=== PATIENT | male | born 1960 | race Caucasian/White ===

== ENCOUNTER 2021-08-24 13:27 | Inpatient (IN) ==
[2021-08-24 13:47] VITALS: BMI 32.1
[2021-08-24] MEDS ORDERED: NS 1,000 ML IV 1,000 ML ONE ×3 (13:57→16:31)
[2021-08-24] MEDS ORDERED: NS 1,000 ML IV 1,000 ML IV ONE ×3 (14:03→16:29)
[2021-08-24 14:13] LABS: BASOPHILS % (AUTO) 0.3 % (0.2-1.0); HEMATOCRIT 37.6 % (42.0-54.0); HEMOGLOBIN 12.8 g/dL (13.5-18.0); LYMPHOCYTES # (AUTO) 0.6 X10^3/uL (1.3-2.9); LYMPHOCYTES % (AUTO) 6.1 % (21.0-51.0); MEAN CORPUSCULAR HEMOGLOBIN 27.1 pg (27.0-34.0); MEAN CORPUSCULAR VOLUME 79.8 fL (80.0-100.0); MEAN PLATELET VOLUME 7.6 fL (7.4-11.0); MONOCYTES # (AUTO) 1.3 x10^3/uL (0.3-0.8); MONOCYTES % (AUTO) 13.3 % (0.0-13.0); NEUTROPHILS # (AUTO) 7.8 x10^3/uL (2.2-4.8); NEUTROPHILS % (AUTO) 80.3 % (42.0-75.0); RED BLOOD COUNT 4.71 X10^6/uL (4.7-6.0); RED CELL DISTRIBUTION WIDTH 16.4 % (11.6-16.5); WHITE BLOOD COUNT 9.7 X10^3/uL (3.6-10.0)
[2021-08-24 14:22] LABS: ALANINE AMINOTRANSFERASE 31 Units/L (12-78); ALBUMIN 3.5 g/dL (3.4-5.0); ALKALINE PHOSPHATASE 66 Units/L (46-116); ASPARTATE AMINO TRANSFERASE 16 Units/L (15-37); BLOOD UREA NITROGEN 31 mg/dL (7-18); CARBON DIOXIDE 24.2 mmol/L (21-32); CHLORIDE 94 mmol/L (98-107); COR NA(FOR HYPERGLY) 135 mmol/L (136-145); CREATININE 2.09 mg/dL (0.70-1.30); SODIUM 130 mmol/L (136-145); TOTAL PROTEIN 7.5 g/dL (6.4-8.2); eGFR NON BLACK RACES 34 (>60)
[2021-08-24 15:17] LABS: CKMB % 0.7 % (<4); CREATINE KINASE 144 Units/L (39-308); CREATINE KINASE MB < 1.0 ng/mL (0-4.0); MAGNESIUM 1.1 mg/dL (1.7-2.9); TSH (3RD GENERATION) 1.547 uIU/mL (0.358-3.74)
--- NOTE | 2021-08-24 15:42 | DR.GENAD ---
HPI Time Seen Time Seen by Provider: 08/24/21 14:00 PCP Primary Care Physician: andres hamilton HPI Comment HPI Comment: Acccording to patient was well before 3 days ago.They ate at a [place] restaurent and thne later develoed nausea vomiting and abdominal pain .Vomiting improved this morning however now has developed non bloody watery diarrhea Has not jennifer eating any solid food but has drunk oral hydration and has been able to keep it down.With onset of diarrhea patient has been more drowsier .Pt did take 200 mg of gabapentin and blood sugar has been running over 200.No one at home with similar problems Complaint/Symptoms Chief Complaint Doctors Comments: diarrhea Chief Complaint:: dehydrated - kept down 3 liquid IVs sincer yesterday, diabetic - last check was 303 Self Treatment fo Chief Complaint: liquid IV po x 3 since yesterday Nurses notes reviewed Nurses Notes Review: Yes Source History Provided: Patient and Significant Other Mode of Arrival Mode of Arrival: Wheelchair Timing Onset of Chief Complaint: 08/23/21 Came on: Gradually Duration Duration: Since Onset Duration: Days Severity Severity: Moderate PMH PMH Past Medical History: Yes Past Medical History: Diabetes, Dyslipidemia, GERD, Headaches and Hypertension Past Medical History Comment: charcot foot problem to the right foot - in boot Past Surgical History: Yes Surgical History: Cholecystectomy Past Surgical History Comment: begnin lesion, vasectomy, vascular/ vein surg, Family History History of Family Medical Conditions: Yes Family Medical History: Diabetes Mellitus, Cancer, [place], Coronary Artery Disease and Hypertension Social History Does patient currently use any type of tobacco product: No Have you used tobacco products in the last 12 months: No Type of Tobacco Use: None Does any household member use tobacco: No Alcohol Use: None Do you use any recreational Drugs:: No Lives With: Spouse Lives Where: Home Infectious screening In the last 2 months have you had wt loss of >10#?: NO Have you had fever, night sweats or hemotysis?: No Have you traveled outside the country in the last 6 months?: No Isolation: Standard ROS Review of Systems Constitutional: No Symptoms Reported Eyes: No Symptoms Reported ENTM: No Symptoms Reported Respiratoy: No Symptoms Reported Cardiovascular: No Symptoms Reported Gastrointestinal/Abdominal: See HPI Genitourinary: See HPI Neurological: See HPI Musculoskeletal: No Symptoms Reported Integumentary: No Symptoms Reported Hematologic/Lymphatic: No Symptoms Reported Endocrine: No Symptoms Reported Psychiatric: No Symptoms Reported PE Vital Signs Vitals: Temperature 97.4 F Pulse Rate 136 Respiratory Rate 42 Blood Pressure [Left Arm] 136/74 Blood Pressure 174/69 O2 Sat by Pulse Oximetry 95 General Limitations: No Limitations General Appearance: Other (drowsy but arousabale ) Head Head Exam: Normal Inspection, Atraumatic and Normocephalic Eyes Eye exam: PERRL ENT ENT Exam: Mucous Membranes Dry TM/Canal Exam: Bilateral: Normal Throat Exam: Normal Inspection Neck Neck Exam: Normal Inspection and Full ROM Chest Chest Inspection: Normal Inspection and Symmetric Chest Wall Rise Respiratory Respiratory Exam: Normal Lung Sounds Bilat Respiratory Exam: Bilateral: Clear to Auscultation Cardiovascular Cardiovascular Exam: Tachycardia, +S1 and +S2 Abdominal Exam Abdominal Exam: Normal Bowel Sounds, Soft and Hyperactive Bowel Sounds Neurologic Neurological Exam: Alert Skin Skin Exam: Normal Color Other Exam Other Exam: charcot joint right ankle MDM Additional Information Additional Information Obtained From: Old Records Differential Diagnosis Differential Diagnosis: gastorenetritis ,dehydration ,Tacchycardia ,uncontrolled DM type2 COURSE Treatment Treatment: labs ,IV fluids EKG ,magneseium supplement . ROR Labs Reviewed Laboratory Results Reviewed?: Yes Result Diagrams: 08/24/21 14:00 08/24/21 14:00 Laboratory: WBC 9.7 X10^3/uL (3.6-10.0) 08/24/21 14:00 RBC 4.71 X10^6/uL (4.7-6.0) 08/24/21 14:00 Hgb 12.8 g/dL (13.5-18.0) L 08/24/21 14:00 Hct 37.6 % (42.0-54.0) L 08/24/21 14:00 MCV 79.8 fL (80.0-100.0) L 08/24/21 14:00 MCH 27.1 pg (27.0-34.0) 08/24/21 14:00 MCHC 34.0 g/dL (33.0-35.0) 08/24/21 14:00 RDW 16.4 % (11.6-16.5) 08/24/21 14:00 Plt Count 221 X10^3/uL (150.0-450.0) 08/24/21 14:00 MPV 7.6 fL (7.4-11.0) 08/24/21 14:00 Neut % (Auto) 80.3 % (42.0-75.0) H 08/24/21 14:00 Lymph % (Auto) 6.1 % (21.0-51.0) L 08/24/21 14:00 [place] % (Auto) 13.3 % (0.0-13.0) H 08/24/21 14:00 Eos % (Auto) 0.0 % (0.9-2.9) L 08/24/21 14:00 Baso % (Auto) 0.3 % (0.2-1.0) 08/24/21 14:00 Neut # (Auto) 7.8 x10^3/uL (2.2-4.8) H 08/24/21 14:00 Lymph # (Auto) 0.6 X10^3/uL (1.3-2.9) L 08/24/21 14:00 [place] # (Auto) 1.3 x10^3/uL (0.3-0.8) H 08/24/21 14:00 Eos # (Auto) 0.0 x10^3/uL (0.0-0.2) 08/24/21 14:00 Baso # (Auto) 0.0 X10^3/uL (0.0-0.1) 08/24/21 14:00 Absolute Nucleated RBC 0.0 /100WBC 08/24/21 14:00 Sodium 130 mmol/L (136-145) L 08/24/21 14:00 Corrected Sodium 135 mmol/L (136-145) L 08/24/21 14:00 Potassium 4.4 mmol/L (3.5-5.1) 08/24/21 14:00 Chloride 94 mmol/L (98-107) L 08/24/21 14:00 Carbon Dioxide 24.2 mmol/L (21-32) 08/24/21 14:00 BUN 31 mg/dL (7-18) H 08/24/21 14:00 Creatinine 2.09 mg/dL (0.70-1.30) H 08/24/21 14:00 Est GFR (MDRD) Af Amer 42 (>60) L 08/24/21 14:00 Est GFR (MDRD) Non-Af 34 (>60) L 08/24/21 14:00 Glucose 297 mg/dL (65-99) H 08/24/21 14:00 Calcium 9.0 mg/dL (8.5-10.1) 08/24/21 14:00 Corrected Calcium TNP 08/24/21 14:00 Magnesium 1.1 mg/dL (1.7-2.9) L 08/24/21 14:00 Total Bilirubin 1.70 mg/dL (0.2-1.0) H 08/24/21 14:00 Direct Bilirubin 0.40 mg/dL (0-0.2) H 08/24/21 14:00 AST 16 Units/L (15-37) 08/24/21 14:00 ALT 31 Units/L (12-78) 08/24/21 14:00 Alkaline Phosphatase 66 Units/L (46-116) 08/24/21 14:00 Creatine Kinase 144 Units/L (39-308) 08/24/21 14:00 CK-MB (CK-2) < 1.0 ng/mL (0-4.0) 08/24/21 14:00 CK/CKMB % Calc 0.7 % (<4) 08/24/21 14:00 Troponin I High Sens 23.4 ng/L (4.0-60.0) 08/24/21 14:00 Total Protein 7.5 g/dL (6.4-8.2) 08/24/21 14:00 Albumin 3.5 g/dL (3.4-5.0) 08/24/21 14:00 Globulin 4.0 g/dL (2.5-4.5) 08/24/21 14:00 Albumin/Globulin Ratio 0.9 Ratio (1.1-2.1) L 08/24/21 14:00 TSH 3rd Generation 1.547 uIU/mL (0.358-3.74) 08/24/21 14:00 SARS CoV-2 RNA Rapid ANIBAL Negative (NEGATIVE) 08/24/21 15:05 EKG atrial flutter according to its chronic with rate of 140 cardiac enzymes normal Opioid Opioid Risk Tool Age (Donny box if 16-45): No History of Preadolescent Sexual Abuse: No Total: 0 Total Score Risk Category: Low Risk Copyright: Sesar ROGER predicting aberrant behaviors Diagnosis Discharge Problem: Dehydration, severe, Atrial flutter, paroxysmal, Hypomagnesemia Uncontrolled diabetes mellitus Qualifiers: Diabetes mellitus type: type 2 Glycemic state: with hyperglycemia Qualified Code(s): E11.65 - Type 2 diabetes mellitus with hyperglycemia Acute renal failure Qualifiers: Acute renal failure type: unspecified Qualified Code(s): N17.9 - Acute kidney failure, unspecified Instructions Forms: Precautions for COVID19 [facility] Social Distancing
[2021-08-24] MEDS ORDERED: CARDIZEM INJ 50 MG VIAL IVP ONE ×2 (16:10→16:58)
[2021-08-24] MEDS ORDERED: CARDIZEM INJ 50 MG VIAL ONE (16:12)
[2021-08-24] MEDS ORDERED: MAGNESIUM SULFATE 1 GRAM/100 mL PREMIX 1 G/100 ML BAG IV ONE ×2 (16:14→16:15)
[2021-08-24] MEDS ORDERED: ZOFRAN INJ 4 MG VIAL ONE (16:33)
[2021-08-24] MEDS: ZOFRAN INJ 4 MG VIAL IVP PRN (16:34)
[2021-08-24] MEDS: TOPROL XL PO SCH (18:38)
[2021-08-24] MEDS: NS 1,000 ML IV 1,000 ML IV SCH (18:38)
[2021-08-24] MEDS: ELIQUIS PO SCH ×2 (18:38→20:01)
[2021-08-24] MEDS ORDERED: TYLENOL 325 MG TAB PO ONE (19:45)
--- NOTE | 2021-08-24 19:46 | RAD ---
HISTORYAbscess, pain and swellingSTUDYFOOT, RIGHTCOMPARISONNone availableTECHNIQUERight foot radiographs, 3 views, AP, oblique and lateral projectionsFINDINGSAge indeterminate fracture at the medial aspect of the navicular bone as well as a type 2 os navicular.Normal joint spaces.Diffuse soft tissue edema.No soft tissue gas visualized.IMPRESSION1. Age indeterminate fracture at the medial aspect of the navicular bone as well as a type 2 os navicular.2. Diffuse soft tissue edema. No soft tissue gas visualized.Electronically signed by: Jeremias Alberto (Aug 24, 2021 19:45:10)
[2021-08-24] MEDS ORDERED: NS 100 ML IV 100 ML ONE (19:48)
[2021-08-24] MEDS ORDERED: INVanz INJ 1 GRAM VIAL ONE (19:48)
[2021-08-24] MEDS ORDERED: ZYVOX TAB 600 MG ONE (19:48)
[2021-08-24] MEDS: TYLENOL 325 MG TAB PO PRN (19:50)
[2021-08-24] MEDS: ZYVOX TAB 600 MG PO SCH (20:02)
[2021-08-24] MEDS: NovoLIN R (or HumuLIN R) SUBCUT PRN (20:16)
[2021-08-24] MEDS: SNACK - Diabetic Appropriate PO SCH (20:55)
[2021-08-24] MEDS ORDERED: ROSUVASTATIN 40 MG PO SCH (21:00)
[2021-08-24] MEDS ORDERED: INVanz INJ 1 GRAM VIAL 1 G in NS 100 ML IV 100 ML IV SCH (21:00)
[2021-08-24] MEDS ORDERED: CRESTOR TAB 10 MG PO ONE (21:14)
[2021-08-24] MEDS: FLOMAX PO SCH (21:16)
--- NOTE | 2021-08-24 21:17 | CT ---
HISTORYAbscess, pain and swelling with open woundSTUDYLOWER EXT W/O CONCOMPARISONNone available.TECHNIQUENon-contrast axial CT images of the right lower extremity. Images were reformatted into coronal and sagittal planes for further evaluation.Radiation dose: 397.70 mGy-cm total DLPFINDINGSAge-indeterminate fracture in the medial aspect of the navicular bone.Incidental type 2 os navicular.Age-indeterminate fracture in the medial aspect of the distal calcaneus.Small amount of gas surrounding the fracture sites along the medial aspect of the navicular bone.Tiny foci of gas in the sinus tarsi.Small amount of gas in the posterior tibiotalar joint.Diffuse soft tissue edema.Nonspecific low-attenuation collection in the lateral foot adjacent to the base of the 4th metatarsal.Soft tissue edema in the lateral foot deep to the cuboid bone.IMPRESSION1. Age-indeterminate fractures in the medial aspect of the navicular bone and the medial distal aspect of the calcaneus.2. Gas adjacent to the fracture sites, in the sinus tarsi and scattered in the soft tissues near the base of the 4th metatarsal is most consistent with gas gangrene. Gas within the posterior tibiotalar joint is consistent with gangrene/septic arthritis.3. Low-attenuation collection near the base of the 4th metatarsal could represent an abscess; not well characterized without intravenous contrast.Electronically signed by: Jeremias Alberto (Aug 24, 2021 21:16:15)
[2021-08-25] MEDS: ZOFRAN INJ 4 MG VIAL IVP PRN (03:05)
[2021-08-25] MEDS: NS 1,000 ML IV 1,000 ML IV SCH ×3 (05:17→16:28)
[2021-08-25 05:28] LABS: BASOPHILS % (AUTO) 0.3 % (0.2-1.0); HEMATOCRIT 28.5 % (42.0-54.0); HEMOGLOBIN 9.8 g/dL (13.5-18.0); LYMPHOCYTES # (AUTO) 0.6 X10^3/uL (1.3-2.9); LYMPHOCYTES % (AUTO) 10.8 % (21.0-51.0); MEAN CORPUSCULAR HEMOGLOBIN 27.1 pg (27.0-34.0); MEAN CORPUSCULAR HGB CONC 34.2 g/dL (33.0-35.0); MEAN CORPUSCULAR VOLUME 79.1 fL (80.0-100.0); MEAN PLATELET VOLUME 7.6 fL (7.4-11.0); MONOCYTES # (AUTO) 0.7 x10^3/uL (0.3-0.8); MONOCYTES % (AUTO) 11.3 % (0.0-13.0); NEUTROPHILS # (AUTO) 4.6 x10^3/uL (2.2-4.8); NEUTROPHILS % (AUTO) 77.6 % (42.0-75.0); RED CELL DISTRIBUTION WIDTH 15.9 % (11.6-16.5)
[2021-08-25 05:46] LABS: ALBUMIN 2.5 g/dL (3.4-5.0); CALCIUM 7.6 mg/dL (8.5-10.1); CARBON DIOXIDE 23.5 mmol/L (21-32); COR CA(FOR HYPOALB) 8.8 mg/dL (8.5-10.1); CREATININE 1.66 mg/dL (0.70-1.30); MAGNESIUM 1.3 mg/dL (1.7-2.9); TOTAL PROTEIN 5.8 g/dL (6.4-8.2)
[2021-08-25] MEDS: TOPROL XL PO SCH (08:47)
[2021-08-25] MEDS: ZYVOX TAB 600 MG PO SCH ×2 (08:47→21:39)
[2021-08-25] MEDS: SYNTHROID 75 mcg TAB PO SCH (08:47)
[2021-08-25] MEDS: MAGNESIUM SULFATE 1 GRAM/100 mL PREMIX 1 G/100 ML BAG IV SCH ×2 (09:02→09:58)
[2021-08-25] MEDS ORDERED: STERILE WATER IRRIGATION IR ONE (09:27)
--- NOTE | 2021-08-25 11:00 | DR.CONSULT ---
CONSULT Consultation for Day of: Date: 08/25/21 Chief Complaint Chief Complaint: This 61 year old male with diabetes and Charcot right foot was seen in the emergency room for nausea and vomiting and abdominal pain with watery diarrhea. He had complained of problems with his right foot and plain X- rays showed evidence of possible gas in the plantar aspect of the foot. This was confirmed by CT scan. Also history of atrial fibrillation Allergies Allergies Allergy/AdvReac Type Severity Reaction Status Date / Time codeine AdvReac RASH Verified 01/28/19 16:32 History of Present Illness History of Present Illness: See above Past Medical History Past Medical History: Diabetes, Dyslipidemia, GERD, Headaches, Hypertension and Hypothyroidism Additional Medical History: hypercholesterolemia , b/l LE venous insufficiency Past Surgical History Surgical History: Cholecystectomy Family History Family Medical History: Diabetes Mellitus, Cancer, [place], Coronary Artery Disease and Hypertension Social History Does patient currently use any type of tobacco product: No Have you used tobacco products in the last 12 months: No Type of Tobacco Use: None Does any household member use tobacco: No Alcohol Use: None Drug Use: None Medications Home Medications: codeine Adverse Reaction (Verified 01/28/19 16:32) RASH CONTINUE taking the following medications Lactobac. rhamnosus GG-inulin [[facility] [employer]] 1 cap PO DAILY 08/24/21 [History] apixaban [Eliquis] 5 mg PO BID 08/24/21 [History] dicyclomine 20 mg PO QID PRN 08/24/21 [History] esomeprazole magnesium [Nexium 24HR] 20 mg PO DAILY PRN 08/24/21 [History] famotidine 40 mg PO BID 08/24/21 [History] famotidine-Ca carb-mag hydrox [Pepcid Complete] 1 tab PO DAILY PRN 08/24/21 [History] fexofenadine-pseudoephedrine [Julissa-D 12 Hour] 1 tab PO DAILY PRN 08/24/21 [History] gabapentin 200 mg PO HS 08/24/21 [History] gemfibrozil 600 mg PO BID 08/24/21 [History] hydrochlorothiazide 25 mg PO DAILY 08/24/21 [History] ibuprofen 600 mg PO DAILY PRN 08/24/21 [History] insulin glargine [Lantus Solostar U-100 Insulin] 60 unit SUBCUT DAILY 08/24/21 [History] insulin regular hum U-500 conc [Humulin R U-500 (Conc) Varunpen] 55 unit SUBCUT BID 08/24/21 [History] levothyroxine 75 mcg PO DAILY 08/24/21 [History] losartan 100 mg PO DAILY 08/24/21 [History] magnesium oxide 400 mg PO DAILY 08/24/21 [History] metoclopramide HCl 10 mg PO QID 08/24/21 [History] ondansetron 8 mg PO QID PRN 08/24/21 [History] pantoprazole 40 mg PO BID 08/24/21 [History] saxagliptin [Onglyza] 5 mg PO DAILY 08/24/21 [History] semaglutide [Ozempic] 1 mg SUBCUT WEEKLY 08/24/21 [History] tadalafil 5 mg PO DAILY 08/24/21 [History] tamsulosin 0.4 mg PO HS 08/24/21 [History] testosterone cypionate 100 mg IM WEEKLY 08/24/21 [History] Review of Systems Constitutional: See HPI Eyes: denies No Symptoms Reported ENT: denies No Symptoms Reported Respiratory: denies No Symptoms Reported Cardiovascular: denies No Symptoms Reported Gastrointestinal: See HPI Genitourinary: No Symptoms Reported Musculoskeletal: Foot Pain (pain of plantar aspect of the right foot) Skin: No Symptoms Reported Neurological: No Symptoms Reported Physical Exam Vital Signs: Temperature 98.8 F Pulse Rate [Left] 109 Pulse Rate 126 Respiratory Rate 20 Blood Pressure [Left Arm] 127/62 Blood Pressure 132/60 O2 Sat by Pulse Oximetry 94 Oriented: Normal, Time, Person and Place Eyes: Normal Ear: Normal Nose: Normal Throat: Normal Respiratory: Clear Throughout Cardiovascular: Tachycardia (atrial fibrillation but has controlled rate , not tachycardis at this time ) : Normal Auscultation: Bowel Sounds: Increased Palpation: Normal Tenderness: Normal Musculoskeletal: Foot (Charcot foot on right with multiple fractures as noted on xray and CT with gas . ) Psychiatric: Normal Mood Description: Apathetic Affect: Quiet Speech Pattern: Clear Plan (1) Gas gangrene: Status: Acute Plan: To OR for Incision, drainage and culture right foot and placement of wound vacuum, IV antibiotics (2) Diabetes mellitus: Status: Acute Qualifiers: Diabetes mellitus type: type 2 Plan: treat with sliding scale at this time (3) Hypercholesteremia: Status: Acute Plan: Home medications (4) Hypertension: Status: Acute Plan: home mediactions (5) Venous insufficiency of both lower extremities: Status: Acute (6) GERD (gastroesophageal reflux disease): Status: Acute Plan: home medications (7) Neuropathy: Status: Acute Plan: home medications (8) Hypothyroid: Status: Acute Plan: home medications (9) Atrial fibrillation: Status: Acute Plan: Home medications including Eliquis
[2021-08-25] MEDS ORDERED: MARCAINE 0.5% ONE (11:14)
[2021-08-25] MEDS ORDERED: NS 1,000 ML IV 1,000 ML ONE (11:14)
[2021-08-25] MEDS ORDERED: VERSED ONE (11:26)
[2021-08-25] MEDS ORDERED: ZOFRAN INJ 4 MG VIAL ONE (11:26)
[2021-08-25] MEDS ORDERED: OFIRMEV IV 1000 MG VIAL 1,000 MG/100 ML VIAL IV ONE (11:27)
[2021-08-25] MEDS ORDERED: DECADRON INJ ONE (11:27)
[2021-08-25] MEDS ORDERED: DIPRIVAN VIAL 20 ML ONE (11:27)
[2021-08-25] MEDS ORDERED: PEPCID 20 MG VIAL ONE (11:27)
[2021-08-25] MEDS ORDERED: XYLOCAINE 2 % (PLAIN) ONE (11:27)
[2021-08-25] MEDS ORDERED: FENTANYL VIAL INJ 100 mcg ONE (11:33)
[2021-08-25] MEDS ORDERED: KETAMINE 50 MG/5 ML-NACL SYRNG ONE (11:33)
[2021-08-25] MEDS ORDERED: TORADOL 30 MG VIAL ONE (11:57)
--- NOTE | 2021-08-25 12:08 | OR.IMMED ---
IMMEDIATE POST-OP NOTE Immediate Post-Op Note Pre-Op Diagnosis: gas gangrene plantar right foot Post-Op Diagnosis: Abscess plantar right foot with significant osteomyelitis left foot involving at least the navicular , calcaneus and base of 4th and 5th metatarsals Procedure: Incise, drain, irrigate and culture abscess right foot , place wound vacuum Description of Procedure: see operative summary Surgeon/Finish Filer: Ruthie Findings: as above Specimens Removed: Gross pus from the plantar foot , cultures obtained Estimated Blood Loss: < 25 cc Drains: NONE Complications: none Discharge Progress Notes: Return to floor, Continue IV antibiotics and wound vacuum. Consult Foot and Ankle Final Diagnosis: as above
[2021-08-25] MEDS: ZOSYN VIAL 3.375 GRAMS 3.375 G in NS 100 ML IV 100 ML IV SCH ×3 (13:56→21:39)
[2021-08-25] MEDS: NovoLIN R (or HumuLIN R) SUBCUT PRN ×2 (16:49→21:39)
[2021-08-25] MEDS: SNACK - Diabetic Appropriate PO SCH (20:30)
[2021-08-25] MEDS: FLOMAX PO SCH (21:38)
[2021-08-25] MEDS: CRESTOR TAB 10 MG PO SCH (21:38)
[2021-08-25] MEDS: LANTUS SC SCH (21:45)
[2021-08-26] MEDS: ZOFRAN INJ 4 MG VIAL IVP PRN ×2 (00:02→21:33)
[2021-08-26] MEDS: NS 1,000 ML IV 1,000 ML IV SCH ×4 (00:25→17:52)
[2021-08-26 04:34] LABS: BASOPHILS % (AUTO) 0 % (0.2-1.0); EOSINOPHILS % (AUTO) 0.2 % (0.9-2.9); HEMATOCRIT 27.2 % (42.0-54.0); HEMOGLOBIN 9.4 g/dL (13.5-18.0); LYMPHOCYTES # (AUTO) 0.6 X10^3/uL (1.3-2.9); LYMPHOCYTES % (AUTO) 10.1 % (21.0-51.0); MEAN CORPUSCULAR HEMOGLOBIN 27.2 pg (27.0-34.0); MEAN CORPUSCULAR HGB CONC 34.5 g/dL (33.0-35.0); MEAN CORPUSCULAR VOLUME 78.6 fL (80.0-100.0); MEAN PLATELET VOLUME 7.6 fL (7.4-11.0); MONOCYTES # (AUTO) 0.5 x10^3/uL (0.3-0.8); MONOCYTES % (AUTO) 9.5 % (0.0-13.0); NEUTROPHILS # (AUTO) 4.5 x10^3/uL (2.2-4.8); NEUTROPHILS % (AUTO) 80.2 % (42.0-75.0); RED BLOOD COUNT 3.46 X10^6/uL (4.7-6.0); RED CELL DISTRIBUTION WIDTH 16.3 % (11.6-16.5); WHITE BLOOD COUNT 5.6 X10^3/uL (3.6-10.0)
[2021-08-26 04:47] LABS: ALBUMIN 2.3 g/dL (3.4-5.0); CALCIUM 7.7 mg/dL (8.5-10.1); CARBON DIOXIDE 23.5 mmol/L (21-32); COR CA(FOR HYPOALB) 9.1 mg/dL (8.5-10.1); CREATININE 1.65 mg/dL (0.70-1.30); TOTAL PROTEIN 6.1 g/dL (6.4-8.2)
[2021-08-26] MEDS: NovoLIN R (or HumuLIN R) SUBCUT PRN (05:55)
[2021-08-26] MEDS: ZOSYN VIAL 3.375 GRAMS 3.375 G in NS 100 ML IV 100 ML IV SCH ×3 (05:55→21:30)
[2021-08-26] MEDS: TYLENOL 325 MG TAB PO PRN (07:24)
--- NOTE | 2021-08-26 08:38 | DR.CONSULT ---
CONSULT Consultation for Day of: Date: 08/26/21 Chief Complaint Chief Complaint: Mr. Lynch is a 61 year old male with a PMHx of DM with right charcot. He also has a Hx of DVT and was prescribed Eliquis outpatient. Patient is s/p I&D by Dr. Hendricks on 08/25 for Gas in the tissues. Patient is doing well this morning with no pain. He denies any f/c/n/v/sob/calf pain. Allergies Allergies Allergy/AdvReac Type Severity Reaction Status Date / Time codeine AdvReac RASH Verified 01/28/19 16:32 Past Medical History Past Medical History: Diabetes, Dyslipidemia, GERD, Headaches, Hypertension and Hypothyroidism Additional Medical History: hypercholesterolemia , b/l LE venous insufficiency Past Surgical History Surgical History: Cholecystectomy Family History Family Medical History: Diabetes Mellitus, Cancer, [place], Coronary Artery Disease and Hypertension Social History Does patient currently use any type of tobacco product: No Have you used tobacco products in the last 12 months: No Type of Tobacco Use: None Does any household member use tobacco: No Alcohol Use: None Drug Use: None Medications Home Medications: codeine Adverse Reaction (Verified 01/28/19 16:32) RASH CONTINUE taking the following medications Lactobac. rhamnosus GG-inulin [[facility] [employer]] 1 cap PO DAILY 08/24/21 [History] apixaban [Eliquis] 5 mg PO BID 08/24/21 [History] dicyclomine 20 mg PO QID PRN 08/24/21 [History] esomeprazole magnesium [Nexium 24HR] 20 mg PO DAILY PRN 08/24/21 [History] famotidine 40 mg PO BID 08/24/21 [History] famotidine-Ca carb-mag hydrox [Pepcid Complete] 1 tab PO DAILY PRN 08/24/21 [History] fexofenadine-pseudoephedrine [Julissa-D 12 Hour] 1 tab PO DAILY PRN 08/24/21 [History] gabapentin 200 mg PO HS 08/24/21 [History] gemfibrozil 600 mg PO BID 08/24/21 [History] hydrochlorothiazide 25 mg PO DAILY 08/24/21 [History] ibuprofen 600 mg PO DAILY PRN 08/24/21 [History] insulin glargine [Lantus Solostar U-100 Insulin] 60 unit SUBCUT DAILY 08/24/21 [History] insulin regular hum U-500 conc [Humulin R U-500 (Conc) Kwikpen] 55 unit SUBCUT BID 08/24/21 [History] levothyroxine 75 mcg PO DAILY 08/24/21 [History] losartan 100 mg PO DAILY 08/24/21 [History] magnesium oxide 400 mg PO DAILY 08/24/21 [History] metoclopramide HCl 10 mg PO QID 08/24/21 [History] ondansetron 8 mg PO QID PRN 08/24/21 [History] pantoprazole 40 mg PO BID 08/24/21 [History] saxagliptin [Onglyza] 5 mg PO DAILY 08/24/21 [History] semaglutide [Ozempic] 1 mg SUBCUT WEEKLY 08/24/21 [History] tadalafil 5 mg PO DAILY 08/24/21 [History] tamsulosin 0.4 mg PO HS 08/24/21 [History] testosterone cypionate 100 mg IM WEEKLY 08/24/21 [History] Physical Exam Vital Signs: Temperature 97.6 F Pulse Rate [Left] 95 Pulse Rate 107 Respiratory Rate 18 Blood Pressure [Left Arm] 142/70 Blood Pressure 130/70 O2 Sat by Pulse Oximetry 92 Oriented: Normal, Time and Person Cardiovascular: Other (Pulses are intact b/l. Cap fill immediate to the b/l digits. ) Skin: Wound (Right foot plantar wound with no purulence. No Malodor. No erythema. No fluctuance. Skin edges appear viable. ) Musculoskeletal: Sensory Deficit (Sensation diminshed to the LE b/l.) Plan (1) Gas gangrene: Status: Acute (2) Diabetes mellitus: Status: Acute Qualifiers: Diabetes mellitus type: type 2 (3) Hypercholesteremia: Status: Acute (4) Hypertension: Status: Acute (5) Venous insufficiency of both lower extremities: Status: Acute (6) GERD (gastroesophageal reflux disease): Status: Acute (7) Neuropathy: Status: Acute (8) Hypothyroid: Status: Acute (9) Atrial fibrillation: Status: Acute (10) Charcot's joint, right ankle and foot: Status: Acute Plan: Mr. Lynch is a 61 year old male with right Charcot foot. S/p emergent I&D by Dr. Hendricks for gas gangrene. He is with VSS and NAD. No leukocytosis. Plan: Wound vac was reapplied this morning by me NWB on the right. Continue with abx Tentative plan for the OR on Thursday. Pending biopsies and wound cultures Will follow Please do not hesitate to contact me with questions or concerns. Travis Faye [phone]
[2021-08-26] MEDS: TOPROL XL PO SCH (09:15)
[2021-08-26] MEDS: SYNTHROID 75 mcg TAB PO SCH (09:15)
[2021-08-26] MEDS: ZYVOX TAB 600 MG PO SCH ×2 (09:16→21:17)
[2021-08-26] MEDS ORDERED: BENTYL CAP 10 MG PO PRN (10:23)
[2021-08-26] MEDS: PEPCID TAB 40 MG PO SCH ×2 (10:58→21:18)
[2021-08-26] MEDS: PROTONIX TAB 40 MG PO SCH ×2 (10:58→21:17)
[2021-08-26] MEDS: VITAMIN B-12 PO SCH (10:58)
[2021-08-26] MEDS: REGLAN TAB 10 MG PO SCH ×4 (10:58→21:16)
[2021-08-26] MEDS: COZAAR PO SCH (10:58)
[2021-08-26] MEDS: LOPID PO SCH ×2 (10:58→21:17)
[2021-08-26] MEDS: VITAMIN D3 125 mcg (5,000 UNITS) PO SCH (10:59)
[2021-08-26] MEDS: NovoLIN R (or HumuLIN R) SUBCUT SCH ×2 (12:11→21:19)
--- NOTE | 2021-08-26 17:09 | NOTE.SOAP ---
Soap Note Note for Day of Date of Exam: 08/26/21 Subjective Data Subjective Data: POD 1 after drainage left foot plantar abscess. Doing well. Wound vacuum changed . Objective Data Temperature: 97.8 F Pulse Rate: 90 Respiratory Rate: 20 Blood Pressure: 138/73 O2 Sat by Pulse Oximetry: 97 Objective Data: Left foot with wound vacuum in place , Hgb = 9.4, Glucose still elevated at > 300, WBC= 5.6 K Assessment Assessment: Left plantar foot abscess, Charcot left foot, possible osteomyelitis left foot. Plan Plan: Await cultures , Foot and Ankle has consulted with the patient.
--- NOTE | 2021-08-26 18:06 | DR.OPNOTE ---
OP NOTE Pre-Op Diagnosis: Abscess left plantar foot Post-Op Diagnosis: same, possible osteomyelitis left foot, Charcot deformity left foot Procedure Date Date Of Procedure: 08/25/21 Procedure: PROCEDURE : Incision and drainage abscess left plantar foot NARRATIVE : The patient was taken to the operative suite and placed in the Supine position. He was given IV sedation. Sedation was supervised by myself Entire left foot prepped and draped in sterile fashion. Time out for the procedure obtained . Plantar surface of the left foot injected with 8 cc's of 0. 5% Marcaine and a transverse incision was made and gross pus released. Cultures obtained . Area probed with my index finger and I am concerned about possible osteomyelitis of the navicular, the calcaneus and the base of the 4th and 5th metatarsals. The area was irrigated again. Black foam packed into the wound all the way flush with the skin. The foam covered with adhesive drape. 1 cm square incision made over the foam through the drape and foam place over this creating a bridge to the dorsal aspect of the foot also covered with adhesive drape. Incision made over the drape on the dorsal aspect of the foot and the circular trackpad placed over this and the entire dressing placed on suction with the wound vacuum. Type of Anesthesia: Local Anesthesia Comment: plus MAC Findings: abscess left plantar foot Specimen/Pathology: cultures Type of Fluids Used:: Lactated Ringers EBL: less than 25 ccs Drains/Tubes Comment: wound vacuum placed left foot Cultures: cultures of abscess left foot Complications:: none Needle/Sponge Count:: correct Disposition/Condition: Pt. tolerated procedure without difficulty. Taken to PACU in stable condition.
[2021-08-26] MEDS ORDERED: INSULIN REGULAR HUM U SUBCUT SCH (21:00)
[2021-08-26] MEDS: SNACK - Diabetic Appropriate PO SCH (21:15)
[2021-08-26] MEDS: NEURONTIN CAP 100 MG PO SCH (21:16)
[2021-08-26] MEDS: CRESTOR TAB 10 MG PO SCH (21:16)
[2021-08-26] MEDS: FLOMAX PO SCH (21:17)
[2021-08-26] MEDS: LANTUS SC SCH (21:18)
[2021-08-26] MEDS: MELATONIN PO PRN (21:29)
[2021-08-27] MEDS: NS 1,000 ML IV 1,000 ML IV SCH ×3 (01:27→16:39)
[2021-08-27 05:21] LABS: BASOPHILS % (AUTO) 0.4 % (0.2-1.0); EOSINOPHILS % (AUTO) 0.5 % (0.9-2.9); HEMATOCRIT 25.8 % (42.0-54.0); HEMOGLOBIN 8.9 g/dL (13.5-18.0); LYMPHOCYTES # (AUTO) 0.8 X10^3/uL (1.3-2.9); LYMPHOCYTES % (AUTO) 15.4 % (21.0-51.0); MEAN CORPUSCULAR HGB CONC 34.4 g/dL (33.0-35.0); MEAN CORPUSCULAR VOLUME 78.6 fL (80.0-100.0); MEAN PLATELET VOLUME 7.2 fL (7.4-11.0); MONOCYTES # (AUTO) 0.6 x10^3/uL (0.3-0.8); MONOCYTES % (AUTO) 12.1 % (0.0-13.0); NEUTROPHILS # (AUTO) 3.7 x10^3/uL (2.2-4.8); NEUTROPHILS % (AUTO) 71.6 % (42.0-75.0); RED BLOOD COUNT 3.29 X10^6/uL (4.7-6.0); RED CELL DISTRIBUTION WIDTH 16.2 % (11.6-16.5); WHITE BLOOD COUNT 5.2 X10^3/uL (3.6-10.0)
[2021-08-27 05:42] LABS: ALBUMIN 2.2 g/dL (3.4-5.0); CALCIUM 7.7 mg/dL (8.5-10.1); CARBON DIOXIDE 22.4 mmol/L (21-32); COR CA(FOR HYPOALB) 9.1 mg/dL (8.5-10.1); CREATININE 1.53 mg/dL (0.70-1.30); TOTAL PROTEIN 5.9 g/dL (6.4-8.2)
[2021-08-27] MEDS: ZOSYN VIAL 3.375 GRAMS 3.375 G in NS 100 ML IV 100 ML IV SCH ×3 (06:04→21:14)
[2021-08-27] MEDS: NovoLIN R (or HumuLIN R) SUBCUT SCH ×3 (10:33→21:13)
[2021-08-27] MEDS: COZAAR PO SCH (10:33)
[2021-08-27] MEDS: REGLAN TAB 10 MG PO SCH ×4 (10:34→20:45)
[2021-08-27] MEDS: LOPID PO SCH ×2 (10:34→20:44)
[2021-08-27] MEDS: MAG-OX TAB PO SCH (10:34)
[2021-08-27] MEDS: PEPCID TAB 40 MG PO SCH ×2 (10:34→20:45)
[2021-08-27] MEDS: PROTONIX TAB 40 MG PO SCH ×2 (10:34→20:45)
[2021-08-27] MEDS: ZINC SULFATE PO SCH (10:35)
[2021-08-27] MEDS: TOPROL XL PO SCH (10:35)
[2021-08-27] MEDS: VITAMIN D3 125 mcg (5,000 UNITS) PO SCH (10:35)
[2021-08-27] MEDS: VITAMIN B-12 PO SCH (10:35)
[2021-08-27] MEDS: SAXAGLIPTIN 5 MG PO SCH (10:35)
[2021-08-27] MEDS: VSL#3 PO SCH (10:35)
[2021-08-27] MEDS: SYNTHROID 75 mcg TAB PO SCH (10:35)
[2021-08-27] MEDS: ZYVOX TAB 600 MG PO SCH ×2 (10:36→20:45)
--- NOTE | 2021-08-27 10:37 | PCM.PROG ---
Progress Note - Progress Note for Day of Date of Exam: 08/26/21 - Subjective Subjective: IS CURRENTLY BEING TREATED FOR AN ABSCESS TO THE RIGHT FOOT WITH OSTEOMYLITIS, CELLULITIS, AND DEHYDRATION DUE TO INTRACTABLE N/V/D. HE HAS A PMH OF DM II, HTN, HYPERLIPIDEMIA, RIGHT CHARCOT FOOT, DIABETIC NEUROPATHY, AND CHOLECYSTECTOMY. HE WAS TAKEN TO THE OR BY ON 08/25/21 FOR I&D OF WOUND TO THE PLANTAR SURFACE OF THE LEFT FOOT. A WOUND VAC WAS ALSO PLACED OVER THE WOUND. FOOT AND ANKLE SURGEONS WERE CONSULTED. TODAY, HE IS ALERT AND ORIENTED, LYING IN BED ON MORNING ROUNDS. HE DENIES NAUSEA OR VOMITING. HE DOES ADMIT TO GENERALIZED WEAKNESS AND RIGHT FOOT DISCOMFORT AT TIMES. ON EXAMINATION, HEART IS REGULAR IN RATE AND RHYTHM. BILATERAL LUNGS NOTED WITH DIMINISHED LUNG SOUNDS THROUGHOUT. ABDOMEN IS ROUND, SOFT, AND NON- TENDER WITH NORMAL BOWEL SOUNDS NOTED IN ALL QUADRANTS. RIGHT FOOT WOUND PRESENT WITH WOUND VAC. DECREASED SENSATION TO LOWER EXTREMITIES NOTED. SOFT TISSUE SWELLING, ERYTHEMA, AND EDEMA NOTED TO RIGHT FOOT. VITALS THIS MORNING ARE: 97.8-90-20-97%-138/73. LABS WERE OBTAINED. ABNORMAL LAB VALUES INCLUDE THE FOLLOWING: RBC 3.46, HGB 9.4, HCT 27.2, SODIUM 132, BUN 40, CREATININE 1.65, GLUCOSE 326, CALCIUM 7.7, TOTAL PROTEIN 6.1, ALBUMIN 2.3. HE IS CURRENTLY RECEIVING NORMAL SALINE AT 125ML/HR, ZYVOX 600MG PO Q12H, ZOSYN 3.375 IV TID, LANTUS 48 UNITS SC HS, ZOFRAN 4MG IV Q8H PRN, AND HIS HOME MEDICATIONS WERE RESUMED. WE WILL ADJUST HIS HUMULIN R COVERAGE TO 40 UNITS SC BID AND 15 UNITS SC AT 1200. WE WILL ALSO PLACE HIM ON A [place] DIET. FOOT AND ANKLE SURGEONS WILL SEE HIM TODAY. OTHERWISE, WE WILL CONTINUE WITH CURRENT PLAN OF CARE. WE PLAN TO FOLLOW UP WITH AM LABS AND CONTINUE TO MONITOR. TIME SPENT ON CLINICAL ASSESSMENT, REVIEWING LABS AND IMAGING, DECISION MAKING, AND DOCUMENTATION GREATER THAN 45 MINUTES. - Past Medical Family Social History Past Med/Fam/Surg Hx: No changes since H&P Allergies: Allergies codeine Adverse Reaction (Verified 01/28/19 16:32) RASH - Review of Systems ROS: No change since H&P - Vital Signs and I&O's Vital Signs: Temperature 98.3 F Pulse Rate [Left] 90 Pulse Rate 90 Respiratory Rate 20 Blood Pressure [Left Arm] 132/66 Blood Pressure 138/73 O2 Sat by Pulse Oximetry 92 Intake and Output: Intake & Output 08/24/21 08/25/21 08/26/21 08/27/21 11:59 11:59 11:59 11:59 Intake Total 2141 / 2141 3654 / 3654 1485 / 1485 Output Total 1434 / 1434 1060 / 1060 1053 / 1053 Balance 707 / 707 2594 / 2594 432 / 432 - Physical Exam Oriented: Normal, Time, Person Eyes: Normal Ear: Normal Nose: Normal Throat: Normal Respiratory: Generalized, Diminished Cardiovascular: Other (Pulses are intact b/l. Cap fill immediate to the b/l digits.) : Normal Auscultation: Bowel Sounds: Normal Palpation: Normal Tenderness: Normal Skin: Wound (Right foot plantar wound with no purulence. No Malodor. No erythema. No fluctuance. Skin edges appear viable.) Musculoskeletal: Sensory Deficit (Sensation diminshed to the LE b/l.) Psychiatric: Normal Mood Description: Apathetic Affect: Quiet Speech Pattern: Clear - Laboratory and Diagnostics Result Diagrams: 08/27/21 04:47 08/27/21 04:47 Labs: 08/24/21 18:20 Foot - Right Wound Gram Stain - Final 08/24/21 18:20 Foot - Right Wound Culture - Preliminary Staphylococcus Aureus 08/25/21 11:46 Foot - Right Wound Gram Stain - Final 08/25/21 11:46 Foot - Right Wound Culture - Preliminary 08/24/21 20:10 Blood Blood Culture - Preliminary 08/24/21 20:00 Blood Blood Culture - Final Staphylococcus Aureus Laboratory WBC 5.2 X10^3/uL (3.6-10.0) 08/27/21 04:47 RBC 3.29 X10^6/uL (4.7-6.0) L 08/27/21 04:47 Hgb 8.9 g/dL (13.5-18.0) L 08/27/21 04:47 Hct 25.8 % (42.0-54.0) L 08/27/21 04:47 MCV 78.6 fL (80.0-100.0) L 08/27/21 04:47 MCH 27.0 pg (27.0-34.0) 08/27/21 04:47 MCHC 34.4 g/dL (33.0-35.0) 08/27/21 04:47 RDW 16.2 % (11.6-16.5) 08/27/21 04:47 Plt Count 236 X10^3/uL (150.0-450.0) 08/27/21 04:47 MPV 7.2 fL (7.4-11.0) L 08/27/21 04:47 Neut % (Auto) 71.6 % (42.0-75.0) 08/27/21 04:47 Lymph % (Auto) 15.4 % (21.0-51.0) L 08/27/21 04:47 Hunt % (Auto) 12.1 % (0.0-13.0) 08/27/21 04:47 Eos % (Auto) 0.5 % (0.9-2.9) L 08/27/21 04:47 Baso % (Auto) 0.4 % (0.2-1.0) 08/27/21 04:47 Neut # (Auto) 3.7 x10^3/uL (2.2-4.8) 08/27/21 04:47 Lymph # (Auto) 0.8 X10^3/uL (1.3-2.9) L 08/27/21 04:47 Hunt # (Auto) 0.6 x10^3/uL (0.3-0.8) 08/27/21 04:47 Eos # (Auto) 0.0 x10^3/uL (0.0-0.2) 08/27/21 04:47 Baso # (Auto) 0.0 X10^3/uL (0.0-0.1) 08/27/21 04:47 Absolute Nucleated RBC 0.3 /100WBC 08/27/21 04:47 Sodium 136 mmol/L (136-145) 08/27/21 04:47 Corrected Sodium 138 mmol/L (136-145) 08/27/21 04:47 Potassium 3.8 mmol/L (3.5-5.1) 08/27/21 04:47 Chloride 102 mmol/L (98-107) 08/27/21 04:47 Carbon Dioxide 22.4 mmol/L (21-32) 08/27/21 04:47 BUN 32 mg/dL (7-18) H 08/27/21 04:47 Creatinine 1.53 mg/dL (0.70-1.30) H 08/27/21 04:47 Est GFR (MDRD) Af Amer 60 (>60) 08/27/21 04:47 Est GFR (MDRD) Non-Af 49 (>60) L 08/27/21 04:47 Glucose 186 mg/dL (65-99) H 08/27/21 04:47 POC Glucose (mg/dL) 187 mg/dL (65-99) H 08/27/21 05:37 Calcium 7.7 mg/dL (8.5-10.1) L 08/27/21 04:47 Corrected Calcium 9.1 mg/dL (8.5-10.1) 08/27/21 04:47 Magnesium 1.3 mg/dL (1.7-2.9) L 08/25/21 04:51 Total Bilirubin 0.70 mg/dL (0.2-1.0) 08/27/21 04:47 Direct Bilirubin 0.40 mg/dL (0-0.2) H 08/24/21 14:00 AST 61 Units/L (15-37) H 08/27/21 04:47 ALT 70 Units/L (12-78) 08/27/21 04:47 Alkaline Phosphatase 133 Units/L (46-116) H 08/27/21 04:47 Creatine Kinase 144 Units/L (39-308) 08/24/21 14:00 CK-MB (CK-2) < 1.0 ng/mL (0-4.0) 08/24/21 14:00 CK/CKMB % Calc 0.7 % (<4) 08/24/21 14:00 Troponin I High Sens 23.4 ng/L (4.0-60.0) 08/24/21 14:00 Total Protein 5.9 g/dL (6.4-8.2) L 08/27/21 04:47 Albumin 2.2 g/dL (3.4-5.0) L 08/27/21 04:47 Globulin 3.7 g/dL (2.5-4.5) 08/27/21 04:47 Albumin/Globulin Ratio 0.6 Ratio (1.1-2.1) L 08/27/21 04:47 TSH 3rd Generation 1.547 uIU/mL (0.358-3.74) 08/24/21 14:00 SARS CoV-2 RNA Rapid ANIBAL Negative (NEGATIVE) 08/24/21 15:05 - Plan (1) Cellulitis of right foot Status: Acute Plan: IV FLUIDS, ANTIBIOTICS, WOUND CARE, NAUSEA CONTROL, BLOOD GLUCOSE CONTROL AND MONITORING (2) Abscess of right foot Status: Acute (3) Osteomyelitis Status: Suspected Qualifiers: Osteomyelitis type: unspecified type Osteomyelitis location: foot Laterality: right Qualified Code(s): M86.9 - Osteomyelitis, unspecified (4) Dehydration Status: Acute (5) Hyponatremia Status: Acute (6) Hypertension Status: Chronic Qualifiers: Hypertension type: primary hypertension Qualified Code(s): I10 - Essential (primary) hypertension (7) Diabetic neuropathy Status: Chronic Qualifiers: Diabetes mellitus type: type 2 Diabetes mellitus complication detail: with other neurological complication Qualified Code(s): E11.49 - Type 2 diabetes mellitus with other diabetic neurological complication (8) Diabetes mellitus Status: Chronic Qualifiers: Diabetes mellitus type: type 2 Diabetes mellitus director long term care insulin use: with director long term care use Diabetes mellitus complication status: with hyperglycemia Qualified Code(s): E11.65 - Type 2 diabetes mellitus with hyperglycemia; Z79.4 - manager terminal (current) use of insulin
--- NOTE | 2021-08-27 10:42 | PCM.PROG ---
Progress Note - Progress Note for Day of Date of Exam: 08/27/21 - Subjective Subjective: IS CURRENTLY BEING TREATED FOR AN ABSCESS TO THE RIGHT FOOT WITH OSTEOMYLITIS, CELLULITIS, AND DEHYDRATION DUE TO INTRACTABLE N/V/D. HE HAS A PMH OF DM II, HTN, HYPERLIPIDEMIA, RIGHT CHARCOT FOOT, DIABETIC NEUROPATHY, AND CHOLECYSTECTOMY. HE IS DAY 2 S/P I&D OF WOUND TO THE PLANTAR SURFACE OF THE LEFT FOOT. A WOUND VAC IS IN PLACE OVER THE WOUND. TODAY, HE IS ALERT AND ORIENTED, LYING IN BED ON MORNING ROUNDS. HE DENIES NAUSEA OR VOMITING. HE DOES ADMIT TO GENERALIZED WEAKNESS. SPOUSE REPORTS CONFUSION AT TIMES. HE APPARENTLY ATTEMPTED TO GET OUT OF BED AND WOUND VAC CAME OFF SEVERAL TIMES THROUGOUT THE NIGHT. ON EXAMINATION, HEART IS REGULAR IN RATE AND RHYTHM. BILATERAL LUNGS NOTED WITH DIMINISHED LUNG SOUNDS THROUGHOUT. ABDOMEN IS ROUND, SOFT, AND NON-TENDER WITH NORMAL BOWEL SOUNDS NOTED IN ALL QUADRANTS. RIGHT FOOT WOUND PRESENT WITH WOUND VAC. DECREASED SENSATION TO LOWER EXTREMITIES NOTED. SOFT TISSUE SWELLING, ERYTHEMA, AND EDEMA NOTED TO RIGHT FOOT. VITALS THIS MORNING ARE: 98.3-90-20-92%-132/66. LABS WERE OBTAINED. ABNORMAL LAB VALUES INCLUDE THE FOLLOWING: RBC 3.29, HGB 8.9, HCT 25.8, SODIUM 132, BUN 40, CREATININE 1.65, GLUCOSE 326, CALCIUM 7.7, TOTAL PROTEIN 6.1, ALBUMIN 2.3. HE IS CURRENTLY RECEIVING NORMAL SALINE AT 125ML/HR, ZYVOX 600MG PO Q12H, ZOSYN 3.375 IV TID, LANTUS 48 UNITS SC HS, HUMULIN R COVERAGE TO 40 UNITS SC BID AND 15 UNITS SC AT 1200, ZOFRAN 4MG IV Q8H PRN, AND HIS HOME MEDICATIONS WERE RESUMED. , FOOT SURGEON, SAW HIM YESTERDAY AND PLANS TO TAKE HIM BACK TO THE OR TOMORROW FOR FURTHER REPAIR. OTHERWISE, WE WILL CONTINUE WITH CURRENT PLAN OF CARE. WE PLAN TO FOLLOW UP WITH AM LABS AND CONTINUE TO MONITOR. TIME SPENT ON CLINICAL ASSESSMENT, REVIEWING LABS AND IMAGING, DECISION MAKING, AND DOCUMENTATION GREATER THAN 45 MINUTES. - Past Medical Family Social History Past Med/Fam/Surg Hx: No changes since H&P Allergies: Allergies codeine Adverse Reaction (Verified 01/28/19 16:32) RASH - Review of Systems ROS: No change since H&P - Vital Signs and I&O's Vital Signs: Temperature 98.3 F Pulse Rate [Left] 90 Pulse Rate 90 Respiratory Rate 20 Blood Pressure [Left Arm] 132/66 Blood Pressure 138/73 O2 Sat by Pulse Oximetry 92 Intake and Output: Intake & Output 08/24/21 08/25/21 08/26/21 08/27/21 11:59 11:59 11:59 11:59 Intake Total 2141 / 2141 3654 / 3654 1485 / 1485 Output Total 1434 / 1434 1060 / 1060 1053 / 1053 Balance 707 / 707 2594 / 2594 432 / 432 - Physical Exam Oriented: Normal, Time, Person Eyes: Normal Ear: Normal Nose: Normal Throat: Normal Respiratory: Generalized, Diminished Cardiovascular: Other (Pulses are intact b/l. Cap fill immediate to the b/l digits.) : Normal Auscultation: Bowel Sounds: Normal Palpation: Normal Tenderness: Normal Skin: Wound (Right foot plantar wound with no purulence. No Malodor. No erythema. No fluctuance. Skin edges appear viable.) Musculoskeletal: Sensory Deficit (Sensation diminshed to the LE b/l.) Psychiatric: Normal Mood Description: Apathetic Affect: Quiet Speech Pattern: Clear - Laboratory and Diagnostics Result Diagrams: 08/27/21 04:47 08/27/21 04:47 Labs: 08/24/21 18:20 Foot - Right Wound Gram Stain - Final 08/24/21 18:20 Foot - Right Wound Culture - Preliminary Staphylococcus Aureus 08/25/21 11:46 Foot - Right Wound Gram Stain - Final 08/25/21 11:46 Foot - Right Wound Culture - Preliminary 08/24/21 20:10 Blood Blood Culture - Preliminary 08/24/21 20:00 Blood Blood Culture - Final Staphylococcus Aureus Laboratory WBC 5.2 X10^3/uL (3.6-10.0) 08/27/21 04:47 RBC 3.29 X10^6/uL (4.7-6.0) L 08/27/21 04:47 Hgb 8.9 g/dL (13.5-18.0) L 08/27/21 04:47 Hct 25.8 % (42.0-54.0) L 08/27/21 04:47 MCV 78.6 fL (80.0-100.0) L 08/27/21 04:47 MCH 27.0 pg (27.0-34.0) 08/27/21 04:47 MCHC 34.4 g/dL (33.0-35.0) 08/27/21 04:47 RDW 16.2 % (11.6-16.5) 08/27/21 04:47 Plt Count 236 X10^3/uL (150.0-450.0) 08/27/21 04:47 MPV 7.2 fL (7.4-11.0) L 08/27/21 04:47 Neut % (Auto) 71.6 % (42.0-75.0) 08/27/21 04:47 Lymph % (Auto) 15.4 % (21.0-51.0) L 08/27/21 04:47 [place]igg % (Auto) 12.1 % (0.0-13.0) 08/27/21 04:47 Eos % (Auto) 0.5 % (0.9-2.9) L 08/27/21 04:47 Baso % (Auto) 0.4 % (0.2-1.0) 08/27/21 04:47 Neut # (Auto) 3.7 x10^3/uL (2.2-4.8) 08/27/21 04:47 Lymph # (Auto) 0.8 X10^3/uL (1.3-2.9) L 08/27/21 04:47 [place]igg # (Auto) 0.6 x10^3/uL (0.3-0.8) 08/27/21 04:47 Eos # (Auto) 0.0 x10^3/uL (0.0-0.2) 08/27/21 04:47 Baso # (Auto) 0.0 X10^3/uL (0.0-0.1) 08/27/21 04:47 Absolute Nucleated RBC 0.3 /100WBC 08/27/21 04:47 Sodium 136 mmol/L (136-145) 08/27/21 04:47 Corrected Sodium 138 mmol/L (136-145) 08/27/21 04:47 Potassium 3.8 mmol/L (3.5-5.1) 03/08/22 04:47 Chloride 102 mmol/L (98-107) 08/27/21 04:47 Carbon Dioxide 22.4 mmol/L (21-32) 08/27/21 04:47 BUN 32 mg/dL (7-18) H 08/27/21 04:47 Creatinine 1.53 mg/dL (0.70-1.30) H 08/27/21 04:47 Est GFR (MDRD) Af Amer 60 (>60) 08/27/21 04:47 Est GFR (MDRD) Non-Af 49 (>60) L 08/27/21 04:47 Glucose 186 mg/dL (65-99) H 08/27/21 04:47 POC Glucose (mg/dL) 187 mg/dL (65-99) H 08/27/21 05:37 Calcium 7.7 mg/dL (8.5-10.1) L 08/27/21 04:47 Corrected Calcium 9.1 mg/dL (8.5-10.1) 08/27/21 04:47 Magnesium 1.3 mg/dL (1.7-2.9) L 08/25/21 04:51 Total Bilirubin 0.70 mg/dL (0.2-1.0) 08/27/21 04:47 Direct Bilirubin 0.40 mg/dL (0-0.2) H 08/24/21 14:00 AST 61 Units/L (15-37) H 08/27/21 04:47 ALT 70 Units/L (12-78) 08/27/21 04:47 Alkaline Phosphatase 133 Units/L (46-116) H 08/27/21 04:47 Creatine Kinase 144 Units/L (39-308) 08/24/21 14:00 CK-MB (CK-2) < 1.0 ng/mL (0-4.0) 08/24/21 14:00 CK/CKMB % Calc 0.7 % (<4) 08/24/21 14:00 Troponin I High Sens 23.4 ng/L (4.0-60.0) 08/24/21 14:00 Total Protein 5.9 g/dL (6.4-8.2) L 08/27/21 04:47 Albumin 2.2 g/dL (3.4-5.0) L 08/27/21 04:47 Globulin 3.7 g/dL (2.5-4.5) 08/27/21 04:47 Albumin/Globulin Ratio 0.6 Ratio (1.1-2.1) L 08/27/21 04:47 TSH 3rd Generation 1.547 uIU/mL (0.358-3.74) 08/24/21 14:00 SARS CoV-2 RNA Rapid ANIBAL Negative (NEGATIVE) 08/24/21 15:05 - Plan (1) Cellulitis of right foot Status: Acute Plan: WOUND VAC, IV FLUIDS, ANTIBIOTICS, WOUND CARE, NAUSEA CONTROL, BLOOD GLUCOSE CONTROL AND MONITORING (2) Abscess of right foot Status: Acute (3) Osteomyelitis Status: Suspected Qualifiers: Osteomyelitis type: unspecified type Osteomyelitis location: foot Laterality: right Qualified Code(s): M86.9 - Osteomyelitis, unspecified (4) Dehydration Status: Acute (5) Hyponatremia Status: Acute (6) Hypertension Status: Chronic Qualifiers: Hypertension type: primary hypertension Qualified Code(s): I10 - Essential (primary) hypertension (7) Diabetic neuropathy Status: Chronic Qualifiers: Diabetes mellitus type: type 2 Diabetes mellitus complication detail: with other neurological complication Qualified Code(s): E11.49 - Type 2 diabetes mellitus with other diabetic neurological complication (8) Diabetes mellitus Status: Chronic Qualifiers: Diabetes mellitus type: type 2 Diabetes mellitus terminal gauger insulin use: with terminal gauger use Diabetes mellitus complication status: with hyperglycemia Qualified Code(s): E11.65 - Type 2 diabetes mellitus with hyperglycemia; Z79.4 - detention (current) use of insulin
[2021-08-27] MEDS: ZOFRAN INJ 4 MG VIAL IVP PRN ×2 (11:36→22:08)
--- NOTE | 2021-08-27 14:11 | MRI ---
HISTORYCELLULITS, STAPH, ABCESS, RT FOOT PAIN, WOUND VACSTUDYMRI right EXT LOWER NON-JOINT W W/O IV contrastCOMPARISONCT 08/24/2021TECHNIQUEMRI of the right footwithout and with IV contrast is performed using standard sequences in multiple planes. 20 cc MultiHance IV contrast.FINDINGSDiffuse edema and enhancement is seen in the deep soft tissues of the ankle and foot. There are is a probable abscess in the posterior aspect of the lower leg that is located lateral to the flexor hallucis longus tendon. It measures 5.2 x 2.5 x 2.5 cm. There is prominent fluid distention of the flexor hallucis longus and flexor digitorum longus tendon sheaths in the plantar aspect of the foot which may be due to spread of infection given the rim enhancement.Infection appears to extend into the sinus tarsi and subtalar joint. There is nonenhancing fluid in the subtalar joint that extends adjacent to the cuboid bone and into a sinus tract to the plantar skin surface. Osteomyelitis is seen in the cuboid bone. There is probable osteomyelitis in the anterior aspect of the calcaneus and in medial aspect of the talus. There is a probable abscess superficial to the medial aspect navicular bone measuring 2.4 x 0.8 cm.There appears to be posterior dislocation or subluxation of the navicular bone with respect to the talus. Posterior myelitis is suspected in the navicular bone. Probable osteomyelitis is present in the cuneiforms, also. Osteomyelitis is suspected in the proximal shaft of the 2nd metatarsal and there is probable osteomyelitis through the majority of the 5th metatarsal, sparing the distal head. Associated fractures are seen in the calcaneus and navicular bone.IMPRESSIONExtensive cellulitis is seen with spread of infection along tendon sheaths and into the subtalar joint space. Probable abscess is seen in the posterior aspect of the lower leg and other abscess is suspected in the soft tissues superficial to the navicular bone.There is osteomyelitis in the calcaneus, talus, navicular, cuboid, and cuneiform bones. There is osteomyelitis in the 2nd and 5th metatarsals.There is a sinus tract extending from the region of the cuboid bone and subtalar joint to the plantar skin surface.Electronically signed by: Robert Philip (Aug 27, 2021 14:10:37)
[2021-08-27] MEDS: SNACK - Diabetic Appropriate PO SCH (20:41)
[2021-08-27] MEDS: CRESTOR TAB 10 MG PO SCH (20:43)
[2021-08-27] MEDS: FLOMAX PO SCH (20:43)
[2021-08-27] MEDS: NEURONTIN CAP 100 MG PO SCH (20:44)
[2021-08-27] MEDS: MELATONIN PO PRN (21:00)
[2021-08-27] MEDS: LANTUS SC SCH (21:13)
[2021-08-27] MEDS: TYLENOL 325 MG TAB PO PRN (23:08)
--- NOTE | 2021-08-28 00:28 | NOTE.SOAP ---
Soap Note Note for Day of Date of Exam: 08/27/21 Subjective Data Subjective Data: Status post incision and drainage of abscess of the right plantar foot. Patient being considered for possible external fixator and closure of wound by Podiatry service Objective Data Temperature: 98.3 F Pulse Rate: 90 Respiratory Rate: 20 Blood Pressure: 133/61 O2 Sat by Pulse Oximetry: 95 Objective Data: Foot with out redness and the wound vacuum is in place. MRI consistent with significant osteomyelitis of the right foot involving the calcaneus, navicular and cuboid as well as the 4th and 5th metatarsals. Cultures growing methicillin sensitive staphylococcus sensitive to ZYVOX and Zosyn he is on Assessment Assessment: Abscess/osteomyelitis right foot. Plan Plan: Podiatry may take him to the OR tomorrow. Continue Zyvox and Zosyn
[2021-08-28] MEDS: NS 1,000 ML IV 1,000 ML IV SCH ×3 (01:17→17:01)
[2021-08-28] MEDS: ZOSYN VIAL 3.375 GRAMS 3.375 G in NS 100 ML IV 100 ML IV SCH ×3 (05:55→21:24)
[2021-08-28] MEDS: TYLENOL 325 MG TAB PO PRN (05:56)
[2021-08-28 06:50] LABS: BASOPHILS # (AUTO) 0.1 X10^3/uL (0.0-0.1); BASOPHILS % (AUTO) 0.9 % (0.2-1.0); EOSINOPHILS # (AUTO) 0.2 x10^3/uL (0.0-0.2); EOSINOPHILS % (AUTO) 2.9 % (0.9-2.9); HEMATOCRIT 24.2 % (42.0-54.0); HEMOGLOBIN 8.4 g/dL (13.5-18.0); LYMPHOCYTES # (AUTO) 1.1 X10^3/uL (1.3-2.9); LYMPHOCYTES % (AUTO) 20.2 % (21.0-51.0); MEAN CORPUSCULAR HEMOGLOBIN 27.3 pg (27.0-34.0); MEAN CORPUSCULAR HGB CONC 34.8 g/dL (33.0-35.0); MEAN CORPUSCULAR VOLUME 78.5 fL (80.0-100.0); MEAN PLATELET VOLUME 7.3 fL (7.4-11.0); MONOCYTES # (AUTO) 0.6 x10^3/uL (0.3-0.8); MONOCYTES % (AUTO) 10.7 % (0.0-13.0); NEUTROPHILS # (AUTO) 3.5 x10^3/uL (2.2-4.8); NEUTROPHILS % (AUTO) 65.3 % (42.0-75.0); RED BLOOD COUNT 3.08 X10^6/uL (4.7-6.0); RED CELL DISTRIBUTION WIDTH 16.1 % (11.6-16.5); WHITE BLOOD COUNT 5.4 X10^3/uL (3.6-10.0)
[2021-08-28 07:05] LABS: ALANINE AMINOTRANSFERASE 77 Units/L (12-78); ALBUMIN 2.1 g/dL (3.4-5.0); ALKALINE PHOSPHATASE 181 Units/L (46-116); ASPARTATE AMINO TRANSFERASE 50 Units/L (15-37); BLOOD UREA NITROGEN 20 mg/dL (7-18); CARBON DIOXIDE 22.6 mmol/L (21-32); CHLORIDE 103 mmol/L (98-107); COR CA(FOR HYPOALB) 9.5 mg/dL (8.5-10.1); COR NA(FOR HYPERGLY) 139 mmol/L (136-145); CREATININE 1.32 mg/dL (0.70-1.30); SODIUM 138 mmol/L (136-145); TOTAL PROTEIN 6.2 g/dL (6.4-8.2); eGFR NON BLACK RACES 58 (>60)
[2021-08-28] MEDS ORDERED: BETADINE SOLN ONE (08:18)
[2021-08-28] MEDS ORDERED: MARCAINE 0.25% INJ ONE (08:18)
[2021-08-28] MEDS ORDERED: VERSED ONE ×2 (09:34→10:15)
[2021-08-28] MEDS ORDERED: VANCOMYCIN HCL ONE (09:37)
[2021-08-28] MEDS ORDERED: TOBRAMYCIN SULFATE ONE (09:38)
[2021-08-28] MEDS ORDERED: DIPRIVAN VIAL 20 ML ONE (10:15)
[2021-08-28] MEDS ORDERED: FENTANYL VIAL INJ 100 mcg ONE (10:15)
[2021-08-28] MEDS ORDERED: XYLOCAINE 2 % (PLAIN) ONE (10:17)
--- NOTE | 2021-08-28 10:19 | RAD ---
HISTORYPICC placementSTUDYChest AP portableCOMPARISONNoneFINDINGSThere is a right-sided PICC line with its tip in the expected position of superior vena cava. Heart size is normal tavares are normal lung velez are clear. No pleural effusion or pneumothorax is identified. Bony thorax is unremarkable.IMPRESSIONRight PICC tip superior vena cavaLungs clearElectronically signed by: ESCOBAR HOLLOWAY (Aug 28, 2021 10:18:04)
[2021-08-28] MEDS ORDERED: NS 1,000 ML IV 1,000 ML ONE (10:22)
--- NOTE | 2021-08-28 10:32 | DR.UPDATE ---
H&P Update History and Physical Update: History and Physical reviewed and patient examined. Changes noted: NO Yes with the following:will place picc kayy roll over press operator abx H&P Reviewed: Yes Patient was examined?: Yes Procedures (ALL) - Central Line Placement PCM.CLCO: written consent Time out performed: Yes Patient placed pm monitor/pulse ox: Yes prep: mask, gown, gloves, other Centrial line prep: chlorhexidine scrub, sterile drapes applied Local anesthsia used: lidocane 1% Ultrasound used for placement: Yes (right basilic id'd via u/s) Central line lumen ininserted: double (5.5fr arrowpicc to 45cm. 5cm exposed) Post procedure: good blood return, all ports aspirated, flushed,capped, sterile dressing applied Post procedure xray: tip oc catheter in good position (tip in SVC per cxr), no pneumothorax seen Patient tolerated procedure: Yes Complications: none
[2021-08-28] MEDS: LOPID PO SCH ×2 (10:33→20:41)
[2021-08-28] MEDS: MAG-OX TAB PO SCH (10:34)
[2021-08-28] MEDS: VITAMIN B-12 PO SCH (10:34)
[2021-08-28] MEDS: VSL#3 PO SCH (10:34)
[2021-08-28] MEDS: PEPCID TAB 40 MG PO SCH ×2 (10:34→20:42)
[2021-08-28] MEDS: REGLAN TAB 10 MG PO SCH ×4 (10:34→20:42)
[2021-08-28] MEDS: ZINC SULFATE PO SCH (10:35)
[2021-08-28] MEDS: VITAMIN D3 125 mcg (5,000 UNITS) PO SCH (10:35)
[2021-08-28] MEDS: PROTONIX TAB 40 MG PO SCH ×2 (10:35→20:42)
[2021-08-28] MEDS: SAXAGLIPTIN 5 MG PO SCH (10:35)
[2021-08-28] MEDS: COZAAR PO SCH (12:10)
[2021-08-28] MEDS: TOPROL XL PO SCH (12:11)
[2021-08-28] MEDS: ZYVOX TAB 600 MG PO SCH ×2 (12:11→20:42)
[2021-08-28] MEDS: SYNTHROID 75 mcg TAB PO SCH (12:11)
[2021-08-28] MEDS: NovoLIN R (or HumuLIN R) SUBCUT SCH ×3 (12:22→20:41)
--- NOTE | 2021-08-28 19:28 | NOTE.SOAP ---
Soap Note Note for Day of Date of Exam: 08/28/21 Subjective Data Subjective Data: Patient s/p delayed primary closure of the right foot wound with placement of antibiotic beads and splint placement. Objective Data Pulse Rate: 91 Respiratory Rate: 20 Blood Pressure: 172/77 O2 Sat by Pulse Oximetry: 95 Objective Data: Splint in place right foot Assessment Assessment: Abscess right foot , ? of right foot osteomyelitis Plan Plan: I will sign off at this time.
[2021-08-28] MEDS ORDERED: BUTT CREAM (COMPOUND) ONE (19:31)
[2021-08-28] MEDS ORDERED: BUTT CREAM (COMPOUND) TOP PRN (19:38)
[2021-08-28] MEDS: SNACK - Diabetic Appropriate PO SCH (20:40)
[2021-08-28] MEDS: FLOMAX PO SCH (20:40)
[2021-08-28] MEDS: CRESTOR TAB 10 MG PO SCH (20:40)
[2021-08-28] MEDS: NEURONTIN CAP 100 MG PO SCH (20:41)
[2021-08-28] MEDS: MELATONIN PO PRN (20:42)
[2021-08-28] MEDS: ZOFRAN INJ 4 MG VIAL IVP PRN (20:43)
[2021-08-28] MEDS: LANTUS SC SCH (21:23)
[2021-08-29] MEDS: TYLENOL 325 MG TAB PO PRN ×3 (01:05→21:36)
[2021-08-29] MEDS: NS 1,000 ML IV 1,000 ML IV SCH ×3 (02:06→16:10)
[2021-08-29] MEDS: ZOSYN VIAL 3.375 GRAMS 3.375 G in NS 100 ML IV 100 ML IV SCH ×3 (05:39→21:48)
[2021-08-29 05:52] LABS: BASOPHILS # (AUTO) 0.1 X10^3/uL (0.0-0.1); BASOPHILS % (AUTO) 0.9 % (0.2-1.0); EOSINOPHILS # (AUTO) 0.2 x10^3/uL (0.0-0.2); EOSINOPHILS % (AUTO) 2.6 % (0.9-2.9); HEMATOCRIT 23.7 % (42.0-54.0); HEMOGLOBIN 8.3 g/dL (13.5-18.0); LYMPHOCYTES # (AUTO) 1.3 X10^3/uL (1.3-2.9); LYMPHOCYTES % (AUTO) 20.9 % (21.0-51.0); MEAN CORPUSCULAR HEMOGLOBIN 27.3 pg (27.0-34.0); MEAN CORPUSCULAR HGB CONC 34.9 g/dL (33.0-35.0); MEAN CORPUSCULAR VOLUME 78.1 fL (80.0-100.0); MONOCYTES # (AUTO) 0.9 x10^3/uL (0.3-0.8); MONOCYTES % (AUTO) 14.3 % (0.0-13.0); NEUTROPHILS # (AUTO) 3.8 x10^3/uL (2.2-4.8); NEUTROPHILS % (AUTO) 61.3 % (42.0-75.0); RED BLOOD COUNT 3.04 X10^6/uL (4.7-6.0); RED CELL DISTRIBUTION WIDTH 15.5 % (11.6-16.5); WHITE BLOOD COUNT 6.3 X10^3/uL (3.6-10.0)
[2021-08-29 06:05] LABS: ALANINE AMINOTRANSFERASE 90 Units/L (12-78); ALKALINE PHOSPHATASE 244 Units/L (46-116); ASPARTATE AMINO TRANSFERASE 50 Units/L (15-37); BLOOD UREA NITROGEN 18 mg/dL (7-18); CALCIUM 7.8 mg/dL (8.5-10.1); CARBON DIOXIDE 24.4 mmol/L (21-32); CHLORIDE 102 mmol/L (98-107); COR CA(FOR HYPOALB) 9.4 mg/dL (8.5-10.1); COR NA(FOR HYPERGLY) 139 mmol/L (136-145); CREATININE 1.36 mg/dL (0.70-1.30); SODIUM 136 mmol/L (136-145); TOTAL PROTEIN 5.9 g/dL (6.4-8.2); eGFR NON BLACK RACES 56 (>60)
[2021-08-29 06:35] LABS: BAND NEUTROPHILS % 5 % (0-10); METAMYELOCYTES % 1; PLATELET MORPHOLOGY COMMENT NORMAL (NORMAL)
[2021-08-29] MEDS: COZAAR PO SCH (09:16)
[2021-08-29] MEDS: LOPID PO SCH ×2 (09:17→21:38)
[2021-08-29] MEDS: PROTONIX TAB 40 MG PO SCH ×2 (09:21→21:38)
[2021-08-29] MEDS: PEPCID TAB 40 MG PO SCH ×2 (09:21→21:34)
[2021-08-29] MEDS: REGLAN TAB 10 MG PO SCH ×4 (09:22→21:37)
[2021-08-29] MEDS: MAG-OX TAB PO SCH (09:41)
[2021-08-29] MEDS: SAXAGLIPTIN 5 MG PO SCH (09:42)
[2021-08-29] MEDS: SYNTHROID 75 mcg TAB PO SCH (09:43)
[2021-08-29] MEDS: TOPROL XL PO SCH (09:44)
[2021-08-29] MEDS: VITAMIN B-12 PO SCH (09:45)
[2021-08-29] MEDS: VITAMIN D3 125 mcg (5,000 UNITS) PO SCH (09:47)
[2021-08-29] MEDS: VSL#3 PO SCH (09:47)
[2021-08-29] MEDS: ZINC SULFATE PO SCH (09:48)
[2021-08-29] MEDS: ZYVOX TAB 600 MG PO SCH ×2 (09:50→21:33)
[2021-08-29] MEDS: NovoLIN R (or HumuLIN R) SUBCUT SCH ×3 (09:54→22:53)
--- NOTE | 2021-08-29 10:28 | PCM.PROG ---
Progress Note - Progress Note for Day of Date of Exam: 08/28/21 - Subjective Subjective: IS CURRENTLY BEING TREATED FOR AN ABSCESS TO THE RIGHT FOOT WITH OSTEOMYLITIS, CELLULITIS, AND DEHYDRATION DUE TO INTRACTABLE N/V/D. HE HAS A PMH OF DM II, HTN, HYPERLIPIDEMIA, RIGHT CHARCOT FOOT, DIABETIC NEUROPATHY, AND CHOLECYSTECTOMY. HE IS DAY 3 S/P I&D OF WOUND TO THE PLANTAR SURFACE OF THE LEFT FOOT. A WOUND VAC IS IN PLACE OVER THE WOUND. HE IS SCHEDULED TO GO BACK TO THE OR TODAY FOR FURTHER DEBRIDEMENT, BIOPSIES, AND REPAIR. TODAY, HE IS ALERT AND ORIENTED, LYING IN BED ON MORNING ROUNDS. HE DENIES NAUSEA OR VOMITING. HE DOES ADMIT TO GENERALIZED WEAKNESS. SPOUSE REPORTS CONFUSION AT TIMES. ON EXAMINATION, HEART IS REGULAR IN RATE AND RHYTHM. BILATERAL LUNGS NOTED WITH DIMINISHED LUNG SOUNDS THROUGHOUT. ABDOMEN IS ROUND, SOFT, AND NON-TENDER WITH NORMAL BOWEL SOUNDS NOTED IN ALL QUADRANTS. RIGHT FOOT WOUND PRESENT WITH WOUND VAC. DECREASED SENSATION TO LOWER EXTREMITIES NOTED. SOFT TISSUE SWELLING, ERYTHEMA, AND EDEMA NOTED TO RIGHT FOOT. VITALS THIS MORNING ARE: 98.0-88-18-95%-145/74. HIS OXYGEN SATURATIONS HAVE BEEN IN THE 90s ON 3-4 LPM. LABS WERE OBTAINED. ABNORMAL LAB VALUES INCLUDE THE FOLLOWING: RBC 3.08, HGB 8.4, HCT 24.2, BUN 20, CREATININE 1.32, GLUCOSE 129, CALCIUM 8.0, AST 50, ALK PHOS 181, TOTAL PROTEIN 6.2, ALBUMIN 2.1. BLOOD AND WOUND CULTURES ARE POSITIVE FOR GROWTH OF GROUP B STREP AGALACTIAE AND STAPHYLOCOCCUS AUREUS. BOTH ARE SENSITIVE TO THE ZOSYN AND ZYVOX. HE IS CURRENTLY RECEIVING NORMAL SALINE AT 125ML/HR, ZYVOX 600MG PO Q12H, ZOSYN 3.375 IV TID, LANTUS 48 UNITS SC HS, HUMULIN R COVERAGE TO 40 UNITS SC BID AND 15 UNITS SC AT 1200, ZOFRAN 4MG IV Q8H PRN, AND HIS HOME MEDICATIONS WERE RESUMED. WE WILL CONTINUE WITH CURRENT PLAN OF CARE TODAY AND DISCUSS FURTHER PLAN OF CARE WITH FOOT SURGEON. AT THIS TIME, WE SUSPECT THAT HE WILL NEED IV ANTIBIOTICS AFTER DISCHARGE FOR AT LEAST 6 WEEKS. WE PLAN TO FOLLOW UP WITH AM LABS AND CONTINUE TO MONITOR. TIME SPENT ON CLINICAL ASSESSMENT, REVIEWING LABS AND IMAGING, DECISION MAKING, AND DOCUMENTATION GREATER THAN 45 MINUTES. - Past Medical Family Social History Past Med/Fam/Surg Hx: No changes since H&P Allergies: Allergies codeine Adverse Reaction (Verified 01/28/19 16:32) RASH - Review of Systems ROS: No change since H&P - Vital Signs and I&O's Vital Signs: Temperature 98.4 F Pulse Rate [Left] 76 Pulse Rate 91 Respiratory Rate 20 Blood Pressure [Left Arm] 143/69 Blood Pressure 172/77 O2 Sat by Pulse Oximetry 92 Intake and Output: Intake & Output 08/26/21 08/27/21 08/28/21 08/29/21 11:59 11:59 11:59 11:59 Intake Total 3654 / 3654 1485 / 1485 2501 / 2501 2678 / 2678 Output Total 1060 / 1060 1053 / 1053 2314 / 2314 2705 / 2705 Balance 2594 / 2594 432 / 432 187 / 187 -27 / -27 - Physical Exam Oriented: Normal, Time, Person Eyes: Normal Ear: Normal Nose: Normal Throat: Normal Respiratory: Generalized, Diminished Cardiovascular: Other (Pulses are intact b/l. Cap fill immediate to the b/l digits.) : Normal Auscultation: Bowel Sounds: Normal Tenderness: Normal Skin: Wound (Right foot plantar wound with no purulence. No Malodor. No eryt clotilde. No fluctuance. Skin edges appear viable.) Musculoskeletal: Sensory Deficit (Sensation diminshed to the LE b/l.) Psychiatric: Normal Mood Description: Apathetic Affect: Quiet Speech Pattern: Clear - Laboratory and Diagnostics Result Diagrams: 08/29/21 05:30 08/29/21 05:30 Labs: 08/28/21 11:21 Foot - Right Wound Gram Stain - Final 08/28/21 11:21 Foot - Right Wound Culture - Preliminary 08/24/21 18:20 Foot - Right Wound Gram Stain - Final 08/24/21 18:20 Foot - Right Wound Culture - Final Strep Agalactiae - (Group B) Staphylococcus Aureus 08/25/21 11:46 Foot - Right Wound Gram Stain - Final 08/25/21 11:46 Foot - Right Wound Culture - Final Strep Agalactiae - (Group B) Staphylococcus Aureus 08/24/21 20:10 Blood Blood Culture - Final Strep Agalactiae - (Group B) 08/24/21 20:00 Blood Blood Culture - Final Staphylococcus Aureus Laboratory WBC 6.3 X10^3/uL (3.6-10.0) 08/29/21 05:30 RBC 3.04 X10^6/uL (4.7-6.0) L 08/29/21 05:30 Hgb 8.3 g/dL (13.5-18.0) L 08/29/21 05:30 Hct 23.7 % (42.0-54.0) L 08/29/21 05:30 MCV 78.1 fL (80.0-100.0) L 08/29/21 05:30 MCH 27.3 pg (27.0-34.0) 08/29/21 05:30 MCHC 34.9 g/dL (33.0-35.0) 08/29/21 05:30 RDW 15.5 % (11.6-16.5) 08/29/21 05:30 Plt Count 254 X10^3/uL (150.0-450.0) 08/29/21 05:30 Plt Count Comment Adequate (ADEQUATE) 08/29/21 05:30 MPV 7.0 fL (7.4-11.0) L 08/29/21 05:30 Neut % (Auto) 61.3 % (42.0-75.0) 08/29/21 05:30 Lymph % (Auto) 20.9 % (21.0-51.0) L 08/29/21 05:30 [place] % (Auto) 14.3 % (0.0-13.0) H 08/29/21 05:30 Eos % (Auto) 2.6 % (0.9-2.9) 08/29/21 05:30 Baso % (Auto) 0.9 % (0.2-1.0) 08/29/21 05:30 Neut # (Auto) 3.8 x10^3/uL (2.2-4.8) 08/29/21 05:30 Lymph # (Auto) 1.3 X10^3/uL (1.3-2.9) 08/29/21 05:30 [place] # (Auto) 0.9 x10^3/uL (0.3-0.8) H 08/29/21 05:30 Eos # (Auto) 0.2 x10^3/uL (0.0-0.2) 08/29/21 05:30 Baso # (Auto) 0.1 X10^3/uL (0.0-0.1) 08/29/21 05:30 Absolute Nucleated RBC 0.1 /100WBC 08/29/21 05:30 Total Counted 100 08/29/21 05:30 Neutrophils % (Manual) 55 % (39-76) 08/29/21 05:30 Band Neutrophils % 5 % (0-10) 08/29/21 05:30 Lymphocytes % (Manual) 26 % (13-43) 08/29/21 05:30 Monocytes % (Manual) 9 % (4-9) 08/29/21 05:30 Eosinophils % (Manual) 4 % (0-6) 08/29/21 05:30 Metamyelocytes % 1 08/29/21 05:30 Plt Morphology Comment Normal (NORMAL) 08/29/21 05:30 RBC Morphology Normal (NORMAL) 08/29/21 05:30 Sodium 136 mmol/L (136-145) 08/29/21 05:30 Corrected Sodium 139 mmol/L (136-145) 08/29/21 05:30 Potassium 3.7 mmol/L (3.5-5.1) 08/29/21 05:30 Chloride 102 mmol/L (98-107) 08/29/21 05:30 Carbon Dioxide 24.4 mmol/L (21-32) 08/29/21 05:30 BUN 18 mg/dL (7-18) 08/29/21 05:30 Creatinine 1.36 mg/dL (0.70-1.30) H 08/29/21 05:30 Est GFR (MDRD) Af Amer > 60 (>60) 08/29/21 05:30 Est GFR (MDRD) Non-Af 56 (>60) L 08/29/21 05:30 Glucose 207 mg/dL (65-99) H 08/29/21 05:30 POC Glucose (mg/dL) 213 mg/dL (65-99) H 08/29/21 09:41 Calcium 7.8 mg/dL (8.5-10.1) L 08/29/21 05:30 Corrected Calcium 9.4 mg/dL (8.5-10.1) 08/29/21 05:30 Magnesium 1.3 mg/dL (1.7-2.9) L 08/25/21 04:51 Total Bilirubin 0.80 mg/dL (0.2-1.0) 08/29/21 05:30 Direct Bilirubin 0.40 mg/dL (0-0.2) H 08/24/21 14:00 AST 50 Units/L (15-37) H 08/29/21 05:30 ALT 90 Units/L (12-78) H 08/29/21 05:30 Alkaline Phosphatase 244 Units/L (46-116) H 08/29/21 05:30 Creatine Kinase 144 Units/L (39-308) 08/24/21 14:00 CK-MB (CK-2) < 1.0 ng/mL (0-4.0) 08/24/21 14:00 CK/CKMB % Calc 0.7 % (<4) 08/24/21 14:00 Troponin I High Sens 23.4 ng/L (4.0-60.0) 08/24/21 14:00 C-Reactive Protein 104.40 mg/L (0-3.0) H 08/29/21 05:30 Total Protein 5.9 g/dL (6.4-8.2) L 08/29/21 05:30 Albumin 2.0 g/dL (3.4-5.0) L 08/29/21 05:30 Globulin 3.9 g/dL (2.5-4.5) 08/29/21 05:30 Albumin/Globulin Ratio 0.5 Ratio (1.1-2.1) L 08/29/21 05:30 TSH 3rd Generation 1.547 uIU/mL (0.358-3.74) 08/24/21 14:00 SARS CoV-2 RNA Rapid ANIBAL Negative (NEGATIVE) 08/24/21 15:05 Tissue Pathology To follow 08/28/21 11:15 - Plan (1) Osteomyelitis Status: Suspected Qualifiers: Osteomyelitis type: unspecified type Osteomyelitis location: foot Laterality: right Qualified Code(s): M86.9 - Osteomyelitis, unspecified (2) Cellulitis of right foot Status: Acute Plan: WOUND VAC, IV FLUIDS, ANTIBIOTICS, WOUND CARE, NAUSEA CONTROL, BLOOD GLUCOSE CONTROL AND MONITORING (3) Abscess of right foot Status: Acute (4) Sepsis Status: Acute Qualifiers: Sepsis type: methicillin susceptible Staphylococcus aureus Sepsis acute organ dysfunction status: unspecified Qualified Code(s): A41.01 - Sepsis due to Methicillin susceptible Staphylococcus aureus (5) Dehydration Status: Acute (6) Hyponatremia Status: Acute (7) Hypertension Status: Chronic Qualifiers: Hypertension type: primary hypertension Qualified Code(s): I10 - Essential (primary) hypertension (8) Diabetic neuropathy Status: Chronic Qualifiers: Diabetes mellitus type: type 2 Diabetes mellitus complication detail: with other neurological complication Qualified Code(s): E11.49 - Type 2 diabetes mellitus with other diabetic neurological complication (9) Diabetes mellitus Status: Chronic Qualifiers: Diabetes mellitus type: type 2 Diabetes mellitus half-way insulin use: with half-way use Diabetes mellitus complication status: with hyperglycemia Qualified Code(s): E11.65 - Type 2 diabetes mellitus with hyperglycemia; Z79.4 - long-term (current) use of insulin
--- NOTE | 2021-08-29 10:40 | PCM.PROG ---
Progress Note - Progress Note for Day of Date of Exam: 08/29/21 - Subjective Subjective: IS CURRENTLY BEING TREATED FOR OSTEOMYLITIS TO RIGHT FOOT, CELLULITIS, ABSCESS TO THE RIGHT FOOT, AND SEPSIS. HE HAS A PMH OF DM II, HTN, HYPERLIPIDEMIA, RIGHT CHARCOT FOOT, DIABETIC NEUROPATHY, AND CHOLECYSTECTOMY. HE IS DAY 1 S/P I&D AND WASHOUT TO BONE, DELAYED PRIMARY CLOSURE OF WOUND, DEEP BONE BIOPSY OF RIGHT FOOT, ANTIBIOTIC BEAD APPLICATION, POSTERIOR SPLINT APPLICATION BY . TODAY, HE IS ALERT AND ORIENTED, LYING IN BED ON MORNING ROUNDS. HE DENIES NAUSEA OR VOMITING. HE DOES ADMIT TO GENERALIZED WEAKNESS. HE DENIES PAIN UPON ROUNDS. ON EXAMINATION, HEART IS REGULAR IN RATE AND RHYTHM. BILATERAL LUNGS NOTED WITH DIMINISHED LUNG SOUNDS THROUGHOUT. ABDOMEN IS ROUND, SOFT, AND NON-TENDER WITH NORMAL BOWEL SOUNDS NOTED IN ALL QUADRANTS. RIGHT FOOT NOTED WITH POSTERIOR SPLINT. PICC LINE NOTED TO RIGHT UPPER ARM. VITALS THIS MORNING ARE: 98.4-76-20-92%-143/69. HE DID HAVE A TEMP OF 101.7 ABOUT 2100 LAST NIGHT. HIS OXYGEN SATURATIONS HAVE BEEN IN THE 90s ON 3-4 LPM. LABS WERE OBTAINED. ABNORMAL LAB VALUES INCLUDE THE FOLLOWING: RBC 3.04, HGB 8.3, HCT 23.7, SODIUM 135, BUN 30, CREATININE 1.66, GLUCOSE 227, CALCIUM 7.6, MAGNESIUM 1.3, TOTAL BILI 1.30, TOTAL PROTEIN 5.8, ALBUMIN 2.5. BLOOD AND WOUND CULTURES ARE POSITIVE FOR GROWTH OF GROUP B STREP AGALACTIAE AND STAPHYLOCOCCUS AUREUS. BOTH ARE SENSITIVE TO THE ZOSYN AND ZYVOX. HE IS CURRENTLY RECEIVING NORMAL SALINE AT 125ML/HR, ZYVOX 600MG PO Q12H, ZOSYN 3.375 IV TID, LANTUS 48 UNITS SC HS, HUMULIN R COVERAGE TO 40 UNITS SC BID AND 15 UNITS SC AT 1200, ZOFRAN 4MG IV Q8H PRN, AND HIS HOME MEDICATIONS WERE RESUMED. WHEN PATIENT IS READY FOR DISCHARGE, WE PLAN TO SEND HIM HOME ON IV ANTIBIOTICS FOR AT LEAST 6 WEEKS. WE WILL DECREASE HIS IV FLUIDS TO 75 ML/HR AND ADD ALBUMIN 25% IV DAILY. WE PLAN TO FOLLOW UP WITH AM LABS AND CONTINUE TO MONITOR. TIME SPENT ON CLINICAL ASSESSMENT, REVIEWING LABS AND IMAGING, DECISION MAKING, AND DOCUMENTATION GREATER THAN 45 MINUTES. - Past Medical Family Social History Past Med/Fam/Surg Hx: No changes since H&P Allergies: Allergies codeine Adverse Reaction (Verified 01/28/19 16:32) RASH - Review of Systems ROS: No change since H&P - Vital Signs and I&O's Vital Signs: Temperature 98.4 F Pulse Rate [Left] 76 Pulse Rate 91 Respiratory Rate 20 Blood Pressure [Left Arm] 143/69 Blood Pressure 172/77 O2 Sat by Pulse Oximetry 92 Intake and Output: Intake & Output 08/26/21 08/27/21 08/28/21 08/29/21 11:59 11:59 11:59 11:59 Intake Total 3654 / 3654 1485 / 1485 2501 / 2501 2678 / 2678 Output Total 1060 / 1060 1053 / 1053 2314 / 2314 2705 / 2705 Balance 2594 / 2594 432 / 432 187 / 187 -27 / -27 - Physical Exam Oriented: Normal, Time, Person Eyes: Normal Ear: Normal Nose: Normal Throat: Normal Respiratory: Generalized, Diminished Cardiovascular: Other (Pulses are intact b/l. Cap fill immediate to the b/l digits.) : Normal Auscultation: Bowel Sounds: Normal Palpation: Normal Tenderness: Normal Skin: Wound (RIGHT FOOT WOUND. POSTERIOR SPLINT IN PLACE ) Musculoskeletal: Sensory Deficit (Sensation diminshed to the LE b/l.) Psychiatric: Normal Mood Description: Apathetic Affect: Quiet Speech Pattern: Clear - Laboratory and Diagnostics Result Diagrams: 08/29/21 05:30 08/29/21 05:30 Labs: 08/28/21 11:21 Foot - Right Wound Gram Stain - Final 08/28/21 11:21 Foot - Right Wound Culture - Preliminary 08/24/21 18:20 Foot - Right Wound Gram Stain - Final 08/24/21 18:20 Foot - Right Wound Culture - Final Strep Agalactiae - (Group B) Staphylococcus Aureus 08/25/21 11:46 Foot - Right Wound Gram Stain - Final 08/25/21 11:46 Foot - Right Wound Culture - Final Strep Agalactiae - (Group B) Staphylococcus Aureus 08/24/21 20:10 Blood Blood Culture - Final Strep Agalactiae - (Group B) 08/24/21 20:00 Blood Blood Culture - Final Staphylococcus Aureus Laboratory WBC 6.3 X10^3/uL (3.6-10.0) 08/29/21 05:30 RBC 3.04 X10^6/uL (4.7-6.0) L 08/29/21 05:30 Hgb 8.3 g/dL (13.5-18.0) L 08/29/21 05:30 Hct 23.7 % (42.0-54.0) L 08/29/21 05:30 MCV 78.1 fL (80.0-100.0) L 08/29/21 05:30 MCH 27.3 pg (27.0-34.0) 08/29/21 05:30 MCHC 34.9 g/dL (33.0-35.0) 08/29/21 05:30 RDW 15.5 % (11.6-16.5) 08/29/21 05:30 Plt Count 254 X10^3/uL (150.0-450.0) 08/29/21 05:30 Plt Count Comment Adequate (ADEQUATE) 08/29/21 05:30 MPV 7.0 fL (7.4-11.0) L 08/29/21 05:30 Neut % (Auto) 61.3 % (42.0-75.0) 08/29/21 05:30 Lymph % (Auto) 20.9 % (21.0-51.0) L 08/29/21 05:30 [place] % (Auto) 14.3 % (0.0-13.0) H 08/29/21 05:30 Eos % (Auto) 2.6 % (0.9-2.9) 08/29/21 05:30 Baso % (Auto) 0.9 % (0.2-1.0) 08/29/21 05:30 Neut # (Auto) 3.8 x10^3/uL (2.2-4.8) 08/29/21 05:30 Lymph # (Auto) 1.3 X10^3/uL (1.3-2.9) 08/29/21 05:30 [place] # (Auto) 0.9 x10^3/uL (0.3-0.8) H 08/29/21 05:30 Eos # (Auto) 0.2 x10^3/uL (0.0-0.2) 08/29/21 05:30 Baso # (Auto) 0.1 X10^3/uL (0.0-0.1) 08/29/21 05:30 Absolute Nucleated RBC 0.1 /100WBC 08/29/21 05:30 Total Counted 100 08/29/21 05:30 Neutrophils % (Manual) 55 % (39-76) 08/29/21 05:30 Band Neutrophils % 5 % (0-10) 08/29/21 05:30 Lymphocytes % (Manual) 26 % (13-43) 08/29/21 05:30 Monocytes % (Manual) 9 % (4-9) 08/29/21 05:30 Eosinophils % (Manual) 4 % (0-6) 08/29/21 05:30 Metamyelocytes % 1 08/29/21 05:30 Plt Morphology Comment Normal (NORMAL) 08/29/21 05:30 RBC Morphology Normal (NORMAL) 08/29/21 05:30 Sodium 136 mmol/L (136-145) 08/29/21 05:30 Corrected Sodium 139 mmol/L (136-145) 08/29/21 05:30 Potassium 3.7 mmol/L (3.5-5.1) 08/29/21 05:30 Chloride 102 mmol/L (98-107) 08/29/21 05:30 Carbon Dioxide 24.4 mmol/L (21-32) 08/29/21 05:30 BUN 18 mg/dL (7-18) 08/29/21 05:30 Creatinine 1.36 mg/dL (0.70-1.30) H 08/29/21 05:30 Est GFR (MDRD) Af Amer > 60 (>60) 08/29/21 05:30 Est GFR (MDRD) Non-Af 56 (>60) L 08/29/21 05:30 Glucose 207 mg/dL (65-99) H 08/29/21 05:30 POC Glucose (mg/dL) 213 mg/dL (65-99) H 08/29/21 09:41 Calcium 7.8 mg/dL (8.5-10.1) L 08/29/21 05:30 Corrected Calcium 9.4 mg/dL (8.5-10.1) 08/29/21 05:30 Magnesium 1.3 mg/dL (1.7-2.9) L 08/25/21 04:51 Total Bilirubin 0.80 mg/dL (0.2-1.0) 08/29/21 05:30 Direct Bilirubin 0.40 mg/dL (0-0.2) H 08/24/21 14:00 AST 50 Units/L (15-37) H 08/29/21 05:30 ALT 90 Units/L (12-78) H 08/29/21 05:30 Alkaline Phosphatase 244 Units/L (46-116) H 08/29/21 05:30 Creatine Kinase 144 Units/L (39-308) 08/24/21 14:00 CK-MB (CK-2) < 1.0 ng/mL (0-4.0) 08/24/21 14:00 CK/CKMB % Calc 0.7 % (<4) 08/24/21 14:00 Troponin I High Sens 23.4 ng/L (4.0-60.0) 08/24/21 14:00 C-Reactive Protein 104.40 mg/L (0-3.0) H 08/29/21 05:30 Total Protein 5.9 g/dL (6.4-8.2) L 08/29/21 05:30 Albumin 2.0 g/dL (3.4-5.0) L 08/29/21 05:30 Globulin 3.9 g/dL (2.5-4.5) 08/29/21 05:30 Albumin/Globulin Ratio 0.5 Ratio (1.1-2.1) L 08/29/21 05:30 TSH 3rd Generation 1.547 uIU/mL (0.358-3.74) 08/24/21 14:00 SARS CoV-2 RNA Rapid ANIBAL Negative (NEGATIVE) 08/24/21 15:05 Tissue Pathology To follow 08/28/21 11:15 - Plan (1) Osteomyelitis Status: Suspected Qualifiers: Osteomyelitis type: unspecified type Osteomyelitis location: foot Laterality: right Qualified Code(s): M86.9 - Osteomyelitis, unspecified (2) Cellulitis of right foot Status: Acute Plan: WOUND VAC, IV FLUIDS, ANTIBIOTICS, ALBUMIN, WOUND CARE, NAUSEA CONTROL, BLOOD GLUCOSE CONTROL AND MONITORING (3) Abscess of right foot Status: Acute (4) Sepsis Status: Acute Qualifiers: Sepsis type: methicillin susceptible Staphylococcus aureus Sepsis acute organ dysfunction status: unspecified Qualified Code(s): A41.01 - Sepsis due to Methicillin susceptible Staphylococcus aureus (5) Dehydration Status: Acute (6) Hypoalbuminemia Status: Acute (7) Hyponatremia Status: Resolved (8) Hypertension Status: Chronic Qualifiers: Hypertension type: primary hypertension Qualified Code(s): I10 - Essential (primary) hypertension (9) Diabetic neuropathy Status: Chronic Qualifiers: Diabetes mellitus type: type 2 Diabetes mellitus complication detail: with other neurological complication Qualified Code(s): E11.49 - Type 2 diabetes mellitus with other diabetic neurological complication (10) Diabetes mellitus Status: Chronic Qualifiers: Diabetes mellitus type: type 2 Diabetes mellitus ferry terminal supervisor insulin use: with ferry terminal supervisor use Diabetes mellitus complication status: with hyperglycemia Qualified Code(s): E11.65 - Type 2 diabetes mellitus with hyperglycemia; Z79.4 - shelter (current) use of insulin
[2021-08-29] MEDS: ALBUMIN HUMAN 25%- 100 ML 100 ML IV SCH (11:06)
--- NOTE | 2021-08-29 12:00 | PCM.PROG ---
Progress Note Progress Note for Day of Date of Exam: 08/29/21 Subjective Subjective: Mr. Lynch is a 61 yo male who is s/p right foot washout with application of antibiotic beads and delayed primary closure, DOS 08/28. He is doing well. No pain . Denies f/c/n/v/sob/calf pain. Past Medical Family Social History Past Med/Fam/Surg Hx: No changes since H&P Allergies: Allergies codeine Adverse Reaction (Verified 01/28/19 16:32) RASH Review of Systems ROS: No change since H&P Vital Signs and I&O's Vital Signs: Temperature 98.4 F Pulse Rate [Left] 76 Pulse Rate 91 Respiratory Rate 20 Blood Pressure [Left Arm] 143/69 Blood Pressure 172/77 O2 Sat by Pulse Oximetry 92 Intake and Output: Intake & Output 08/26/21 08/27/21 08/28/21 08/29/21 23:59 23:59 23:59 23:59 Intake Total 1794 / 1794 2354 / 2354 2551 / 2551 1184 / 1184 Output Total 1151 / 1151 1715 / 1715 2656 / 2656 750 / 750 Balance 643 / 643 639 / 639 -105 / -105 434 / 434 Physical Exam Oriented: Normal, Time and Person Eyes: Normal Ear: Normal Nose: Normal Throat: Normal Respiratory: Generalized and Diminished Cardiovascular: Other (Pulses are intact b/l. Cap fill immediate to the b/l digits. ) : Normal Auscultation: Bowel Sounds: Normal Tenderness: Normal Skin: Wound (RIGHT FOOT WOUND. POSTERIOR SPLINT IN PLACE ) Musculoskeletal: Sensory Deficit (Sensation diminshed to the LE b/l.) Psychiatric: Normal Mood Description: Apathetic Affect: Quiet Speech Pattern: Clear Laboratory and Diagnostics Result Diagrams: 08/29/21 05:30 08/29/21 05:30 Labs: 08/28/21 11:21 Foot - Right Wound Gram Stain - Final 08/28/21 11:21 Foot - Right Wound Culture - Preliminary 08/24/21 18:20 Foot - Right Wound Gram Stain - Final 08/24/21 18:20 Foot - Right Wound Culture - Final Strep Agalactiae - (Group B) Staphylococcus Aureus 08/25/21 11:46 Foot - Right Wound Gram Stain - Final 08/25/21 11:46 Foot - Right Wound Culture - Final Strep Agalactiae - (Group B) Staphylococcus Aureus 08/24/21 20:10 Blood Blood Culture - Final Strep Agalactiae - (Group B) 08/24/21 20:00 Blood Blood Culture - Final Staphylococcus Aureus Laboratory WBC 6.3 X10^3/uL (3.6-10.0) 08/29/21 05:30 RBC 3.04 X10^6/uL (4.7-6.0) L 08/29/21 05:30 Hgb 8.3 g/dL (13.5-18.0) L 08/29/21 05:30 Hct 23.7 % (42.0-54.0) L 08/29/21 05:30 MCV 78.1 fL (80.0-100.0) L 08/29/21 05:30 MCH 27.3 pg (27.0-34.0) 08/29/21 05:30 MCHC 34.9 g/dL (33.0-35.0) 08/29/21 05:30 RDW 15.5 % (11.6-16.5) 08/29/21 05:30 Plt Count 254 X10^3/uL (150.0-450.0) 08/29/21 05:30 Plt Count Comment Adequate (ADEQUATE) 08/29/21 05:30 MPV 7.0 fL (7.4-11.0) L 08/29/21 05:30 Neut % (Auto) 61.3 % (42.0-75.0) 08/29/21 05:30 Lymph % (Auto) 20.9 % (21.0-51.0) L 08/29/21 05:30 [place] % (Auto) 14.3 % (0.0-13.0) H 08/29/21 05:30 Eos % (Auto) 2.6 % (0.9-2.9) 08/29/21 05:30 Baso % (Auto) 0.9 % (0.2-1.0) 08/29/21 05:30 Neut # (Auto) 3.8 x10^3/uL (2.2-4.8) 08/29/21 05:30 Lymph # (Auto) 1.3 X10^3/uL (1.3-2.9) 08/29/21 05:30 [place] # (Auto) 0.9 x10^3/uL (0.3-0.8) H 08/29/21 05:30 Eos # (Auto) 0.2 x10^3/uL (0.0-0.2) 08/29/21 05:30 Baso # (Auto) 0.1 X10^3/uL (0.0-0.1) 08/29/21 05:30 Absolute Nucleated RBC 0.1 /100WBC 08/29/21 05:30 Total Counted 100 08/29/21 05:30 Neutrophils % (Manual) 55 % (39-76) 08/29/21 05:30 Band Neutrophils % 5 % (0-10) 08/29/21 05:30 Lymphocytes % (Manual) 26 % (13-43) 08/29/21 05:30 Monocytes % (Manual) 9 % (4-9) 08/29/21 05:30 Eosinophils % (Manual) 4 % (0-6) 08/29/21 05:30 Metamyelocytes % 1 08/29/21 05:30 Plt Morphology Comment Normal (NORMAL) 08/29/21 05:30 RBC Morphology Normal (NORMAL) 08/29/21 05:30 Sodium 136 mmol/L (136-145) 08/29/21 05:30 Corrected Sodium 139 mmol/L (136-145) 08/29/21 05:30 Potassium 3.7 mmol/L (3.5-5.1) 08/29/21 05:30 Chloride 102 mmol/L (98-107) 08/29/21 05:30 Carbon Dioxide 24.4 mmol/L (21-32) 08/29/21 05:30 BUN 18 mg/dL (7-18) 08/29/21 05:30 Creatinine 1.36 mg/dL (0.70-1.30) H 08/29/21 05:30 Est GFR (MDRD) Af Amer > 60 (>60) 08/29/21 05:30 Est GFR (MDRD) Non-Af 56 (>60) L 08/29/21 05:30 Glucose 207 mg/dL (65-99) H 08/29/21 05:30 POC Glucose (mg/dL) 204 mg/dL (65-99) H 08/29/21 11:23 Calcium 7.8 mg/dL (8.5-10.1) L 08/29/21 05:30 Corrected Calcium 9.4 mg/dL (8.5-10.1) 08/29/21 05:30 Magnesium 1.3 mg/dL (1.7-2.9) L 08/25/21 04:51 Total Bilirubin 0.80 mg/dL (0.2-1.0) 08/29/21 05:30 Direct Bilirubin 0.40 mg/dL (0-0.2) H 08/24/21 14:00 AST 50 Units/L (15-37) H 08/29/21 05:30 ALT 90 Units/L (12-78) H 08/29/21 05:30 Alkaline Phosphatase 244 Units/L (46-116) H 08/29/21 05:30 Creatine Kinase 144 Units/L (39-308) 08/24/21 14:00 CK-MB (CK-2) < 1.0 ng/mL (0-4.0) 08/24/21 14:00 CK/CKMB % Calc 0.7 % (<4) 08/24/21 14:00 Troponin I High Sens 23.4 ng/L (4.0-60.0) 08/24/21 14:00 C-Reactive Protein 104.40 mg/L (0-3.0) H 08/29/21 05:30 Total Protein 5.9 g/dL (6.4-8.2) L 08/29/21 05:30 Albumin 2.0 g/dL (3.4-5.0) L 08/29/21 05:30 Globulin 3.9 g/dL (2.5-4.5) 08/29/21 05:30 Albumin/Globulin Ratio 0.5 Ratio (1.1-2.1) L 08/29/21 05:30 TSH 3rd Generation 1.547 uIU/mL (0.358-3.74) 08/24/21 14:00 SARS CoV-2 RNA Rapid ANIBAL Negative (NEGATIVE) 08/24/21 15:05 Tissue Pathology To follow 08/28/21 11:15 Plan (1) Osteomyelitis: Status: Suspected Qualifiers: Osteomyelitis type: unspecified type Osteomyelitis location: foot Laterality: right Qualified Code(s): M86.9 - Osteomyelitis, unspecified Plan: 61 yo male with DM , Right charcot foot. He is s/p right foot t washout with placement of abx bead and dpc. He is with VSS and NAD. Plan: NWB on the right Keep dressing intact Elevate x2 pillows I think he would benefit from Rehab placement Pending intra op culture and bone biopsies. He is to follow up with Dr. Guevara in Clinic Rx's in the chart. Please do not hesitate to contact me with questions or concerns. Travis Faye DPM fellow [phone] (2) Cellulitis of right foot: Status: Acute Plan: WOUND VAC, IV FLUIDS, ANTIBIOTICS, ALBUMIN, WOUND CARE, NAUSEA CONTROL, BLOOD GLUCOSE CONTROL AND MONITORING (3) Abscess of right foot: Status: Acute (4) Sepsis: Status: Acute Qualifiers: Sepsis type: methicillin susceptible Staphylococcus aureus Sepsis acute organ dysfunction status: unspecified Qualified Code(s): A41.01 - Sepsis due to Methicillin susceptible Staphylococcus aureus (5) Dehydration: Status: Acute (6) Hypoalbuminemia: Status: Acute (7) Hyponatremia: Status: Resolved (8) Hypertension: Status: Chronic Qualifiers: Hypertension type: primary hypertension Qualified Code(s): I10 - Essential (primary) hypertension (9) Diabetic neuropathy: Status: Chronic Qualifiers: Diabetes mellitus type: type 2 Diabetes mellitus complication detail: with other neurological complication Qualified Code(s): E11.49 - Type 2 diabetes mellitus with other diabetic neurological complication (10) Diabetes mellitus: Status: Chronic Qualifiers: Diabetes mellitus complication status: with hyperglycemia Diabetes mellitus prison insulin use: with filler leaf cutter long use Diabetes mellitus type: type 2 Qualified Code(s): E11.65 - Type 2 diabetes mellitus with hyperglycemia; 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
[2021-08-29] MEDS: LOVENOX INJ 40 MG SYR SC SCH (14:55)
[2021-08-29] MEDS: SNACK - Diabetic Appropriate PO SCH (20:16)
[2021-08-29] MEDS: NEURONTIN CAP 100 MG PO SCH (21:32)
[2021-08-29] MEDS: CRESTOR TAB 10 MG PO SCH (21:35)
[2021-08-29] MEDS: MELATONIN PO PRN (21:38)
[2021-08-29] MEDS: FLOMAX PO SCH (21:39)
[2021-08-29] MEDS: ZOFRAN INJ 4 MG VIAL IVP PRN (21:40)
[2021-08-29] MEDS: LANTUS SC SCH (21:53)
[2021-08-30] MEDS: NS 1,000 ML IV 1,000 ML IV SCH ×3 (01:37→16:11)
[2021-08-30 05:00] LABS: ALANINE AMINOTRANSFERASE 99 Units/L (12-78); ALBUMIN 2.3 g/dL (3.4-5.0); ALKALINE PHOSPHATASE 275 Units/L (46-116); ASPARTATE AMINO TRANSFERASE 71 Units/L (15-37); BASOPHILS % (AUTO) 0.7 % (0.2-1.0); BLOOD UREA NITROGEN 18 mg/dL (7-18); CHLORIDE 101 mmol/L (98-107); COR CA(FOR HYPOALB) 9.4 mg/dL (8.5-10.1); COR NA(FOR HYPERGLY) 142 mmol/L (136-145); CREATININE 1.39 mg/dL (0.70-1.30); EOSINOPHILS # (AUTO) 0.2 x10^3/uL (0.0-0.2); HEMATOCRIT 23.8 % (42.0-54.0); HEMOGLOBIN 8.3 g/dL (13.5-18.0); LYMPHOCYTES # (AUTO) 1.3 X10^3/uL (1.3-2.9); LYMPHOCYTES % (AUTO) 24.7 % (21.0-51.0); MEAN CORPUSCULAR HEMOGLOBIN 27.1 pg (27.0-34.0); MEAN CORPUSCULAR HGB CONC 34.8 g/dL (33.0-35.0); MEAN CORPUSCULAR VOLUME 77.8 fL (80.0-100.0); MONOCYTES # (AUTO) 0.6 x10^3/uL (0.3-0.8); MONOCYTES % (AUTO) 11.7 % (0.0-13.0); NEUTROPHILS # (AUTO) 3.2 x10^3/uL (2.2-4.8); NEUTROPHILS % (AUTO) 58.9 % (42.0-75.0); RED BLOOD COUNT 3.06 X10^6/uL (4.7-6.0); RED CELL DISTRIBUTION WIDTH 16.1 % (11.6-16.5); SODIUM 139 mmol/L (136-145); TOTAL PROTEIN 6.2 g/dL (6.4-8.2); WHITE BLOOD COUNT 5.4 X10^3/uL (3.6-10.0); eGFR NON BLACK RACES 55 (>60)
[2021-08-30 05:27] LABS: BAND NEUTROPHILS % 3 % (0-10)
[2021-08-30 05:28] LABS: PLATELET MORPHOLOGY COMMENT NORMAL (NORMAL)
[2021-08-30] MEDS: ZOSYN VIAL 3.375 GRAMS 3.375 G in NS 100 ML IV 100 ML IV SCH ×3 (05:35→22:46)
[2021-08-30] MEDS: ALBUMIN HUMAN 25%- 100 ML 100 ML IV SCH (08:31)
[2021-08-30] MEDS: COZAAR PO SCH (08:32)
[2021-08-30] MEDS: PROTONIX TAB 40 MG PO SCH ×2 (08:32→22:45)
[2021-08-30] MEDS: LOPID PO SCH ×2 (08:32→22:46)
[2021-08-30] MEDS: MAG-OX TAB PO SCH (08:32)
[2021-08-30] MEDS: VITAMIN D3 125 mcg (5,000 UNITS) PO SCH (08:32)
[2021-08-30] MEDS: VSL#3 PO SCH (08:33)
[2021-08-30] MEDS: ZYVOX TAB 600 MG PO SCH ×2 (08:33→22:46)
[2021-08-30] MEDS: PEPCID TAB 40 MG PO SCH ×2 (08:33→22:47)
[2021-08-30] MEDS: REGLAN TAB 10 MG PO SCH ×4 (08:33→22:46)
[2021-08-30] MEDS: SYNTHROID 75 mcg TAB PO SCH (08:33)
[2021-08-30] MEDS: SAXAGLIPTIN 5 MG PO SCH (08:33)
[2021-08-30] MEDS: VITAMIN B-12 PO SCH (08:34)
[2021-08-30] MEDS: ZINC SULFATE PO SCH (08:34)
[2021-08-30] MEDS: TOPROL XL PO SCH (08:34)
[2021-08-30] MEDS: LOVENOX INJ 40 MG SYR SC SCH (09:26)
[2021-08-30] MEDS: NovoLIN R (or HumuLIN R) SUBCUT SCH ×3 (09:27→22:36)
--- NOTE | 2021-08-30 09:49 | PCM.PROG ---
Progress Note - Progress Note for Day of Date of Exam: 08/30/21 - Subjective Subjective: IS CURRENTLY BEING TREATED FOR OSTEOMYLITIS TO RIGHT FOOT, CELLULITIS, ABSCESS TO THE RIGHT FOOT, AND SEPSIS. HE HAS A PMH OF DM II, HTN, HYPERLIPIDEMIA, RIGHT CHARCOT FOOT, DIABETIC NEUROPATHY, AND CHOLECYSTECTOMY. HE IS DAY 2 S/P I&D AND WASHOUT TO BONE, DELAYED PRIMARY CLOSURE OF WOUND, DEEP BONE BIOPSY OF RIGHT FOOT, ANTIBIOTIC BEAD APPLICATION, POSTERIOR SPLINT APPLICATION BY . TODAY, HE IS ALERT AND ORIENTED, LYING IN BED ON MORNING ROUNDS. HE DENIES NAUSEA OR VOMITING. HE DOES ADMIT TO GENERALIZED WEAKNESS. HE DENIES PAIN UPON ROUNDS. ON EXAMINATION, HEART IS REGULAR IN RATE AND RHYTHM. BILATERAL LUNGS NOTED WITH DIMINISHED LUNG SOUNDS THROUGHOUT. ABDOMEN IS ROUND, SOFT, AND NON-TENDER WITH NORMAL BOWEL SOUNDS NOTED IN ALL QUADRANTS. RIGHT FOOT NOTED WITH POSTERIOR SPLINT. PICC LINE NOTED TO RIGHT UPPER ARM. VITALS THIS MORNING ARE: 99.5-77-20-93%-134/61. HE HAS BEEN AFEBRILE THROUGHOUT THE NIGHT. HIS OXYGEN SATURATIONS HAVE BEEN IN THE 90s ON OXYGEN AT 2 LPM. LABS WERE OBTAINED. ABNORMAL LAB VALUES INCLUDE THE FOLLOWING: RBC 3.06, HGB 8.3, HCT 23.8, POTASSIUM 3.4, CREATININE 1.39, GLUCOSE 244, CALCIUM 8.0, AST 71, ALT 99, ALK PHOS 275, CRP 71.40, TOTAL PROTEIN 6.2, ALBUMIN 2.3. BLOOD AND WOUND CULTURES ARE POSITIVE FOR GROWTH OF GROUP B STREP AGALACTIAE AND STAPHYLOCOCCUS AUREUS. BOTH ARE SENSITIVE TO THE ZOSYN AND ZYVOX. HE IS CURRENTLY RECEIVING NORMAL SALINE AT 75ML/HR, ALBUMIN 25% IV DAILY, LOVENOX 40MG SC DAILY, ZYVOX 600MG PO Q12H, ZOSYN 3.375 IV TID, LANTUS 48 UNITS SC HS, HUMULIN R COVERAGE TO 40 UNITS SC BID AND 15 UNITS SC AT 1200, ZOFRAN 4MG IV Q8H PRN, AND HIS HOME MEDICATIONS WERE RESUMED. PATIENT COULD BENEFIT FROM REHAB STAY FOR PHYSICAL THERAPY AND WOUND CARE. WHEN PATIENT IS READY FOR DISCHARGE, WE PLAN TO CONTINUE ON IV ANTIBIOTICS FOR AT LEAST 6 WEEKS. WE PLAN TO FOLLOW UP WITH AM LABS AND CONTINUE TO MONITOR. TIME SPENT ON CLINICAL ASSESSMENT, REVIEWING LABS AND IMAGING, DECISION MAKING, AND DOCUMENTATION GREATER THAN 45 MINUTES. - Past Medical Family Social History Past Med/Fam/Surg Hx: No changes since H&P Allergies: Allergies codeine Adverse Reaction (Verified 01/28/19 16:32) RASH - Review of Systems ROS: No change since H&P - Vital Signs and I&O's Vital Signs: Temperature 99.5 F Pulse Rate [Left] 77 Pulse Rate 91 Respiratory Rate 20 Blood Pressure [Left Arm] 134/61 Blood Pressure 172/77 O2 Sat by Pulse Oximetry 93 Intake and Output: Intake & Output 08/27/21 08/28/21 08/29/21 08/30/21 11:59 11:59 11:59 11:59 Intake Total 1485 / 1485 2501 / 2501 2678 / 2678 3089 / 3089 Output Total 1053 / 1053 2314 / 2314 2705 / 2705 850 / 850 Balance 432 / 432 187 / 187 -27 / -27 2238 / 223 - Physical Exam Oriented: Normal, Time, Person Eyes: Normal Ear: Normal Nose: Normal Throat: Normal Respiratory: Generalized, Diminished Cardiovascular: Other (Pulses are intact b/l. Cap fill immediate to the b/l digits.) : Normal Auscultation: Bowel Sounds: Normal Palpation: Normal Tenderness: Normal Skin: Wound (RIGHT FOOT WOUND. POSTERIOR SPLINT IN PLACE) Musculoskeletal: Sensory Deficit (Sensation diminshed to the LE b/l.) Psychiatric: Normal Mood Description: Apathetic Affect: Quiet Speech Pattern: Clear - Laboratory and Diagnostics Result Diagrams: 08/30/21 03:37 08/30/21 03:37 Labs: 08/28/21 11:21 Foot - Right Wound Gram Stain - Final 08/28/21 11:21 Foot - Right Wound Culture - Preliminary 08/24/21 18:20 Foot - Right Wound Gram Stain - Final 08/24/21 18:20 Foot - Right Wound Culture - Final Strep Agalactiae - (Group B) Staphylococcus Aureus 08/25/21 11:46 Foot - Right Wound Gram Stain - Final 08/25/21 11:46 Foot - Right Wound Culture - Final Strep Agalactiae - (Group B) Staphylococcus Aureus 08/24/21 20:10 Blood Blood Culture - Final Strep Agalactiae - (Group B) 08/24/21 20:00 Blood Blood Culture - Final Staphylococcus Aureus Laboratory WBC 5.4 X10^3/uL (3.6-10.0) 08/30/21 03:37 RBC 3.06 X10^6/uL (4.7-6.0) L 08/30/21 03:37 Hgb 8.3 g/dL (13.5-18.0) L 08/30/21 03:37 Hct 23.8 % (42.0-54.0) L 08/30/21 03:37 MCV 77.8 fL (80.0-100.0) L 08/30/21 03:37 MCH 27.1 pg (27.0-34.0) 08/30/21 03:37 MCHC 34.8 g/dL (33.0-35.0) 08/30/21 03:37 RDW 16.1 % (11.6-16.5) 08/30/21 03:37 Plt Count 321 X10^3/uL (150.0-450.0) 08/30/21 03:37 Plt Count Comment Adequate (ADEQUATE) 08/30/21 03:37 MPV 7.0 fL (7.4-11.0) L 08/30/21 03:37 Neut % (Auto) 58.9 % (42.0-75.0) 08/30/21 03:37 Lymph % (Auto) 24.7 % (21.0-51.0) 08/30/21 03:37 [place] % (Auto) 11.7 % (0.0-13.0) 08/30/21 03:37 Eos % (Auto) 4.0 % (0.9-2.9) H 08/30/21 03:37 Baso % (Auto) 0.7 % (0.2-1.0) 08/30/21 03:37 Neut # (Auto) 3.2 x10^3/uL (2.2-4.8) 08/30/21 03:37 Lymph # (Auto) 1.3 X10^3/uL (1.3-2.9) 08/30/21 03:37 [place] # (Auto) 0.6 x10^3/uL (0.3-0.8) 08/30/21 03:37 Eos # (Auto) 0.2 x10^3/uL (0.0-0.2) 08/30/21 03:37 Baso # (Auto) 0.0 X10^3/uL (0.0-0.1) 08/30/21 03:37 Absolute Nucleated RBC 0.5 /100WBC 08/30/21 03:37 Total Counted 100 08/30/21 03:37 Neutrophils % (Manual) 58 % (39-76) 08/30/21 03:37 Band Neutrophils % 3 % (0-10) 08/30/21 03:37 Lymphocytes % (Manual) 28 % (13-43) 08/30/21 03:37 Monocytes % (Manual) 8 % (4-9) 08/30/21 03:37 Eosinophils % (Manual) 3 % (0-6) 08/30/21 03:37 Metamyelocytes % 1 08/29/21 05:30 Nucleated RBCs 2 08/30/21 03:37 Plt Morphology Comment Normal (NORMAL) 08/30/21 03:37 RBC Morphology Normal (NORMAL) 08/30/21 03:37 Sodium 139 mmol/L (136-145) 08/30/21 03:37 Corrected Sodium 142 mmol/L (136-145) 08/30/21 03:37 Potassium 3.4 mmol/L (3.5-5.1) L 08/30/21 03:37 Chloride 101 mmol/L (98-107) 08/30/21 03:37 Carbon Dioxide 26.0 mmol/L (21-32) 08/30/21 03:37 BUN 18 mg/dL (7-18) 08/30/21 03:37 Creatinine 1.39 mg/dL (0.70-1.30) H 08/30/21 03:37 Est GFR (MDRD) Af Amer > 60 (>60) 08/30/21 03:37 Est GFR (MDRD) Non-Af 55 (>60) L 08/30/21 03:37 Glucose 244 mg/dL (65-99) H 08/30/21 03:37 POC Glucose (mg/dL) 175 mg/dL (65-99) H 08/29/21 19:30 Calcium 8.0 mg/dL (8.5-10.1) L 08/30/21 03:37 Corrected Calcium 9.4 mg/dL (8.5-10.1) 08/30/21 03:37 Magnesium 1.8 mg/dL (1.7-2.9) 08/30/21 03:37 Total Bilirubin 0.80 mg/dL (0.2-1.0) 08/30/21 03:37 Direct Bilirubin 0.40 mg/dL (0-0.2) H 08/24/21 14:00 AST 71 Units/L (15-37) H 08/30/21 03:37 ALT 99 Units/L (12-78) H 08/30/21 03:37 Alkaline Phosphatase 275 Units/L (46-116) H 08/30/21 03:37 Creatine Kinase 144 Units/L (39-308) 08/24/21 14:00 CK-MB (CK-2) < 1.0 ng/mL (0-4.0) 08/24/21 14:00 CK/CKMB % Calc 0.7 % (<4) 08/24/21 14:00 Troponin I High Sens 23.4 ng/L (4.0-60.0) 08/24/21 14:00 C-Reactive Protein 71.40 mg/L (0-3.0) H 08/30/21 03:37 Total Protein 6.2 g/dL (6.4-8.2) L 08/30/21 03:37 Albumin 2.3 g/dL (3.4-5.0) L 08/30/21 03:37 Globulin 3.9 g/dL (2.5-4.5) 08/30/21 03:37 Albumin/Globulin Ratio 0.6 Ratio (1.1-2.1) L 08/30/21 03:37 TSH 3rd Generation 1.547 uIU/mL (0.358-3.74) 08/24/21 14:00 SARS CoV-2 RNA Rapid ANIBAL Negative (NEGATIVE) 08/24/21 15:05 Tissue Pathology To follow 08/28/21 11:15 - Plan (1) Osteomyelitis Status: Suspected Qualifiers: Osteomyelitis type: unspecified type Osteomyelitis location: foot Laterality: right Qualified Code(s): M86.9 - Osteomyelitis, unspecified (2) Cellulitis of right foot Status: Acute Plan: WOUND VAC, IV FLUIDS, ANTIBIOTICS, ALBUMIN, WOUND CARE, NAUSEA CONTROL, BLOOD GLUCOSE CONTROL AND MONITORING (3) Abscess of right foot Status: Acute (4) Sepsis Status: Acute Qualifiers: Sepsis type: methicillin susceptible Staphylococcus aureus Sepsis acute organ dysfunction status: unspecified Qualified Code(s): A41.01 - Sepsis due to Methicillin susceptible Staphylococcus aureus (5) Dehydration Status: Acute (6) Hypoalbuminemia Status: Acute (7) Hyponatremia Status: Resolved (8) Hypertension Status: Chronic Qualifiers: Hypertension type: primary hypertension Qualified Code(s): I10 - Essential (primary) hypertension (9) Diabetic neuropathy Status: Chronic Qualifiers: Diabetes mellitus type: type 2 Diabetes mellitus complication detail: with other neurological complication Qualified Code(s): E11.49 - Type 2 diabetes mellitus with other diabetic neurological complication (10) Diabetes mellitus Status: Chronic Qualifiers: Diabetes mellitus type: type 2 Diabetes mellitus group home insulin use: with group home use Diabetes mellitus complication status: with hyperglycemia Qualified Code(s): E11.65 - Type 2 diabetes mellitus with hyperglycemia; Z79.4 - snf (current) use of insulin
[2021-08-30] MEDS ORDERED: ALLEGRA ONE (11:09)
[2021-08-30] MEDS: ALLEGRA PO SCH (11:20)
[2021-08-30] MEDS: SNACK - Diabetic Appropriate PO SCH (20:20)
[2021-08-30] MEDS: ZOFRAN INJ 4 MG VIAL IVP PRN (20:22)
[2021-08-30] MEDS: LANTUS SC SCH (22:39)
[2021-08-30] MEDS: CRESTOR TAB 10 MG PO SCH (22:45)
[2021-08-30] MEDS: FLOMAX PO SCH (22:45)
[2021-08-30] MEDS: NEURONTIN CAP 100 MG PO SCH (22:45)
[2021-08-31] MEDS: TYLENOL 325 MG TAB PO PRN (02:48)
[2021-08-31] MEDS: NS 1,000 ML IV 1,000 ML IV SCH ×4 (02:48→16:46)
[2021-08-31] MEDS: ZOSYN VIAL 3.375 GRAMS 3.375 G in NS 100 ML IV 100 ML IV SCH ×3 (06:11→23:16)
--- NOTE | 2021-08-31 06:30 | RAD ---
HISTORYSOBSTUDYCHEST, 1 [id number]/09/2022FINDINGSLINES AND TUBES: Right PICC line projects over the cavoatrial junction.HEART/ PULMONARY VASCULATURE: UnchangedLUNGS/ PLEURA: Mild diffuse increased interstitial opacities with patchy airspace opacities now present within the right mid and lower lung. No pneumothoraxIMPRESSIONAirspace opacities in the right mid lower lung, may reflect asymmetric edema or pneumonia.Electronically signed by: Momo Scott (Aug 31, 2021 06:29:41)
[2021-08-31 06:49] LABS: BASOPHILS % (AUTO) 0.8 % (0.2-1.0); EOSINOPHILS # (AUTO) 0.2 x10^3/uL (0.0-0.2); EOSINOPHILS % (AUTO) 3.3 % (0.9-2.9); HEMOGLOBIN 8.1 g/dL (13.5-18.0); LYMPHOCYTES # (AUTO) 1.4 X10^3/uL (1.3-2.9); LYMPHOCYTES % (AUTO) 24.2 % (21.0-51.0); MEAN CORPUSCULAR HEMOGLOBIN 27.1 pg (27.0-34.0); MEAN CORPUSCULAR HGB CONC 35.3 g/dL (33.0-35.0); MEAN CORPUSCULAR VOLUME 76.8 fL (80.0-100.0); MEAN PLATELET VOLUME 6.7 fL (7.4-11.0); MONOCYTES # (AUTO) 0.6 x10^3/uL (0.3-0.8); MONOCYTES % (AUTO) 10.9 % (0.0-13.0); NEUTROPHILS # (AUTO) 3.5 x10^3/uL (2.2-4.8); NEUTROPHILS % (AUTO) 60.8 % (42.0-75.0); RED CELL DISTRIBUTION WIDTH 15.9 % (11.6-16.5); WHITE BLOOD COUNT 5.7 X10^3/uL (3.6-10.0)
[2021-08-31 06:57] LABS: ALANINE AMINOTRANSFERASE 76 Units/L (12-78); ALBUMIN 2.4 g/dL (3.4-5.0); ALKALINE PHOSPHATASE 263 Units/L (46-116); ASPARTATE AMINO TRANSFERASE 40 Units/L (15-37); BLOOD UREA NITROGEN 14 mg/dL (7-18); CALCIUM 8.2 mg/dL (8.5-10.1); CHLORIDE 102 mmol/L (98-107); COR CA(FOR HYPOALB) 9.5 mg/dL (8.5-10.1); COR NA(FOR HYPERGLY) 140 mmol/L (136-145); CREATININE 1.19 mg/dL (0.70-1.30); SODIUM 139 mmol/L (136-145); TOTAL PROTEIN 6.2 g/dL (6.4-8.2); eGFR NON BLACK RACES > 60 (>60)
[2021-08-31] MEDS ORDERED: ALLEGRA ONE (08:14)
[2021-08-31] MEDS: ALLEGRA PO SCH (08:58)
[2021-08-31] MEDS: PEPCID TAB 40 MG PO SCH ×2 (08:59→23:13)
[2021-08-31] MEDS: MAG-OX TAB PO SCH (08:59)
[2021-08-31] MEDS: REGLAN TAB 10 MG PO SCH ×4 (08:59→23:14)
[2021-08-31] MEDS: NovoLIN R (or HumuLIN R) SUBCUT SCH ×3 (08:59→23:13)
[2021-08-31] MEDS: COZAAR PO SCH (08:59)
[2021-08-31] MEDS: LOPID PO SCH ×2 (08:59→23:13)
[2021-08-31] MEDS: LOVENOX INJ 40 MG SYR SC SCH (09:00)
[2021-08-31] MEDS: SYNTHROID 75 mcg TAB PO SCH (09:00)
[2021-08-31] MEDS: VITAMIN D3 125 mcg (5,000 UNITS) PO SCH (09:00)
[2021-08-31] MEDS: TOPROL XL PO SCH (09:00)
[2021-08-31] MEDS: VITAMIN B-12 PO SCH (09:01)
[2021-08-31] MEDS: PROTONIX TAB 40 MG PO SCH ×2 (09:01→23:14)
[2021-08-31] MEDS: ALBUMIN HUMAN 25%- 100 ML 100 ML IV SCH (09:01)
[2021-08-31] MEDS: ZINC SULFATE PO SCH (09:01)
[2021-08-31] MEDS: ZYVOX TAB 600 MG PO SCH ×2 (09:01→23:14)
[2021-08-31] MEDS: SAXAGLIPTIN 5 MG PO SCH (09:01)
[2021-08-31] MEDS: VSL#3 PO SCH (09:01)
[2021-08-31] MEDS ORDERED: POTASSIUM CHL 60 MEQ/NS 0.45% 500 ML IV PRN (12:08)
[2021-08-31] MEDS ORDERED: K-RIDER 10 MEQ/NS 100 ML 10 MEQ/100 ML BAG IV PRN (12:08)
[2021-08-31] MEDS ORDERED: MICRO K EXTEN CAP 10 MEQ PO PRN (12:08)
[2021-08-31] MEDS ORDERED: POTASSIUM CHLORIDE LIQ 20 MEQ UDC PO PRN (12:08)
[2021-08-31] MEDS ORDERED: KLOR-CON PO PRN (12:08)
[2021-08-31] MEDS ORDERED: POTASSIUM CHL 40 MEQ/NS 0.45% 500 ML IV PRN (12:08)
[2021-08-31] MEDS: K-DUR TAB 20 MEQ PO PRN (17:24)
[2021-08-31] MEDS: SNACK - Diabetic Appropriate PO SCH (21:00)
[2021-08-31] MEDS: FLOMAX PO SCH (23:12)
[2021-08-31] MEDS: CRESTOR TAB 10 MG PO SCH (23:12)
[2021-08-31] MEDS: NEURONTIN CAP 100 MG PO SCH (23:13)
[2021-08-31] MEDS: LANTUS SC SCH (23:14)
[2021-09-01] MEDS: NS 1,000 ML IV 1,000 ML IV SCH ×3 (01:08→17:17)
[2021-09-01] MEDS: ZOSYN VIAL 3.375 GRAMS 3.375 G in NS 100 ML IV 100 ML IV SCH ×3 (06:06→21:17)
[2021-09-01 06:19] LABS: BASOPHILS % (AUTO) 0.5 % (0.2-1.0); EOSINOPHILS # (AUTO) 0.2 x10^3/uL (0.0-0.2); EOSINOPHILS % (AUTO) 3.2 % (0.9-2.9); HEMATOCRIT 23.9 % (42.0-54.0); HEMOGLOBIN 8.4 g/dL (13.5-18.0); LYMPHOCYTES # (AUTO) 1.4 X10^3/uL (1.3-2.9); LYMPHOCYTES % (AUTO) 22.3 % (21.0-51.0); MEAN CORPUSCULAR HEMOGLOBIN 27.1 pg (27.0-34.0); MEAN CORPUSCULAR HGB CONC 35.1 g/dL (33.0-35.0); MEAN CORPUSCULAR VOLUME 77.2 fL (80.0-100.0); MEAN PLATELET VOLUME 6.4 fL (7.4-11.0); MONOCYTES # (AUTO) 0.7 x10^3/uL (0.3-0.8); MONOCYTES % (AUTO) 10.9 % (0.0-13.0); NEUTROPHILS # (AUTO) 3.8 x10^3/uL (2.2-4.8); NEUTROPHILS % (AUTO) 63.1 % (42.0-75.0); RED BLOOD COUNT 3.09 X10^6/uL (4.7-6.0); WHITE BLOOD COUNT 6.1 X10^3/uL (3.6-10.0)
--- NOTE | 2021-09-01 06:25 | RAD ---
HISTORYSOBSTUDYCHEST, 1 [id number]/12/2022FINDINGSLINES AND TUBES: Stable right PICC line.HEART/ PULMONARY VASCULATURE: UnchangedLUNGS/ PLEURA: Bilateral right greater than left pulmonary opacities are unchanged. No sizable pleural effusion. No pneumothoraxIMPRESSIONNo significant interval change.Electronically signed by: Momo Scott (Sep 01, 2021 06:24:01)
[2021-09-01 06:26] LABS: ALANINE AMINOTRANSFERASE 73 Units/L (12-78); ALBUMIN 2.6 g/dL (3.4-5.0); ALKALINE PHOSPHATASE 251 Units/L (46-116); ASPARTATE AMINO TRANSFERASE 33 Units/L (15-37); BLOOD UREA NITROGEN 14 mg/dL (7-18); CALCIUM 8.3 mg/dL (8.5-10.1); CHLORIDE 103 mmol/L (98-107); COR CA(FOR HYPOALB) 9.4 mg/dL (8.5-10.1); COR NA(FOR HYPERGLY) 141 mmol/L (136-145); CREATININE 1.14 mg/dL (0.70-1.30); SODIUM 139 mmol/L (136-145); TOTAL PROTEIN 6.3 g/dL (6.4-8.2); eGFR NON BLACK RACES > 60 (>60)
[2021-09-01 06:56] LABS: BAND NEUTROPHILS % 2 % (0-10); METAMYELOCYTES % 2; PLATELET MORPHOLOGY COMMENT NORMAL (NORMAL)
[2021-09-01] MEDS ORDERED: ALLEGRA ONE (07:54)
[2021-09-01] MEDS: SAXAGLIPTIN 5 MG PO SCH (08:53)
[2021-09-01] MEDS: COZAAR PO SCH (08:58)
[2021-09-01] MEDS: SYNTHROID 75 mcg TAB PO SCH (08:59)
[2021-09-01] MEDS: VITAMIN D3 125 mcg (5,000 UNITS) PO SCH (08:59)
[2021-09-01] MEDS: MAG-OX TAB PO SCH (08:59)
[2021-09-01] MEDS: LOPID PO SCH ×2 (09:00→21:14)
[2021-09-01] MEDS: TOPROL XL PO SCH (09:00)
[2021-09-01] MEDS: VITAMIN B-12 PO SCH (09:00)
[2021-09-01] MEDS: PEPCID TAB 40 MG PO SCH ×2 (09:01→21:17)
[2021-09-01] MEDS: ZINC SULFATE PO SCH (09:02)
[2021-09-01] MEDS: PROTONIX TAB 40 MG PO SCH ×2 (09:02→21:16)
[2021-09-01] MEDS: REGLAN TAB 10 MG PO SCH ×4 (09:02→21:16)
[2021-09-01] MEDS: ZYVOX TAB 600 MG PO SCH ×2 (09:02→21:17)
[2021-09-01] MEDS: LOVENOX INJ 40 MG SYR SC SCH (09:03)
[2021-09-01] MEDS: VSL#3 PO SCH (09:04)
[2021-09-01] MEDS: ALLEGRA PO SCH (09:05)
[2021-09-01] MEDS: NovoLIN R (or HumuLIN R) SUBCUT SCH ×3 (09:05→21:11)
[2021-09-01] MEDS: ALBUMIN HUMAN 25%- 100 ML 100 ML IV SCH (09:06)
[2021-09-01] MEDS: ULTRAM PO PRN ×3 (12:22→21:13)
[2021-09-01] MEDS: SNACK - Diabetic Appropriate PO SCH (20:38)
[2021-09-01] MEDS: ZOFRAN INJ 4 MG VIAL IVP PRN (21:08)
[2021-09-01] MEDS: LANTUS SC SCH (21:11)
[2021-09-01] MEDS: FLOMAX PO SCH (21:14)
[2021-09-01] MEDS: NEURONTIN CAP 100 MG PO SCH (21:16)
[2021-09-01] MEDS: CRESTOR TAB 10 MG PO SCH (21:17)
[2021-09-02] MEDS: NS 1,000 ML IV 1,000 ML IV SCH ×3 (05:42→18:03)
--- NOTE | 2021-09-02 05:42 | RAD ---
HISTORYSOB HX: CVA, TIA, HTN, DM SX: GBSTUDYCHEST, 1 [id number]/13/2022FINDINGSThe trachea is midline. Right PICC line tip in distal SVC. The cardiac silhouette is unremarkable. Patchy bilateral pulmonary opacities minimally improved. No pneumothorax. The bony thorax is unremarkable.IMPRESSIONPatchy bilateral pulmonary opacities minimally improved from previous 09/01/2021.Electronically signed by: Joseph Vu (Sep 02, 2021 05:41:17)
[2021-09-02] MEDS: ZOSYN VIAL 3.375 GRAMS 3.375 G in NS 100 ML IV 100 ML IV SCH ×3 (06:02→21:17)
[2021-09-02 06:46] LABS: BASOPHILS % (AUTO) 0.7 % (0.2-1.0); EOSINOPHILS # (AUTO) 0.2 x10^3/uL (0.0-0.2); EOSINOPHILS % (AUTO) 3.3 % (0.9-2.9); HEMATOCRIT 23.1 % (42.0-54.0); LYMPHOCYTES # (AUTO) 1.2 X10^3/uL (1.3-2.9); MEAN CORPUSCULAR HEMOGLOBIN 26.8 pg (27.0-34.0); MEAN CORPUSCULAR HGB CONC 34.6 g/dL (33.0-35.0); MEAN CORPUSCULAR VOLUME 77.5 fL (80.0-100.0); MEAN PLATELET VOLUME 6.4 fL (7.4-11.0); MONOCYTES # (AUTO) 0.6 x10^3/uL (0.3-0.8); NEUTROPHILS # (AUTO) 4.5 x10^3/uL (2.2-4.8); RED BLOOD COUNT 2.98 X10^6/uL (4.7-6.0); RED CELL DISTRIBUTION WIDTH 16.2 % (11.6-16.5); WHITE BLOOD COUNT 6.6 X10^3/uL (3.6-10.0)
[2021-09-02 06:53] LABS: ALANINE AMINOTRANSFERASE 57 Units/L (12-78); ALBUMIN 2.6 g/dL (3.4-5.0); ALKALINE PHOSPHATASE 228 Units/L (46-116); ASPARTATE AMINO TRANSFERASE 24 Units/L (15-37); BLOOD UREA NITROGEN 15 mg/dL (7-18); CALCIUM 7.9 mg/dL (8.5-10.1); CARBON DIOXIDE 26.7 mmol/L (21-32); CHLORIDE 104 mmol/L (98-107); COR NA(FOR HYPERGLY) 140 mmol/L (136-145); CREATININE 1.15 mg/dL (0.70-1.30); SODIUM 139 mmol/L (136-145); TOTAL PROTEIN 6.3 g/dL (6.4-8.2); eGFR NON BLACK RACES > 60 (>60)
[2021-09-02] MEDS ORDERED: ALLEGRA ONE (08:29)
[2021-09-02] MEDS: ALBUMIN HUMAN 25%- 100 ML 100 ML IV SCH (08:47)
[2021-09-02] MEDS: ALLEGRA PO SCH (08:48)
[2021-09-02] MEDS: COZAAR PO SCH (08:48)
[2021-09-02] MEDS: LOVENOX INJ 40 MG SYR SC SCH (08:49)
[2021-09-02] MEDS: MAG-OX TAB PO SCH (08:49)
[2021-09-02] MEDS: LOPID PO SCH ×2 (08:49→21:14)
[2021-09-02] MEDS: NovoLIN R (or HumuLIN R) SUBCUT SCH ×3 (08:50→21:18)
[2021-09-02] MEDS: PROTONIX TAB 40 MG PO SCH ×2 (08:50→21:15)
[2021-09-02] MEDS: PEPCID TAB 40 MG PO SCH ×2 (08:50→21:14)
[2021-09-02] MEDS: TOPROL XL PO SCH (08:51)
[2021-09-02] MEDS: SAXAGLIPTIN 5 MG PO SCH (08:51)
[2021-09-02] MEDS: REGLAN TAB 10 MG PO SCH ×4 (08:51→21:13)
[2021-09-02] MEDS: SYNTHROID 75 mcg TAB PO SCH (08:51)
[2021-09-02] MEDS: ZINC SULFATE PO SCH (08:52)
[2021-09-02] MEDS: VSL#3 PO SCH (08:52)
[2021-09-02] MEDS: VITAMIN D3 125 mcg (5,000 UNITS) PO SCH (08:52)
[2021-09-02] MEDS: VITAMIN B-12 PO SCH (08:52)
[2021-09-02] MEDS: ZYVOX TAB 600 MG PO SCH ×2 (08:53→21:16)
[2021-09-02] MEDS: ZOFRAN INJ 4 MG VIAL IVP PRN ×2 (09:29→21:33)
[2021-09-02] MEDS ORDERED: SALINE 3% 15 ML NEB TX ONE (13:09)
[2021-09-02] MEDS ORDERED: DUONEB 0.5 MG/3 MG (3 mL) NEB ONE (13:09)
[2021-09-02] MEDS ORDERED: SALINE 3% 15 ML NEB TX NEB ONE (13:13)
[2021-09-02] MEDS: DUONEB 0.5 MG/3 MG (3 mL) NEB SCH ×3 (13:15→20:00)
[2021-09-02] MEDS: CRESTOR TAB 10 MG PO SCH (21:12)
[2021-09-02] MEDS: FLOMAX PO SCH (21:13)
[2021-09-02] MEDS: NEURONTIN CAP 100 MG PO SCH (21:14)
[2021-09-02] MEDS: SNACK - Diabetic Appropriate PO SCH (21:19)
[2021-09-02] MEDS: TYLENOL 325 MG TAB PO PRN (21:33)
[2021-09-02] MEDS: LANTUS SC SCH (21:34)
[2021-09-02 21:37] LABS: BILIRUBIN,URINE NEGATIVE (NEGATIVE); BLOOD/HEMOGLOBIN,URINE 2+ (NEGATIVE); GLUCOSE, URINE 2+ (NEGATIVE); KETONES,URINE NEGATIVE (NEGATIVE); LEUKOCYTE ESTERASE ,URINE NEGATIVE (NEGATIVE); NITRITES,URINE NEGATIVE (NEGATIVE); PROTEIN,URINE 1+ (NEGATIVE); UROBILINOGEN,URINE NORMAL (NORMAL)
[2021-09-02 21:44] LABS: APPEARANCE,URINE CLEAR (CLEAR); COLOR,URINE YELLOW (YELLOW)
[2021-09-02 21:45] LABS: BACTERIA,URINE NEGATIVE /HPF (NEGATIVE); SQUAMOUS EPITHELIAL CELL,UR RARE /HPF (NEGATIVE)
[2021-09-03] MEDS: NS 1,000 ML IV 1,000 ML IV SCH ×4 (00:59→19:51)
--- NOTE | 2021-09-03 05:39 | RAD ---
HISTORYSOB HX: CVA, TIA, HTN, DM SX: GBSTUDYCHEST, 1 [id number]/14/2022FINDINGSThe trachea is midline. Right PICC line tip in distal SVC. The cardiac silhouette is unremarkable. Patchy bilateral pulmonary opacities unchanged. No pneumothorax. The bony thorax is unremarkable.IMPRESSIONStable portable chest.Electronically signed by: Joseph Vu (Sep 03, 2021 05:38:23)
[2021-09-03 06:20] LABS: ALANINE AMINOTRANSFERASE 50 Units/L (12-78); ALBUMIN 2.8 g/dL (3.4-5.0); ALKALINE PHOSPHATASE 205 Units/L (46-116); ASPARTATE AMINO TRANSFERASE 19 Units/L (15-37); BLOOD UREA NITROGEN 12 mg/dL (7-18); CARBON DIOXIDE 26.3 mmol/L (21-32); CHLORIDE 103 mmol/L (98-107); COR NA(FOR HYPERGLY) 143 mmol/L (136-145); CREATININE 1.12 mg/dL (0.70-1.30); SODIUM 140 mmol/L (136-145); TOTAL PROTEIN 6.3 g/dL (6.4-8.2); eGFR NON BLACK RACES > 60 (>60)
[2021-09-03 06:24] LABS: BASOPHILS % (AUTO) 0.6 % (0.2-1.0); EOSINOPHILS # (AUTO) 0.1 x10^3/uL (0.0-0.2); EOSINOPHILS % (AUTO) 2.1 % (0.9-2.9); HEMATOCRIT 23.2 % (42.0-54.0); HEMOGLOBIN 8.2 g/dL (13.5-18.0); LYMPHOCYTES % (AUTO) 15.9 % (21.0-51.0); MEAN CORPUSCULAR HEMOGLOBIN 27.5 pg (27.0-34.0); MEAN CORPUSCULAR HGB CONC 35.4 g/dL (33.0-35.0); MEAN CORPUSCULAR VOLUME 77.8 fL (80.0-100.0); MEAN PLATELET VOLUME 6.2 fL (7.4-11.0); MONOCYTES # (AUTO) 0.6 x10^3/uL (0.3-0.8); MONOCYTES % (AUTO) 8.9 % (0.0-13.0); NEUTROPHILS # (AUTO) 4.6 x10^3/uL (2.2-4.8); NEUTROPHILS % (AUTO) 72.5 % (42.0-75.0); RED BLOOD COUNT 2.97 X10^6/uL (4.7-6.0); RED CELL DISTRIBUTION WIDTH 16.3 % (11.6-16.5); WHITE BLOOD COUNT 6.3 X10^3/uL (3.6-10.0)
[2021-09-03] MEDS: ZOSYN VIAL 3.375 GRAMS 3.375 G in NS 100 ML IV 100 ML IV SCH ×3 (06:42→22:00)
--- NOTE | 2021-09-03 08:37 | PCM.PROG ---
Progress Note - Progress Note for Day of Date of Exam: 08/31/21 - Subjective Subjective: IS CURRENTLY BEING TREATED FOR OSTEOMYLITIS TO RIGHT FOOT, CELLULITIS, ABSCESS TO THE RIGHT FOOT, AND SEPSIS. HE HAS A PMH OF DM II, HTN, HYPERLIPIDEMIA, RIGHT CHARCOT FOOT, DIABETIC NEUROPATHY, AND CHOLECYSTECTOMY. HE IS DAY 3 S/P I&D AND WASHOUT TO BONE, DELAYED PRIMARY CLOSURE OF WOUND, DEEP BONE BIOPSY OF RIGHT FOOT, ANTIBIOTIC BEAD APPLICATION, POSTERIOR SPLINT APPLICATION BY . TODAY, HE IS ALERT AND ORIENTED, LYING IN BED ON MORNING ROUNDS. HE DENIES NAUSEA OR VOMITING. HE DOES CONTINUE WITH GENERALIZED WEAKNESS. HE ALSO REPORTS SHORTNESS OF BREATH AT TIMES. HE DENIES PAIN UPON ROUNDS. ON EXAMINATION, HEART IS REGULAR IN RATE AND RHYTHM. BILATERAL LUNGS NOTED WITH DIMINISHED LUNG SOUNDS THROUGHOUT. ABDOMEN IS ROUND, SOFT, AND NON- TENDER WITH NORMAL BOWEL SOUNDS NOTED IN ALL QUADRANTS. RIGHT FOOT NOTED WITH POSTERIOR SPLINT. PICC LINE NOTED TO RIGHT UPPER ARM. VITALS THIS MORNING ARE: 98.6-77-20-92%-158/72. HIS OXYGEN SATURATIONS HAVE BEEN IN THE 90s ON OXYGEN AT 2 LPM. LABS WERE OBTAINED. ABNORMAL LAB VALUES INCLUDE THE FOLLOWING: RBC 3.00, HGB 8.1, HCT 23.0, POTASSIUM 3.1, GLUCOSE 134, CALCIUM 8.2, AST 40, ALK PHOS 263, TOTAL PROTEIN 6.2, ALBUMIN 2.4. BLOOD AND WOUND CULTURES ARE POSITIVE FOR GROWTH OF GROUP B STREP AGALACTIAE AND STAPHYLOCOCCUS AUREUS. BOTH ARE SENSITIVE TO THE ZOSYN AND ZYVOX. A CHEST XRAY WAS OBTAINED DUE TO SHORTNESS OF BREATH. IT REVEALED: Airspace opacities in the right mid lower lung, may reflect asymmetric edema or pneumonia. HE IS CURRENTLY RECEIVING NORMAL SALINE AT 75ML/HR, ALBUMIN 25% IV DAILY, LOVENOX 40MG SC DAILY, ZYVOX 600MG PO Q12H, ZOSYN 3.375 IV TID, LANTUS 48 UNITS SC HS, HUMULIN R COVERAGE TO 40 UNITS SC BID AND 15 UNITS SC AT 1200, ZOFRAN 4MG IV Q8H PRN, THE POTASSIUM AND MAGNESIUM PROTOCOLS, AND HIS HOME MEDICATIONS WERE RESUMED. PATIENT COULD BENEFIT FROM REHAB STAY FOR PHYSICAL THERAPY AND WOUND CARE. WHEN PATIENT IS READY FOR DISCHARGE, WE PLAN TO CONTINUE ON IV ANTIBIOTICS FOR AT LEAST 6 WEEKS. WE PLAN TO FOLLOW UP WITH AM LABS AND CONTINUE TO MONITOR. TIME SPENT ON CLINICAL ASSESSMENT, REVIEWING LABS AND IMAGING, DECISION MAKING, AND DOCUMENTATION GREATER THAN 45 MINUTES. - Past Medical Family Social History Past Med/Fam/Surg Hx: No changes since H&P Allergies: Allergies codeine Adverse Reaction (Verified 01/28/19 16:32) RASH - Review of Systems ROS: No change since H&P - Vital Signs and I&O's Vital Signs: Temperature 99.1 F Pulse Rate [Left] 92 Pulse Rate 90 Respiratory Rate 18 Blood Pressure [Left Arm] 149/65 Blood Pressure 172/77 O2 Sat by Pulse Oximetry 95 Intake and Output: Intake & Output 08/31/21 09/01/21 09/02/21 09/03/21 10:59 11:59 11:59 11:59 Intake Total 2995 / 2995 3730 / 3730 Output Total 1750 / 1750 2320 / 2320 Balance 1245 / 1245 1410 / 1410 - Physical Exam Oriented: Normal, Time, Person Eyes: Normal Ear: Normal Nose: Normal Throat: Normal Respiratory: Generalized, Diminished Cardiovascular: Other (Pulses are intact b/l. Cap fill immediate to the b/l digits.) : Normal Auscultation: Bowel Sounds: Normal Tenderness: Normal Skin: Wound (RIGHT FOOT WOUND. POSTERIOR SPLINT IN PLACE) Musculoskeletal: Sensory Deficit (Sensation diminshed to the LE b/l.) Psychiatric: Normal Mood Description: Apathetic Affect: Quiet Speech Pattern: Clear - Laboratory and Diagnostics Result Diagrams: 09/03/21 05:26 09/03/21 05:26 Labs: 08/29/21 00:46 Blood Blood Culture - Final 08/29/21 00:40 Blood Blood Culture - Final 08/28/21 11:21 Foot - Right Wound Gram Stain - Final 08/28/21 11:21 Foot - Right Wound Culture - Final Staphylococcus Aureus 08/24/21 18:20 Foot - Right Wound Gram Stain - Final 08/24/21 18:20 Foot - Right Wound Culture - Final Strep Agalactiae - (Group B) Staphylococcus Aureus 08/25/21 11:46 Foot - Right Wound Gram Stain - Final 08/25/21 11:46 Foot - Right Wound Culture - Final Strep Agalactiae - (Group B) Staphylococcus Aureus 08/24/21 20:10 Blood Blood Culture - Final Strep Agalactiae - (Group B) 08/24/21 20:00 Blood Blood Culture - Final Staphylococcus Aureus Laboratory WBC 6.3 X10^3/uL (3.6-10.0) 09/03/21 05:26 RBC 2.97 X10^6/uL (4.7-6.0) L 09/03/21 05:26 Hgb 8.2 g/dL (13.5-18.0) L 09/03/21 05:26 Hct 23.2 % (42.0-54.0) L 09/03/21 05:26 MCV 77.8 fL (80.0-100.0) L 09/03/21 05:26 MCH 27.5 pg (27.0-34.0) 09/03/21 05:26 MCHC 35.4 g/dL (33.0-35.0) H 09/03/21 05:26 RDW 16.3 % (11.6-16.5) 09/03/21 05:26 Plt Count 373 X10^3/uL (150.0-450.0) 09/03/21 05:26 Plt Count Comment Adequate (ADEQUATE) 09/01/21 05:30 MPV 6.2 fL (7.4-11.0) L 09/03/21 05:26 Neut % (Auto) 72.5 % (42.0-75.0) 09/03/21 05:26 Lymph % (Auto) 15.9 % (21.0-51.0) L 09/03/21 05:26 [place] % (Auto) 8.9 % (0.0-13.0) 09/03/21 05:26 Eos % (Auto) 2.1 % (0.9-2.9) 09/03/21 05:26 Baso % (Auto) 0.6 % (0.2-1.0) 09/03/21 05:26 Neut # (Auto) 4.6 x10^3/uL (2.2-4.8) 09/03/21 05:26 Lymph # (Auto) 1.0 X10^3/uL (1.3-2.9) L 09/03/21 05:26 [place] # (Auto) 0.6 x10^3/uL (0.3-0.8) 09/03/21 05:26 Eos # (Auto) 0.1 x10^3/uL (0.0-0.2) 09/03/21 05:26 Baso # (Auto) 0.0 X10^3/uL (0.0-0.1) 09/03/21 05:26 Absolute Nucleated RBC 0.4 /100WBC 09/03/21 05:26 Total Counted 100 09/01/21 05:30 Neutrophils % (Manual) 56 % (39-76) 09/01/21 05:30 Band Neutrophils % 2 % (0-10) 09/01/21 05:30 Lymphocytes % (Manual) 30 % (13-43) 09/01/21 05:30 Monocytes % (Manual) 4 % (4-9) 09/01/21 05:30 Eosinophils % (Manual) 6 % (0-6) 09/01/21 05:30 Metamyelocytes % 2 09/01/21 05:30 Nucleated RBCs 2 08/30/21 03:37 Plt Morphology Comment Normal (NORMAL) 09/01/21 05:30 RBC Morphology Normal (NORMAL) 09/01/21 05:30 Sodium 140 mmol/L (136-145) 09/03/21 05:26 Corrected Sodium 143 mmol/L (136-145) 09/03/21 05:26 Potassium 3.6 mmol/L (3.5-5.1) 09/03/21 05:26 Chloride 103 mmol/L (98-107) 09/03/21 05:26 Carbon Dioxide 26.3 mmol/L (21-32) 09/03/21 05:26 BUN 12 mg/dL (7-18) 09/03/21 05:26 Creatinine 1.12 mg/dL (0.70-1.30) 09/03/21 05:26 Est GFR (MDRD) Af Amer > 60 (>60) 09/03/21 05:26 Est GFR (MDRD) Non-Af > 60 (>60) 09/03/21 05:26 Glucose 206 mg/dL (65-99) H 09/03/21 05:26 POC Glucose (mg/dL) 139 mg/dL (65-99) H 08/30/21 16:08 Calcium 8.0 mg/dL (8.5-10.1) L 09/03/21 05:26 Corrected Calcium 9.0 mg/dL (8.5-10.1) 09/03/21 05:26 Magnesium 1.8 mg/dL (1.7-2.9) 08/30/21 03:37 Total Bilirubin 0.60 mg/dL (0.2-1.0) 09/03/21 05:26 Direct Bilirubin 0.40 mg/dL (0-0.2) H 08/24/21 14:00 AST 19 Units/L (15-37) 09/03/21 05:26 ALT 50 Units/L (12-78) 09/03/21 05:26 Alkaline Phosphatase 205 Units/L (46-116) H 09/03/21 05:26 Creatine Kinase 144 Units/L (39-308) 08/24/21 14:00 CK-MB (CK-2) < 1.0 ng/mL (0-4.0) 08/24/21 14:00 CK/CKMB % Calc 0.7 % (<4) 08/24/21 14:00 Troponin I High Sens 23.4 ng/L (4.0-60.0) 08/24/21 14:00 C-Reactive Protein 71.40 mg/L (0-3.0) H 08/30/21 03:37 Total Protein 6.3 g/dL (6.4-8.2) L 09/03/21 05:26 Albumin 2.8 g/dL (3.4-5.0) L 09/03/21 05:26 Globulin 3.5 g/dL (2.5-4.5) 09/03/21 05:26 Albumin/Globulin Ratio 0.8 Ratio (1.1-2.1) L 09/03/21 05:26 TSH 3rd Generation 1.547 uIU/mL (0.358-3.74) 08/24/21 14:00 Specimen Type Clean catch urine 09/02/21 21:25 Urine Color Yellow (YELLOW) 09/02/21 21:25 Urine Appearance Clear (CLEAR) 09/02/21 21:25 Urine pH 6.0 (5.0 - 8.0) 09/02/21 21:25 Ur Specific [place] 1.015 (1.000-1.030) 09/02/21 21:25 Urine Protein 1+ (NEGATIVE) 09/02/21 21:25 Urine Glucose (UA) 2+ (NEGATIVE) 09/02/21 21:25 Urine Ketones Negative (NEGATIVE) 09/02/21 21:25 Urine Occult Blood 2+ (NEGATIVE) 09/02/21 21:25 Urine Nitrite Negative (NEGATIVE) 09/02/21 21:25 Urine Bilirubin Negative (NEGATIVE) 09/02/21 21:25 Urine Urobilinogen Normal (NORMAL) 09/02/21 21:25 Ur Leukocyte Esterase Negative (NEGATIVE) 09/02/21 21:25 Urine RBC 3-5 /HPF (0-3) A 09/02/21 21:25 Urine WBC None seen /HPF (0-5) 09/02/21 21:25 Ur Squamous Epith Cells Rare /HPF (NEGATIVE) 09/02/21 21:25 Urine Bacteria Negative /HPF (NEGATIVE) 09/02/21 21:25 Ur Culture Indicated? No/not indicated 09/02/21 21:25 SARS CoV-2 RNA Rapid ANIBAL Negative (NEGATIVE) 08/24/21 15:05 Tissue Pathology To follow 08/28/21 11:15 - Plan (1) Osteomyelitis Status: Suspected Qualifiers: Osteomyelitis type: unspecified type Osteomyelitis location: foot Laterality: right Qualified Code(s): M86.9 - Osteomyelitis, unspecified Plan: IV FLUIDS, ANTIBIOTICS, ALBUMIN, WOUND CARE, NAUSEA CONTROL, BLOOD GLUCOSE CONTROL AND MONITORING (2) Cellulitis of right foot Status: Acute (3) Abscess of right foot Status: Acute (4) Sepsis Status: Acute Qualifiers: Sepsis type: methicillin susceptible Staphylococcus aureus Sepsis acute organ dysfunction status: unspecified Qualified Code(s): A41.01 - Sepsis due to Methicillin susceptible Staphylococcus aureus (5) Pneumonia Status: Acute Qualifiers: Pneumonia type: due to unspecified organism Laterality: right Lung location: middle lobe of lung Qualified Code(s): J18.9 - Pneumonia, unspecified organism (6) Dehydration Status: Acute (7) Hypoalbuminemia Status: Acute (8) Hyponatremia Status: Resolved (9) Hypertension Status: Chronic Qualifiers: Hypertension type: primary hypertension Qualified Code(s): I10 - Essential (primary) hypertension (10) Diabetic neuropathy Status: Chronic Qualifiers: Diabetes mellitus type: type 2 Diabetes mellitus complication detail: with other neurological complication Qualified Code(s): E11.49 - Type 2 diabetes mellitus with other diabetic neurological complication (11) Diabetes mellitus Status: Chronic Qualifiers: Diabetes mellitus type: type 2 Diabetes mellitus fpc insulin use: with [place] use Diabetes mellitus complication status: with hyperglycemia Qualified Code(s): E11.65 - Type 2 diabetes mellitus with hyperglycemia; Z79.4 - [facility] (current) use of insulin
--- NOTE | 2021-09-03 08:40 | PCM.PROG ---
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 HE HAS A PMH OF DM II, HTN, HYPERLIPIDEMIA, RIGHT CHARCOT FOOT, DIABETIC NEUROPATHY, AND CHOLECYSTECTOMY. HE IS DAY 4 S/P I&D AND WASHOUT TO BONE, DELAYED PRIMARY CLOSURE OF WOUND, DEEP BONE BIOPSY OF RIGHT FOOT, ANTIBIOTIC BEAD APPLICATION, POSTERIOR SPLINT APPLICATION BY . TODAY, HE IS ALERT AND ORIENTED, LYING IN BED ON MORNING ROUNDS. HE DENIES NAUSEA OR VOMITING. HE DOES CONTINUE WITH GENERALIZED WEAKNESS. HE DENIES PAIN UPON ROUNDS. ON EXAMINATION, HEART IS REGULAR IN RATE AND RHYTHM. BILATERAL LUNGS NOTED WITH DIMINISHED LUNG SOUNDS THROUGHOUT. ABDOMEN IS ROUND, SOFT, AND NON-TENDER WITH NORMAL BOWEL SOUNDS NOTED IN ALL QUADRANTS. RIGHT FOOT NOTED WITH POSTERIOR SPLINT. PICC LINE NOTED TO RIGHT UPPER ARM. VITALS THIS MORNING ARE: 98.9-78-20-96%-156/74. HIS OXYGEN SATURATIONS HAVE BEEN IN THE 90s ON OXYGEN AT 2 LPM. LABS WERE OBTAINED. ABNORMAL LAB VALUES INCLUDE THE FOLLOWING: RBC 3.09, HGB 8.4, HCT 23.9, GLUCOSE 168, CALCIUM 8.3, ALK PHOS 251, TOTAL PROTEIN 6.3, ALBUMIN 2.6. BLOOD AND WOUND CULTURES ARE POSITIVE FOR GROWTH OF GROUP B STREP AGALACTIAE AND STAPHYLOCOCCUS AUREUS. BOTH ARE SENSITIVE TO THE ZOSYN AND ZYVOX. A CHEST XRAY WAS OBTAINED AND REVEALED NO SIGNIFICANT CHANGE. HE IS CURRENTLY RECEIVING NORMAL SALINE AT 75ML/HR, ALBUMIN 25% IV DAILY, L OVENOX 40MG SC DAILY, ZYVOX 600MG PO Q12H, ZOSYN 3.375 IV TID, LANTUS 48 UNITS SC HS, HUMULIN R COVERAGE TO 40 UNITS SC BID AND 15 UNITS SC AT 1200, ZOFRAN 4MG IV Q8H PRN, THE POTASSIUM AND MAGNESIUM PROTOCOLS, AND HIS HOME MEDICATIONS WERE RESUMED. PATIENT COULD BENEFIT FROM REHAB STAY FOR PHYSICAL THERAPY AND WOUND CARE. WHEN PATIENT IS READY FOR DISCHARGE, WE PLAN TO CONTINUE ON IV ANTIBIOTICS FOR AT LEAST 6 WEEKS. WE PLAN TO FOLLOW UP WITH AM LABS AND CONTINUE TO MONITOR. TIME SPENT ON CLINICAL ASSESSMENT, REVIEWING LABS AND IMAGING, DECISION MAKING, AND DOCUMENTATION GREATER THAN 45 MINUTES. - Past Medical Family Social History Past Med/Fam/Surg Hx: No changes since H&P Allergies: Allergies codeine Adverse Reaction (Verified 01/28/19 16:32) RASH - Review of Systems ROS: No change since H&P - Vital Signs and I&O's Vital Signs: Temperature 99.1 F Pulse Rate [Left] 92 Pulse Rate 90 Respiratory Rate 18 Blood Pressure [Left Arm] 149/65 Blood Pressure 172/77 O2 Sat by Pulse Oximetry 95 Intake and Output: Intake & Output 08/31/21 09/01/21 09/02/21 09/03/21 10:59 11:59 11:59 11:59 Intake Total 2995 / 2995 3730 / 3730 Output Total 1750 / 1750 2320 / 2320 Balance 1245 / 1245 1410 / 1410 - Physical Exam Oriented: Normal, Time, Person Eyes: Normal Ear: Normal Nose: Normal Throat: Normal Respiratory: Generalized, Diminished Cardiovascular: Other (Pulses are intact b/l. Cap fill immediate to the b/l digits.) : Normal Auscultation: Bowel Sounds: Normal Tenderness: Normal Skin: Wound (RIGHT FOOT WOUND. POSTERIOR SPLINT IN PLACE) Musculoskeletal: Sensory Deficit (Sensation diminshed to the LE b/l.) Psychiatric: Normal Mood Description: Apathetic Affect: Quiet Speech Pattern: Clear - Laboratory and Diagnostics Result Diagrams: 09/03/21 05:26 09/03/21 05:26 Labs: 08/29/21 00:46 Blood Blood Culture - Final 08/29/21 00:40 Blood Blood Culture - Final 08/28/21 11:21 Foot - Right Wound Gram Stain - Final 08/28/21 11:21 Foot - Right Wound Culture - Final Staphylococcus Aureus 08/24/21 18:20 Foot - Right Wound Gram Stain - Final 08/24/21 18:20 Foot - Right Wound Culture - Final Strep Agalactiae - (Group B) Staphylococcus Aureus 08/25/21 11:46 Foot - Right Wound Gram Stain - Final 08/25/21 11:46 Foot - Right Wound Culture - Final Strep Agalactiae - (Group B) Staphylococcus Aureus 08/24/21 20:10 Blood Blood Culture - Final Strep Agalactiae - (Group B) 08/24/21 20:00 Blood Blood Culture - Final Staphylococcus Aureus Laboratory WBC 6.3 X10^3/uL (3.6-10.0) 09/03/21 05:26 RBC 2.97 X10^6/uL (4.7-6.0) L 09/03/21 05:26 Hgb 8.2 g/dL (13.5-18.0) L 09/03/21 05:26 Hct 23.2 % (42.0-54.0) L 09/03/21 05:26 MCV 77.8 fL (80.0-100.0) L 09/03/21 05:26 MCH 27.5 pg (27.0-34.0) 09/03/21 05:26 MCHC 35.4 g/dL (33.0-35.0) H 09/03/21 05:26 RDW 16.3 % (11.6-16.5) 09/03/21 05:26 Plt Count 373 X10^3/uL (150.0-450.0) 09/03/21 05:26 Plt Count Comment Adequate (ADEQUATE) 09/01/21 05:30 MPV 6.2 fL (7.4-11.0) L 09/03/21 05:26 Neut % (Auto) 72.5 % (42.0-75.0) 09/03/21 05:26 Lymph % (Auto) 15.9 % (21.0-51.0) L 09/03/21 05:26 [place] % (Auto) 8.9 % (0.0-13.0) 09/03/21 05:26 Eos % (Auto) 2.1 % (0.9-2.9) 09/03/21 05:26 Baso % (Auto) 0.6 % (0.2-1.0) 09/03/21 05:26 Neut # (Auto) 4.6 x10^3/uL (2.2-4.8) 09/03/21 05:26 Lymph # (Auto) 1.0 X10^3/uL (1.3-2.9) L 09/03/21 05:26 [place] # (Auto) 0.6 x10^3/uL (0.3-0.8) 09/03/21 05:26 Eos # (Auto) 0.1 x10^3/uL (0.0-0.2) 09/03/21 05:26 Baso # (Auto) 0.0 X10^3/uL (0.0-0.1) 09/03/21 05:26 Absolute Nucleated RBC 0.4 /100WBC 09/03/21 05:26 Total Counted 100 09/01/21 05:30 Neutrophils % (Manual) 56 % (39-76) 09/01/21 05:30 Band Neutrophils % 2 % (0-10) 09/01/21 05:30 Lymphocytes % (Manual) 30 % (13-43) 09/01/21 05:30 Monocytes % (Manual) 4 % (4-9) 09/01/21 05:30 Eosinophils % (Manual) 6 % (0-6) 09/01/21 05:30 Metamyelocytes % 2 09/01/21 05:30 Nucleated RBCs 2 08/30/21 03:37 Plt Morphology Comment Normal (NORMAL) 09/01/21 05:30 RBC Morphology Normal (NORMAL) 09/01/21 05:30 Sodium 140 mmol/L (136-145) 09/03/21 05:26 Corrected Sodium 143 mmol/L (136-145) 09/03/21 05:26 Potassium 3.6 mmol/L (3.5-5.1) 09/03/21 05:26 Chloride 103 mmol/L (98-107) 09/03/21 05:26 Carbon Dioxide 26.3 mmol/L (21-32) 09/03/21 05:26 BUN 12 mg/dL (7-18) 09/03/21 05:26 Creatinine 1.12 mg/dL (0.70-1.30) 09/03/21 05:26 Est GFR (MDRD) Af Amer > 60 (>60) 09/03/21 05:26 Est GFR (MDRD) Non-Af > 60 (>60) 09/03/21 05:26 Glucose 206 mg/dL (65-99) H 09/03/21 05:26 POC Glucose (mg/dL) 139 mg/dL (65-99) H 08/30/21 16:08 Calcium 8.0 mg/dL (8.5-10.1) L 09/03/21 05:26 Corrected Calcium 9.0 mg/dL (8.5-10.1) 09/03/21 05:26 Magnesium 1.8 mg/dL (1.7-2.9) 08/30/21 03:37 Total Bilirubin 0.60 mg/dL (0.2-1.0) 09/03/21 05:26 Direct Bilirubin 0.40 mg/dL (0-0.2) H 08/24/21 14:00 AST 19 Units/L (15-37) 09/03/21 05:26 ALT 50 Units/L (12-78) 09/03/21 05:26 Alkaline Phosphatase 205 Units/L (46-116) H 09/03/21 05:26 Creatine Kinase 144 Units/L (39-308) 08/24/21 14:00 CK-MB (CK-2) < 1.0 ng/mL (0-4.0) 08/24/21 14:00 CK/CKMB % Calc 0.7 % (<4) 08/24/21 14:00 Troponin I High Sens 23.4 ng/L (4.0-60.0) 08/24/21 14:00 C-Reactive Protein 71.40 mg/L (0-3.0) H 08/30/21 03:37 Total Protein 6.3 g/dL (6.4-8.2) L 09/03/21 05:26 Albumin 2.8 g/dL (3.4-5.0) L 09/03/21 05:26 Globulin 3.5 g/dL (2.5-4.5) 09/03/21 05:26 Albumin/Globulin Ratio 0.8 Ratio (1.1-2.1) L 09/03/21 05:26 TSH 3rd Generation 1.547 uIU/mL (0.358-3.74) 08/24/21 14:00 Specimen Type Clean catch urine 09/02/21 21:25 Urine Color Yellow (YELLOW) 09/02/21 21:25 Urine Appearance Clear (CLEAR) 09/02/21 21:25 Urine pH 6.0 (5.0 - 8.0) 09/02/21 21:25 Ur Specific [place] 1.015 (1.000-1.030) 09/02/21 21:25 Urine Protein 1+ (NEGATIVE) 09/02/21 21:25 Urine Glucose (UA) 2+ (NEGATIVE) 03/14/22 21:25 Urine Ketones Negative (NEGATIVE) 09/02/21 21:25 Urine Occult Blood 2+ (NEGATIVE) 09/02/21 21:25 Urine Nitrite Negative (NEGATIVE) 09/02/21 21:25 Urine Bilirubin Negative (NEGATIVE) 09/02/21 21:25 Urine Urobilinogen Normal (NORMAL) 09/02/21 21:25 Ur Leukocyte Esterase Negative (NEGATIVE) 09/02/21 21:25 Urine RBC 3-5 /HPF (0-3) A 09/02/21 21:25 Urine WBC None seen /HPF (0-5) 09/02/21 21:25 Ur Squamous Epith Cells Rare /HPF (NEGATIVE) 09/02/21 21:25 Urine Bacteria Negative /HPF (NEGATIVE) 09/02/21 21:25 Ur Culture Indicated? No/not indicated 09/02/21 21:25 SARS CoV-2 RNA Rapid ANIBAL Negative (NEGATIVE) 08/24/21 15:05 Tissue Pathology To follow 08/28/21 11:15 - Plan (1) Osteomyelitis Status: Suspected Qualifiers: Osteomyelitis type: unspecified type Osteomyelitis location: foot Laterality: right Qualified Code(s): M86.9 - Osteomyelitis, unspecified Plan: IV FLUIDS, ANTIBIOTICS, ALBUMIN, WOUND CARE, NAUSEA CONTROL, BLOOD GLUCOSE CONTROL AND MONITORING (2) Cellulitis of right foot Status: Acute (3) Abscess of right foot Status: Acute (4) Sepsis Status: Acute Qualifiers: Sepsis type: methicillin susceptible Staphylococcus aureus Sepsis acute organ dysfunction status: unspecified Qualified Code(s): A41.01 - Sepsis due to Methicillin susceptible Staphylococcus aureus (5) Pneumonia Status: Acute Qualifiers: Pneumonia type: due to unspecified organism Laterality: right Lung location: middle lobe of lung Qualified Code(s): J18.9 - Pneumonia, unspecified organism (6) Dehydration Status: Acute (7) Hypoalbuminemia Status: Acute (8) Hyponatremia Status: Resolved (9) Hypertension Status: Chronic Qualifiers: Hypertension type: primary hypertension Qualified Code(s): I10 - Essential (primary) hypertension (10) Diabetic neuropathy Status: Chronic Qualifiers: Diabetes mellitus type: type 2 Diabetes mellitus complication detail: with other neurological complication Qualified Code(s): E11.49 - Type 2 diabetes mellitus with other diabetic neurological complication (11) Diabetes mellitus Status: Chronic Qualifiers: Diabetes mellitus type: type 2 Diabetes mellitus custodial insulin use: with custodial use Diabetes mellitus complication status: with hyperglycemia Qualified Code(s): E11.65 - Type 2 diabetes mellitus with hyperglycemia; Z79.4 - custodial (current) use of insulin
[2021-09-03] MEDS ORDERED: ALLEGRA ONE (09:03)
[2021-09-03] MEDS: VITAMIN D3 125 mcg (5,000 UNITS) PO SCH (09:07)
[2021-09-03] MEDS: VSL#3 PO SCH (09:07)
[2021-09-03] MEDS: ZINC SULFATE PO SCH (09:08)
[2021-09-03] MEDS: COZAAR PO SCH (09:08)
[2021-09-03] MEDS: LOVENOX INJ 40 MG SYR SC SCH (09:09)
[2021-09-03] MEDS: REGLAN TAB 10 MG PO SCH ×4 (09:10→20:40)
[2021-09-03] MEDS: VITAMIN B-12 PO SCH (09:10)
[2021-09-03] MEDS: SYNTHROID 75 mcg TAB PO SCH (09:10)
[2021-09-03] MEDS: ALLEGRA PO SCH (09:10)
[2021-09-03] MEDS: MAG-OX TAB PO SCH (09:11)
[2021-09-03] MEDS: TOPROL XL PO SCH (09:11)
[2021-09-03] MEDS: LOPID PO SCH ×2 (09:11→20:42)
[2021-09-03] MEDS: PROTONIX TAB 40 MG PO SCH ×2 (09:12→20:42)
[2021-09-03] MEDS: PEPCID TAB 40 MG PO SCH ×2 (09:12→20:41)
[2021-09-03] MEDS: ZYVOX TAB 600 MG PO SCH ×2 (09:12→20:40)
[2021-09-03] MEDS: SAXAGLIPTIN 5 MG PO SCH (09:13)
[2021-09-03] MEDS: DUONEB 0.5 MG/3 MG (3 mL) NEB SCH ×4 (09:15→20:24)
[2021-09-03] MEDS ORDERED: BETADINE SOLN ONE (09:55)
[2021-09-03] MEDS: NovoLIN R (or HumuLIN R) SUBCUT SCH ×4 (10:24→22:00)
[2021-09-03] MEDS: ALBUMIN HUMAN 25%- 100 ML 100 ML IV SCH (10:29)
--- NOTE | 2021-09-03 10:43 | PCM.PROG ---
Progress Note Progress Note for Day of Date of Exam: 09/03/21 Subjective Subjective: Mr. Lynch is a 61 yo male with a PMHx of DM. He is s/p right foot debridement with bone biopsy. He is doing well with Minimal pain. He denies any f/c/n/v/sob/calf pain. Past Medical Family Social History Past Med/Fam/Surg Hx: No changes since H&P Allergies: Allergies codeine Adverse Reaction (Verified 01/28/19 16:32) RASH Review of Systems ROS: No change since H&P Vital Signs and I&O's Vital Signs: Temperature 99.1 F Pulse Rate [Left] 92 Pulse Rate 85 Respiratory Rate 18 Blood Pressure [Left Arm] 149/65 Blood Pressure 172/77 O2 Sat by Pulse Oximetry 96 Intake and Output: Intake & Output 08/31/21 09/01/21 09/02/21 09/03/21 22:59 23:59 23:59 23:59 Intake Total 2770 / 2770 1600 / 1600 Output Total 1860 / 1860 860 / 860 Balance 910 / 910 740 / 740 Physical Exam Oriented: Normal, Time and Person Eyes: Normal Ear: Normal Nose: Normal Throat: Normal Respiratory: Generalized and Diminished Cardiovascular: Other (Pulses are intact b/l. Cap fill immediate to the b/l digits. ) : Normal Auscultation: Bowel Sounds: Normal Tenderness: Normal Skin: Wound (Right foot with the skin well coapted and the sutures intact. Skin edges macerated. Serous drainage noted. No malodor. No fluctuance. No erythema.) Musculoskeletal: Sensory Deficit (Sensation diminshed to the LE b/l.) Psychiatric: Normal Mood Description: Apathetic Affect: Quiet Speech Pattern: Clear Laboratory and Diagnostics Result Diagrams: 09/03/21 05:26 09/03/21 05:26 Labs: 08/29/21 00:46 Blood Blood Culture - Final 08/29/21 00:40 Blood Blood Culture - Final 08/28/21 11:21 Foot - Right Wound Gram Stain - Final 08/28/21 11:21 Foot - Right Wound Culture - Final Staphylococcus Aureus 08/24/21 18:20 Foot - Right Wound Gram Stain - Final 08/24/21 18:20 Foot - Right Wound Culture - Final Strep Agalactiae - (Group B) Staphylococcus Aureus 08/25/21 11:46 Foot - Right Wound Gram Stain - Final 08/25/21 11:46 Foot - Right Wound Culture - Final Strep Agalactiae - (Group B) Staphylococcus Aureus 08/24/21 20:10 Blood Blood Culture - Final Strep Agalactiae - (Group B) 08/24/21 20:00 Blood Blood Culture - Final Staphylococcus Aureus Laboratory WBC 6.3 X10^3/uL (3.6-10.0) 09/03/21 05:26 RBC 2.97 X10^6/uL (4.7-6.0) L 09/03/21 05:26 Hgb 8.2 g/dL (13.5-18.0) L 09/03/21 05:26 Hct 23.2 % (42.0-54.0) L 09/03/21 05:26 MCV 77.8 fL (80.0-100.0) L 09/03/21 05:26 MCH 27.5 pg (27.0-34.0) 09/03/21 05:26 MCHC 35.4 g/dL (33.0-35.0) H 09/03/21 05:26 RDW 16.3 % (11.6-16.5) 09/03/21 05:26 Plt Count 373 X10^3/uL (150.0-450.0) 09/03/21 05:26 Plt Count Comment Adequate (ADEQUATE) 09/01/21 05:30 MPV 6.2 fL (7.4-11.0) L 09/03/21 05:26 Neut % (Auto) 72.5 % (42.0-75.0) 09/03/21 05:26 Lymph % (Auto) 15.9 % (21.0-51.0) L 09/03/21 05:26 [place] % (Auto) 8.9 % (0.0-13.0) 09/03/21 05:26 Eos % (Auto) 2.1 % (0.9-2.9) 09/03/21 05:26 Baso % (Auto) 0.6 % (0.2-1.0) 09/03/21 05:26 Neut # (Auto) 4.6 x10^3/uL (2.2-4.8) 09/03/21 05:26 Lymph # (Auto) 1.0 X10^3/uL (1.3-2.9) L 09/03/21 05:26 [place] # (Auto) 0.6 x10^3/uL (0.3-0.8) 09/03/21 05:26 Eos # (Auto) 0.1 x10^3/uL (0.0-0.2) 09/03/21 05:26 Baso # (Auto) 0.0 X10^3/uL (0.0-0.1) 09/03/21 05:26 Absolute Nucleated RBC 0.4 /100WBC 09/03/21 05:26 Total Counted 100 09/01/21 05:30 Neutrophils % (Manual) 56 % (39-76) 09/01/21 05:30 Band Neutrophils % 2 % (0-10) 09/01/21 05:30 Lymphocytes % (Manual) 30 % (13-43) 09/01/21 05:30 Monocytes % (Manual) 4 % (4-9) 09/01/21 05:30 Eosinophils % (Manual) 6 % (0-6) 09/01/21 05:30 Metamyelocytes % 2 09/01/21 05:30 Nucleated RBCs 2 08/30/21 03:37 Plt Morphology Comment Normal (NORMAL) 09/01/21 05:30 RBC Morphology Normal (NORMAL) 09/01/21 05:30 Sodium 140 mmol/L (136-145) 09/03/21 05:26 Corrected Sodium 143 mmol/L (136-145) 09/03/21 05:26 Potassium 3.6 mmol/L (3.5-5.1) 09/03/21 05:26 Chloride 103 mmol/L (98-107) 09/03/21 05:26 Carbon Dioxide 26.3 mmol/L (21-32) 09/03/21 05:26 BUN 12 mg/dL (7-18) 09/03/21 05:26 Creatinine 1.12 mg/dL (0.70-1.30) 09/03/21 05:26 Est GFR (MDRD) Af Amer > 60 (>60) 09/03/21 05:26 Est GFR (MDRD) Non-Af > 60 (>60) 09/03/21 05:26 Glucose 206 mg/dL (65-99) H 09/03/21 05:26 POC Glucose (mg/dL) 139 mg/dL (65-99) H 08/30/21 16:08 Calcium 8.0 mg/dL (8.5-10.1) L 09/03/21 05:26 Corrected Calcium 9.0 mg/dL (8.5-10.1) 09/03/21 05:26 Magnesium 1.8 mg/dL (1.7-2.9) 08/30/21 03:37 Total Bilirubin 0.60 mg/dL (0.2-1.0) 09/03/21 05:26 Direct Bilirubin 0.40 mg/dL (0-0.2) H 08/24/21 14:00 AST 19 Units/L (15-37) 09/03/21 05:26 ALT 50 Units/L (12-78) 09/03/21 05:26 Alkaline Phosphatase 205 Units/L (46-116) H 09/03/21 05:26 Creatine Kinase 144 Units/L (39-308) 08/24/21 14:00 CK-MB (CK-2) < 1.0 ng/mL (0-4.0) 08/24/21 14:00 CK/CKMB % Calc 0.7 % (<4) 08/24/21 14:00 Troponin I High Sens 23.4 ng/L (4.0-60.0) 08/24/21 14:00 C-Reactive Protein 71.40 mg/L (0-3.0) H 08/30/21 03:37 Total Protein 6.3 g/dL (6.4-8.2) L 09/03/21 05:26 Albumin 2.8 g/dL (3.4-5.0) L 09/03/21 05:26 Globulin 3.5 g/dL (2.5-4.5) 09/03/21 05:26 Albumin/Globulin Ratio 0.8 Ratio (1.1-2.1) L 09/03/21 05:26 TSH 3rd Generation 1.547 uIU/mL (0.358-3.74) 08/24/21 14:00 Specimen Type Clean catch urine 09/02/21 21:25 Urine Color Yellow (YELLOW) 09/02/21 21:25 Urine Appearance Clear (CLEAR) 09/02/21 21:25 Urine pH 6.0 (5.0 - 8.0) 09/02/21 21:25 Ur Specific [place] 1.015 (1.000-1.030) 09/02/21 21:25 Urine Protein 1+ (NEGATIVE) 09/02/21 21:25 Urine Glucose (UA) 2+ (NEGATIVE) 09/02/21 21:25 Urine Ketones Negative (NEGATIVE) 09/02/21 21: Urine Occult Blood 2+ (NEGATIVE) 09/02/21 21:25 Urine Nitrite Negative (NEGATIVE) 09/02/21 21: Urine Bilirubin Negative (NEGATIVE) 09/02/21 21:25 Urine Urobilinogen Normal (NORMAL) 09/02/21 21:25 Ur Leukocyte Esterase Negative (NEGATIVE) 09/02/21 21:25 Urine RBC 3-5 /HPF (0-3) A 09/02/21 21:25 Urine WBC None seen /HPF (0-5) 09/02/21 21:25 Ur Squamous Epith Cells Rare /HPF (NEGATIVE) 09/02/21 21:25 Urine Bacteria Negative /HPF (NEGATIVE) 09/02/21 21:25 Ur Culture Indicated? No/not indicated 09/02/21 21:25 SARS CoV-2 RNA Rapid ANIBAL Negative (NEGATIVE) 08/24/21 15:05 Tissue Pathology To follow 08/28/21 11:15 Plan (1) Osteomyelitis: Status: Suspected Qualifiers: Laterality: right Osteomyelitis location: foot Osteomyelitis type: unspecified type Qualified Code(s): M86.9 - Osteomyelitis, unspecified Plan: Mr. Lynch is a 61 yo male with DM , Right charcot foot. He is s/p right foot washout with placement of abx bead and dpc. He is with VSS and NAD. Wound is slightly macerated. Antibiotic beads removed today without issues. Bone biopsy was negative for osteomyelitis. Plan: Strict NWB on the right Antibiotic beads removed. Wound packed with plain packing and dressed with 4x4, cast padding and posterior splint with ana maria. He will need to do this dressing change every other day and may supplies or home health for assistance. Elevate x2 pillows He is to follow up with Dr. Guevara in Clinic Rx's in the chart. Will monitor Please do not hesitate to contact me with questions or concerns. Travis Faye DPM fellow [phone] (2) Cellulitis of right foot: Status: Acute Plan: WOUND VAC, IV FLUIDS, ANTIBIOTICS, ALBUMIN, WOUND CARE, NAUSEA CONTROL, BLOOD GLUCOSE CONTROL AND MONITORING (3) Abscess of right foot: Status: Acute (4) Sepsis: Status: Acute Qualifiers: Sepsis acute organ dysfunction status: unspecified Sepsis type: methicillin susceptible Staphylococcus aureus Qualified Code(s): A41.01 - Sepsis due to Methicillin susceptible Staphylococcus aureus (5) Pneumonia: Status: Acute Qualifiers: Laterality: right Lung location: middle lobe of lung Pneumonia type: due to unspecified organism Qualified Code(s): J18.9 - Pneumonia, unspecified organism (6) Dehydration: Status: Acute (7) Hypoalbuminemia: Status: Acute (8) Hyponatremia: Status: Resolved (9) Hypertension: Status: Chronic Qualifiers: Hypertension type: primary hypertension Qualified Code(s): I10 - Essential (primary) hypertension (10) Diabetic neuropathy: Status: Chronic Qualifiers: Diabetes mellitus complication detail: with other neurological complication Diabetes mellitus type: type 2 Qualified Code(s): E11.49 - Type 2 diabetes mellitus with other diabetic neurological complication (11) Diabetes mellitus: Status: Chronic Qualifiers: Diabetes mellitus complication status: with hyperglycemia Diabetes mellitus prison insulin use: with prison use Diabetes mellitus type: type 2 Qualified Code(s): E11.65 - Type 2 diabetes mellitus with hyperglycemia; Z79.4 - correction (current) use of insulin
--- NOTE | 2021-09-03 10:52 | PCM.PROG ---
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 HE HAS A PMH OF DM II, HTN, HYPERLIPIDEMIA, RIGHT CHARCOT FOOT, DIABETIC NEUROPATHY, AND CHOLECYSTECTOMY. HE IS S/P I&D AND WASHOUT TO BONE, DELAYED PRIMARY CLOSURE OF WOUND, DEEP BONE BIOPSY OF RIGHT FOOT, ANTIBIOTIC BEAD APPLICATION, POSTERIOR SPLINT APPLICATION BY . TODAY, HE IS ALERT AND ORIENTED, LYING IN BED ON MORNING ROUNDS. HE DENIES NAUSEA OR VOMITING. HE DOES CONTINUE WITH GENERALIZED WEAKNESS. HE DENIES PAIN UPON ROUNDS. ON EXAMINATION, HEART IS REGULAR IN RATE AND RHYTHM. BILATERAL LUNGS NOTED WITH DIMINISHED LUNG SOUNDS THROUGHOUT. ABDOMEN IS ROUND, SOFT, AND NON-TENDER WITH NORMAL BOWEL SOUNDS NOTED IN ALL QUADRANTS. RIGHT FOOT NOTED WITH POSTERIOR SPLINT. PICC LINE NOTED TO RIGHT UPPER ARM. VITALS THIS MORNING ARE: 99.1-92-18-95%-149/65. HE HAS BEEN ON ROOM AIR. LABS WERE OBTAINED. ABNORMAL LAB VALUES INCLUDE THE FOLLOWING: RBC 2.97, HGB 8.2, HCT 23.2, GLUCOSE 206, CALCIUM 8.0, ALK PHOS 205, TOTAL PROTEIN 6.3, ALBUMIN 2.8. BLOOD AND WOUND CULTURES ARE POSITIVE FOR GROWTH OF GROUP B STREP AGALACTIAE AND STAPHYLOCOCCUS AUREUS. BOTH ARE SENSITIVE TO THE ZOSYN AND ZYVOX.. HE IS CURRENTLY RECEIVING NORMAL SALINE AT 75ML/HR, ALBUMIN 25% IV DAILY, LOVENOX 40MG SC DAILY, ZYVOX 600MG PO Q12H, ZOSYN 3.375 IV TID, LANTUS 48 UNITS SC HS, HUMULIN R COVERAGE TO 40 UNITS SC BID AND 15 UNITS SC AT 1200, ZOFRAN 4MG IV Q8H PRN, THE POTASSIUM AND MAGNESIUM PROTOCOLS, AND HIS HOME MEDICATIONS WERE RESUMED. WHEN PATIENT IS READY FOR DISCHARGE, WE PLAN TO CONTINUE ON IV ANTIBIOTICS FOR AT LEAST 6 WEEKS. HE WILL NEED PHYSICAL THERAPY VISITS AT HOME. OTHERWISE, WE PLAN TO FOLLOW UP WITH AM LABS AND CONTINUE TO MONITOR. MONITORING FOOT WOUND. TIME SPENT ON CLINICAL ASSESSMENT, REVIEWING LABS AND IMAGING, DECISION MAKING, AND DOCUMENTATION GREATER THAN 45 MINUTES. - Past Medical Family Social History Past Med/Fam/Surg Hx: No changes since H&P Allergies: Allergies codeine Adverse Reaction (Verified 01/28/19 16:32) RASH - Review of Systems ROS: No change since H&P - Vital Signs and I&O's Vital Signs: Temperature 99.1 F Pulse Rate [Left] 92 Pulse Rate 85 Respiratory Rate 18 Blood Pressure [Left Arm] 149/65 Blood Pressure 172/77 O2 Sat by Pulse Oximetry 96 Intake and Output: Intake & Output 08/31/21 09/01/21 09/02/21 09/03/21 10:59 11:59 11:59 11:59 Intake Total 2995 / 2995 3730 / 3730 Output Total 1750 / 1750 2320 / 2320 Balance 1245 / 1245 1410 / 1410 - Physical Exam Oriented: Normal, Time, Person Eyes: Normal Ear: Normal Nose: Normal Throat: Normal Respiratory: Generalized, Diminished Cardiovascular: Other (Pulses are intact b/l. Cap fill immediate to the b/l digits.) : Normal Auscultation: Bowel Sounds: Normal Tenderness: Normal Skin: Wound (Right foot with the skin well coapted and the sutures intact. Skin edges macerated. Serous drainage noted. No malodor. No fluctuance. No erythema.) Musculoskeletal: Sensory Deficit (Sensation diminshed to the LE b/l.) Psychiatric: Normal Mood Description: Apathetic Affect: Quiet Speech Pattern: Clear - Laboratory and Diagnostics Result Diagrams: 09/03/21 05:26 09/03/21 05:26 Labs: 08/29/21 00:46 Blood Blood Culture - Final 08/29/21 00:40 Blood Blood Culture - Final 08/28/21 11:21 Foot - Right Wound Gram Stain - Final 08/28/21 11:21 Foot - Right Wound Culture - Final Staphylococcus Aureus 08/24/21 18:20 Foot - Right Wound Gram Stain - Final 08/24/21 18:20 Foot - Right Wound Culture - Final Strep Agalactiae - (Group B) Staphylococcus Aureus 08/25/21 11:46 Foot - Right Wound Gram Stain - Final 08/25/21 11:46 Foot - Right Wound Culture - Final Strep Agalactiae - (Group B) Staphylococcus Aureus 08/24/21 20:10 Blood Blood Culture - Final Strep Agalactiae - (Group B) 08/24/21 20:00 Blood Blood Culture - Final Staphylococcus Aureus Laboratory WBC 6.3 X10^3/uL (3.6-10.0) 09/03/21 05:26 RBC 2.97 X10^6/uL (4.7-6.0) L 09/03/21 05:26 Hgb 8.2 g/dL (13.5-18.0) L 09/03/21 05:26 Hct 23.2 % (42.0-54.0) L 09/03/21 05:26 MCV 77.8 fL (80.0-100.0) L 09/03/21 05:26 MCH 27.5 pg (27.0-34.0) 09/03/21 05:26 MCHC 35.4 g/dL (33.0-35.0) H 09/03/21 05:26 RDW 16.3 % (11.6-16.5) 09/03/21 05:26 Plt Count 373 X10^3/uL (150.0-450.0) 09/03/21 05:26 Plt Count Comment Adequate (ADEQUATE) 09/01/21 05:30 MPV 6.2 fL (7.4-11.0) L 09/03/21 05:26 Neut % (Auto) 72.5 % (42.0-75.0) 09/03/21 05:26 Lymph % (Auto) 15.9 % (21.0-51.0) L 09/03/21 05:26 [place] % (Auto) 8.9 % (0.0-13.0) 09/03/21 05:26 Eos % (Auto) 2.1 % (0.9-2.9) 09/03/21 05:26 Baso % (Auto) 0.6 % (0.2-1.0) 09/03/21 05:26 Neut # (Auto) 4.6 x10^3/uL (2.2-4.8) 09/03/21 05:26 Lymph # (Auto) 1.0 X10^3/uL (1.3-2.9) L 09/03/21 05:26 [place] # (Auto) 0.6 x10^3/uL (0.3-0.8) 09/03/21 05:26 Eos # (Auto) 0.1 x10^3/uL (0.0-0.2) 09/03/21 05:26 Baso # (Auto) 0.0 X10^3/uL (0.0-0.1) 09/03/21 05:26 Absolute Nucleated RBC 0.4 /100WBC 09/03/21 05:26 Total Counted 100 09/01/21 05:30 Neutrophils % (Manual) 56 % (39-76) 09/01/21 05:30 Band Neutrophils % 2 % (0-10) 09/01/21 05:30 Lymphocytes % (Manual) 30 % (13-43) 09/01/21 05:30 Monocytes % (Manual) 4 % (4-9) 09/01/21 05:30 Eosinophils % (Manual) 6 % (0-6) 09/01/21 05:30 Metamyelocytes % 2 09/01/21 05:30 Nucleated RBCs 2 08/30/21 03:37 Plt Morphology Comment Normal (NORMAL) 09/01/21 05:30 RBC Morphology Normal (NORMAL) 09/01/21 05:30 Sodium 140 mmol/L (136-145) 09/03/21 05:26 Corrected Sodium 143 mmol/L (136-145) 09/03/21 05:26 Potassium 3.6 mmol/L (3.5-5.1) 09/03/21 05:26 Chloride 103 mmol/L (98-107) 09/03/21 05:26 Carbon Dioxide 26.3 mmol/L (21-32) 09/03/21 05:26 BUN 12 mg/dL (7-18) 09/03/21 05:26 Creatinine 1.12 mg/dL (0.70-1.30) 09/03/21 05:26 Est GFR (MDRD) Af Amer > 60 (>60) 09/03/21 05:26 Est GFR (MDRD) Non-Af > 60 (>60) 09/03/21 05:26 Glucose 206 mg/dL (65-99) H 09/03/21 05:26 POC Glucose (mg/dL) 139 mg/dL (65-99) H 08/30/21 16:08 Calcium 8.0 mg/dL (8.5-10.1) L 09/03/21 05:26 Corrected Calcium 9.0 mg/dL (8.5-10.1) 09/03/21 05:26 Magnesium 1.8 mg/dL (1.7-2.9) 08/30/21 03:37 Total Bilirubin 0.60 mg/dL (0.2-1.0) 09/03/21 05:26 Direct Bilirubin 0.40 mg/dL (0-0.2) H 08/24/21 14:00 AST 19 Units/L (15-37) 09/03/21 05:26 ALT 50 Units/L (12-78) 09/03/21 05:26 Alkaline Phosphatase 205 Units/L (46-116) H 09/03/21 05:26 Creatine Kinase 144 Units/L (39-308) 08/24/21 14:00 CK-MB (CK-2) < 1.0 ng/mL (0-4.0) 08/24/21 14:00 CK/CKMB % Calc 0.7 % (<4) 08/24/21 14:00 Troponin I High Sens 23.4 ng/L (4.0-60.0) 08/24/21 14:00 C-Reactive Protein 71.40 mg/L (0-3.0) H 08/30/21 03:37 Total Protein 6.3 g/dL (6.4-8.2) L 09/03/21 05:26 Albumin 2.8 g/dL (3.4-5.0) L 09/03/21 05:26 Globulin 3.5 g/dL (2.5-4.5) 09/03/21 05:26 Albumin/Globulin Ratio 0.8 Ratio (1.1-2.1) L 09/03/21 05:26 TSH 3rd Generation 1.547 uIU/mL (0.358-3.74) 08/24/21 14:00 Specimen Type Clean catch urine 09/02/21 21:25 Urine Color Yellow (YELLOW) 09/02/21 21:25 Urine Appearance Clear (CLEAR) 09/02/21 21:25 Urine pH 6.0 (5.0 - 8.0) 09/02/21 21:25 Ur Specific [place] 1.015 (1.000-1.030) 09/02/21 21:25 Urine Protein 1+ (NEGATIVE) 09/02/21 21:25 Urine Glucose (UA) 2+ (NEGATIVE) 09/02/21 21:25 Urine Ketones Negative (NEGATIVE) 09/02/21 21:25 Urine Occult Blood 2+ (NEGATIVE) 09/02/21 21:25 Urine Nitrite Negative (NEGATIVE) 09/02/21 21:25 Urine Bilirubin Negative (NEGATIVE) 09/02/21 21:25 Urine Urobilinogen Normal (NORMAL) 09/02/21 21:25 Ur Leukocyte Esterase Negative (NEGATIVE) 09/02/21 21:25 Urine RBC 3-5 /HPF (0-3) A 09/02/21 21:25 Urine WBC None seen /HPF (0-5) 09/02/21 21:25 Ur Squamous Epith Cells Rare /HPF (NEGATIVE) 09/02/21 21:25 Urine Bacteria Negative /HPF (NEGATIVE) 09/02/21 21:25 Ur Culture Indicated? No/not indicated 09/02/21 21:25 SARS CoV-2 RNA Rapid ANIBAL Negative (NEGATIVE) 08/24/21 15:05 Tissue Pathology To follow 08/28/21 11:15 - Plan (1) Osteomyelitis Status: Suspected Qualifiers: Osteomyelitis type: unspecified type Osteomyelitis location: foot Laterality: right Qualified Code(s): M86.9 - Osteomyelitis, unspecified (2) Cellulitis of right foot Status: Acute Plan: IV FLUIDS, ANTIBIOTICS, ALBUMIN, WOUND CARE, NAUSEA CONTROL, BLOOD GLUCOSE CONTROL AND MONITORING (3) Abscess of right foot Status: Acute (4) Sepsis Status: Acute Qualifiers: Sepsis type: methicillin susceptible Staphylococcus aureus Sepsis acute organ dysfunction status: unspecified Qualified Code(s): A41.01 - Sepsis due to Methicillin susceptible Staphylococcus aureus (5) Pneumonia Status: Acute Qualifiers: Pneumonia type: due to unspecified organism Laterality: right Lung location: middle lobe of lung Qualified Code(s): J18.9 - Pneumonia, unspecified organism (6) Dehydration Status: Acute (7) Hypoalbuminemia Status: Acute (8) Hyponatremia Status: Resolved (9) Hypertension Status: Chronic Qualifiers: Hypertension type: primary hypertension Qualified Code(s): I10 - Essential (primary) hypertension (10) Diabetic neuropathy Status: Chronic Qualifiers: Diabetes mellitus type: type 2 Diabetes mellitus complication detail: with other neurological complication Qualified Code(s): E11.49 - Type 2 diabetes mellitus with other diabetic neurological complication (11) Diabetes mellitus Status: Chronic Qualifiers: Diabetes mellitus type: type 2 Diabetes mellitus director long term care insulin use: with senior living use Diabetes mellitus complication status: with hyperglycemia Qualified Code(s): E11.65 - Type 2 diabetes mellitus with hyperglycemia; Z79.4 - [facility] (current) use of insulin
[2021-09-03] MEDS: CRESTOR TAB 10 MG PO SCH (20:38)
[2021-09-03] MEDS: NEURONTIN CAP 100 MG PO SCH (20:39)
[2021-09-03] MEDS: TYLENOL 325 MG TAB PO PRN (20:43)
[2021-09-03] MEDS: FLOMAX PO SCH (20:44)
[2021-09-03] MEDS: SNACK - Diabetic Appropriate PO SCH (20:46)
[2021-09-03] MEDS: ZOFRAN INJ 4 MG VIAL IVP PRN (20:46)
[2021-09-03] MEDS: LANTUS SC SCH (23:02)
[2021-09-04] MEDS: NS 1,000 ML IV 1,000 ML IV SCH ×4 (04:09→17:20)
[2021-09-04] MEDS: ULTRAM PO PRN (04:25)
[2021-09-04] MEDS: ZOSYN VIAL 3.375 GRAMS 3.375 G in NS 100 ML IV 100 ML IV SCH (06:05)
--- NOTE | 2021-09-04 06:05 | RAD ---
HISTORYShortness of breathSTUDYChest AP [id number] e is a right-sided PICC line in good position. Heart size is normal. The lungs appear free of acute infiltrates on today's examination. No pleural effusions are identified. Bony thorax is unremarkable.IMPRESSIONLungs now clearElectronically signed by: ESCOBAR HOLLOWAY (Sep 04, 2021 06:04:46)
[2021-09-04 06:53] LABS: BASOPHILS % (AUTO) 0.4 % (0.2-1.0); EOSINOPHILS # (AUTO) 0.1 x10^3/uL (0.0-0.2); EOSINOPHILS % (AUTO) 1.8 % (0.9-2.9); LYMPHOCYTES % (AUTO) 19.8 % (21.0-51.0); MEAN CORPUSCULAR HEMOGLOBIN 27.3 pg (27.0-34.0); MEAN CORPUSCULAR HGB CONC 34.7 g/dL (33.0-35.0); MEAN CORPUSCULAR VOLUME 78.8 fL (80.0-100.0); MEAN PLATELET VOLUME 6.2 fL (7.4-11.0); MONOCYTES # (AUTO) 0.5 x10^3/uL (0.3-0.8); MONOCYTES % (AUTO) 9.4 % (0.0-13.0); NEUTROPHILS # (AUTO) 3.5 x10^3/uL (2.2-4.8); NEUTROPHILS % (AUTO) 68.6 % (42.0-75.0); RED BLOOD COUNT 2.92 X10^6/uL (4.7-6.0); RED CELL DISTRIBUTION WIDTH 16.4 % (11.6-16.5); WHITE BLOOD COUNT 5.1 X10^3/uL (3.6-10.0)
[2021-09-04 07:08] LABS: ALANINE AMINOTRANSFERASE 48 Units/L (12-78); ALBUMIN 2.9 g/dL (3.4-5.0); ALKALINE PHOSPHATASE 185 Units/L (46-116); ASPARTATE AMINO TRANSFERASE 26 Units/L (15-37); BLOOD UREA NITROGEN 10 mg/dL (7-18); CALCIUM 7.9 mg/dL (8.5-10.1); CARBON DIOXIDE 24.1 mmol/L (21-32); CHLORIDE 105 mmol/L (98-107); COR CA(FOR HYPOALB) 8.8 mg/dL (8.5-10.1); COR NA(FOR HYPERGLY) 142 mmol/L (136-145); CREATININE 1.08 mg/dL (0.70-1.30); SODIUM 141 mmol/L (136-145); TOTAL PROTEIN 6.4 g/dL (6.4-8.2); eGFR NON BLACK RACES > 60 (>60)
[2021-09-04] MEDS ORDERED: ALLEGRA ONE (08:18)
[2021-09-04] MEDS: COZAAR PO SCH (08:47)
[2021-09-04] MEDS: ALBUMIN HUMAN 25%- 100 ML 100 ML IV SCH (08:47)
[2021-09-04] MEDS: VITAMIN B-12 PO SCH (08:47)
[2021-09-04] MEDS: LOVENOX INJ 40 MG SYR SC SCH (08:48)
[2021-09-04] MEDS: PEPCID TAB 40 MG PO SCH ×2 (08:50→20:44)
[2021-09-04] MEDS: VSL#3 PO SCH (08:50)
[2021-09-04] MEDS: MAG-OX TAB PO SCH (08:51)
[2021-09-04] MEDS: ALLEGRA PO SCH (08:51)
[2021-09-04] MEDS: REGLAN TAB 10 MG PO SCH ×4 (08:51→20:44)
[2021-09-04] MEDS: SYNTHROID 75 mcg TAB PO SCH (08:51)
[2021-09-04] MEDS: VITAMIN D3 125 mcg (5,000 UNITS) PO SCH (08:52)
[2021-09-04] MEDS: ZINC SULFATE PO SCH (08:52)
[2021-09-04] MEDS: LOPID PO SCH ×2 (08:52→20:44)
[2021-09-04] MEDS: TOPROL XL PO SCH (08:52)
[2021-09-04] MEDS: ZYVOX TAB 600 MG PO SCH ×2 (08:52→20:45)
[2021-09-04] MEDS: PROTONIX TAB 40 MG PO SCH ×2 (08:53→20:44)
[2021-09-04] MEDS: DUONEB 0.5 MG/3 MG (3 mL) NEB SCH ×4 (09:00→20:03)
[2021-09-04] MEDS: SAXAGLIPTIN 5 MG PO SCH (09:03)
[2021-09-04] MEDS: NovoLIN R (or HumuLIN R) SUBCUT SCH ×3 (09:03→20:44)
[2021-09-04] MEDS: LEVAQUIN PREMIX IV 750 MG 750 MG/150 ML BAG IV SCH (10:57)
[2021-09-04] MEDS: K-DUR TAB 20 MEQ PO PRN (17:21)
[2021-09-04] MEDS: FLOMAX PO SCH (20:44)
[2021-09-04] MEDS: NEURONTIN CAP 100 MG PO SCH (20:44)
[2021-09-04] MEDS: CRESTOR TAB 10 MG PO SCH (20:44)
[2021-09-04] MEDS: SNACK - Diabetic Appropriate PO SCH (20:44)
[2021-09-04] MEDS: MELATONIN PO PRN (20:45)
[2021-09-05] MEDS: LANTUS SC SCH ×2 (00:10→22:06)
[2021-09-05] MEDS: NS 1,000 ML IV 1,000 ML IV SCH ×2 (04:24→14:02)
[2021-09-05 06:39] LABS: BASOPHILS % (AUTO) 0.9 % (0.2-1.0); EOSINOPHILS # (AUTO) 0.1 x10^3/uL (0.0-0.2); EOSINOPHILS % (AUTO) 2.7 % (0.9-2.9); HEMATOCRIT 22.7 % (42.0-54.0); HEMOGLOBIN 7.7 g/dL (13.5-18.0); LYMPHOCYTES # (AUTO) 1.1 X10^3/uL (1.3-2.9); MEAN CORPUSCULAR HEMOGLOBIN 26.6 pg (27.0-34.0); MEAN CORPUSCULAR HGB CONC 34.1 g/dL (33.0-35.0); MEAN PLATELET VOLUME 6.2 fL (7.4-11.0); MONOCYTES # (AUTO) 0.4 x10^3/uL (0.3-0.8); MONOCYTES % (AUTO) 9.6 % (0.0-13.0); NEUTROPHILS # (AUTO) 2.3 x10^3/uL (2.2-4.8); NEUTROPHILS % (AUTO) 58.8 % (42.0-75.0); RED BLOOD COUNT 2.91 X10^6/uL (4.7-6.0); RED CELL DISTRIBUTION WIDTH 16.5 % (11.6-16.5)
[2021-09-05 07:02] LABS: ALANINE AMINOTRANSFERASE 42 Units/L (12-78); ALBUMIN 2.9 g/dL (3.4-5.0); ALKALINE PHOSPHATASE 164 Units/L (46-116); ASPARTATE AMINO TRANSFERASE 19 Units/L (15-37); BLOOD UREA NITROGEN 10 mg/dL (7-18); CALCIUM 8.3 mg/dL (8.5-10.1); CARBON DIOXIDE 25.3 mmol/L (21-32); CHLORIDE 105 mmol/L (98-107); COR CA(FOR HYPOALB) 9.2 mg/dL (8.5-10.1); COR NA(FOR HYPERGLY) 143 mmol/L (136-145); CREATININE 0.95 mg/dL (0.70-1.30); SODIUM 142 mmol/L (136-145); TOTAL PROTEIN 6.2 g/dL (6.4-8.2); eGFR NON BLACK RACES > 60 (>60)
--- NOTE | 2021-09-05 08:31 | PCM.PROG ---
Progress Note - Progress Note for Day of Date of Exam: 09/05/21 - Subjective Subjective: IS CURRENTLY BEING TREATED FOR OSTEOMYLITIS TO RIGHT FOOT, CELLULITIS, SEPSIS, AND PNEUMONIA. HE HAS A PMH OF DM II, HTN, HYPERLIPIDEMIA, RIGHT CHARCOT FOOT, DIABETIC NEUROPATHY, AND CHOLECYSTECTOMY. HE IS S/P I&D AND WASHOUT TO BONE, DELAYED PRIMARY CLOSURE OF WOUND, DEEP BONE BIOPSY OF RIGHT FOOT, ANTIBIOTIC BEAD APPLICATION, POSTERIOR SPLINT APPLICATION BY . ANTIBIOTIC BEADS WERE REMOVED YESTERDAY AND PACKING WAS CHANGED BY . TODAY, HE IS ALERT AND ORIENTED, LYING IN BED ON MORNING ROUNDS. HE DENIES NAUSEA OR VOMITING. HE DOES CONTINUE WITH GENERALIZED WEAKNESS. HE DENIES PAIN UPON ROUNDS. ON EXAMINATION, HEART IS REGULAR IN RATE AND RHYTHM. BILATERAL [place] GS NOTED WITH DIMINISHED LUNG SOUNDS THROUGHOUT. ABDOMEN IS ROUND, SOFT, AND NON-TENDER WITH NORMAL BOWEL SOUNDS NOTED IN ALL QUADRANTS. RIGHT FOOT NOTED WITH POSTERIOR SPLINT. PICC LINE NOTED TO RIGHT UPPER ARM. VITALS THIS MORNING ARE: 98.5-86-20-94%-162/71. HE HAS BEEN ON ROOM AIR. LABS WERE OBTAINED. ABNORMAL LAB VALUES INCLUDE THE FOLLOWING: RBC 2.92, HGB 8.0, HCT 23.0, GLUCOSE 152, CALCIUM 7.9, ALK PHOS 185, ALBUMIN 2.9. BLOOD AND WOUND CULTURES ARE POSITIVE FOR GROWTH OF GROUP B STREP AGALACTIAE AND STAPHYLOCOCCUS AUREUS. BOTH ARE SENSITIVE TO THE ZOSYN AND ZYVOX. HE IS CURRENTLY RECEIVING NORMAL SALINE AT 75ML/HR, ALBUMIN 25% IV DAILY, LOVENOX 40MG SC DAILY, ZYVOX 600MG PO Q12H, ZOSYN 3.375 IV TID, LANTUS 48 UNITS SC HS, HUMULIN R COVERAGE TO 40 UNITS SC BID AND 15 UNITS SC AT 1200, ZOFRAN 4MG IV Q8H PRN, THE POTASSIUM AND MAGNESIUM PROTOCOLS, AND HIS HOME MEDICATIONS WERE RESUMED. WHEN PATIENT IS READY FOR DISCHARGE, WE PLAN TO CONTINUE ON IV ANTIBIOTICS FOR AT LEAST 6 WEEKS. WE WILL DISCONTINUE THE ZOSYN AND ADD LEVAQUIN TODAY, THIS IS WHAT HE WILL RECEIVE AFTER DISCHARGE. HE WILL NEED PHYSICAL THERAPY VISITS AT HOME. OTHERWISE, WE PLAN TO FOLLOW UP WITH AM LABS AND CONTINUE TO MONITOR. MONITORING FOOT WOUND. TIME SPENT ON CLINICAL ASSESSMENT, REVIEWING LABS AND IMAGING, DECISION MAKING, AND DOCUMENTATION GREATER THAN 45 MINUTES. - Past Medical Family Social History Past Med/Fam/Surg Hx: No changes since H&P Allergies: Allergies codeine Adverse Reaction (Verified 01/28/19 16:32) RASH - Review of Systems ROS: No change since H&P - Vital Signs and I&O's Vital Signs: Temperature 97.9 F Pulse Rate [Left] 81 Pulse Rate 84 Respiratory Rate 20 Blood Pressure [Left Arm] 138/70 Blood Pressure 172/77 O2 Sat by Pulse Oximetry 94 Intake and Output: Intake & Output 09/02/21 09/03/21 09/04/21 09/05/21 11:59 11:59 11:59 11:59 Intake Total 2995 / 2995 3730 / 3730 3555 / 3555 4345 / 4345 Output Total 1750 / 1750 2320 / 2320 900 / 900 2185 / 2185 Balance 1245 / 1245 1410 / 1410 2655 / 2655 2160 / 2160 - Physical Exam Oriented: Normal, Time, Person Eyes: Normal Ear: Normal Nose: Normal Throat: Normal Respiratory: Generalized, Diminished Cardiovascular: Other (Pulses are intact b/l. Cap fill immediate to the b/l digits.) : Normal Auscultation: Bowel Sounds: Normal Tenderness: Normal Skin: Wound (Right foot with the skin well coapted and the sutures intact. Skin edges macerated. Serous drainage noted. No malodor. No fluctuance. No erythema.) Musculoskeletal: Sensory Deficit (Sensation diminshed to the LE b/l.) Psychiatric: Normal Mood Description: Apathetic Affect: Quiet Speech Pattern: Clear - Laboratory and Diagnostics Result Diagrams: 09/05/21 05:38 09/05/21 05:38 Labs: 08/29/21 00:46 Blood Blood Culture - Final 08/29/21 00:40 Blood Blood Culture - Final 08/28/21 11:21 Foot - Right Wound Gram Stain - Final 08/28/21 11:21 Foot - Right Wound Culture - Final Staphylococcus Aureus 08/24/21 18:20 Foot - Right Wound Gram Stain - Final 08/24/21 18:20 Foot - Right Wound Culture - Final Strep Agalactiae - (Group B) Staphylococcus Aureus 08/25/21 11:46 Foot - Right Wound Gram Stain - Final 08/25/21 11:46 Foot - Right Wound Culture - Final Strep Agalactiae - (Group B) Staphylococcus Aureus 08/24/21 20:10 Blood Blood Culture - Final Strep Agalactiae - (Group B) 08/24/21 20:00 Blood Blood Culture - Final Staphylococcus Aureus Laboratory WBC 4.0 X10^3/uL (3.6-10.0) 09/05/21 05:38 RBC 2.91 X10^6/uL (4.7-6.0) L 09/05/21 05:38 Hgb 7.7 g/dL (13.5-18.0) L 09/05/21 05:38 Hct 22.7 % (42.0-54.0) L 09/05/21 05:38 MCV 78.0 fL (80.0-100.0) L 09/05/21 05:38 MCH 26.6 pg (27.0-34.0) L 09/05/21 05:38 MCHC 34.1 g/dL (33.0-35.0) 09/05/21 05:38 RDW 16.5 % (11.6-16.5) 09/05/21 05:38 Plt Count 397 X10^3/uL (150.0-450.0) 09/05/21 05:38 Plt Count Comment Adequate (ADEQUATE) 09/01/21 05:30 MPV 6.2 fL (7.4-11.0) L 09/05/21 05:38 Neut % (Auto) 58.8 % (42.0-75.0) 09/05/21 05:38 Lymph % (Auto) 28.0 % (21.0-51.0) 09/05/21 05:38 [place] % (Auto) 9.6 % (0.0-13.0) 09/05/21 05:38 Eos % (Auto) 2.7 % (0.9-2.9) 09/05/21 05:38 Baso % (Auto) 0.9 % (0.2-1.0) 09/05/21 05:38 Neut # (Auto) 2.3 x10^3/uL (2.2-4.8) 09/05/21 05:38 Lymph # (Auto) 1.1 X10^3/uL (1.3-2.9) L 09/05/21 05:38 [place] # (Auto) 0.4 x10^3/uL (0.3-0.8) 09/05/21 05:38 Eos # (Auto) 0.1 x10^3/uL (0.0-0.2) 09/05/21 05:38 Baso # (Auto) 0.0 X10^3/uL (0.0-0.1) 09/05/21 05:38 Absolute Nucleated RBC 0.1 /100WBC 09/05/21 05:38 Total Counted 100 09/01/21 05:30 Neutrophils % (Manual) 56 % (39-76) 09/01/21 05:30 Band Neutrophils % 2 % (0-10) 09/01/21 05:30 Lymphocytes % (Manual) 30 % (13-43) 09/01/21 05:30 Monocytes % (Manual) 4 % (4-9) 09/01/21 05:30 Eosinophils % (Manual) 6 % (0-6) 09/01/21 05:30 Metamyelocytes % 2 09/01/21 05:30 Nucleated RBCs 2 08/30/21 03:37 Plt Morphology Comment Normal (NORMAL) 09/01/21 05:30 RBC Morphology Normal (NORMAL) 09/01/21 05:30 Sodium 142 mmol/L (136-145) 09/05/21 05:38 Corrected Sodium 143 mmol/L (136-145) 09/05/21 05:38 Potassium 3.8 mmol/L (3.5-5.1) 09/05/21 05:38 Chloride 105 mmol/L (98-107) 09/05/21 05:38 Carbon Dioxide 25.3 mmol/L (21-32) 09/05/21 05:38 BUN 10 mg/dL (7-18) 09/05/21 05:38 Creatinine 0.95 mg/dL (0.70-1.30) 09/05/21 05:38 Est GFR (MDRD) Af Amer > 60 (>60) 09/05/21 05:38 Est GFR (MDRD) Non-Af > 60 (>60) 09/05/21 05:38 Glucose 156 mg/dL (65-99) H 09/05/21 05:38 POC Glucose (mg/dL) 139 mg/dL (65-99) H 08/30/21 16:08 Calcium 8.3 mg/dL (8.5-10.1) L 09/05/21 05:38 Corrected Calcium 9.2 mg/dL (8.5-10.1) 09/05/21 05:38 Magnesium 1.8 mg/dL (1.7-2.9) 08/30/21 03:37 Total Bilirubin 0.60 mg/dL (0.2-1.0) 09/05/21 05:38 Direct Bilirubin 0.40 mg/dL (0-0.2) H 08/24/21 14:00 AST 19 Units/L (15-37) 09/05/21 05:38 ALT 42 Units/L (12-78) 09/05/21 05:38 Alkaline Phosphatase 164 Units/L (46-116) H 09/05/21 05:38 Creatine Kinase 144 Units/L (39-308) 08/24/21 14:00 CK-MB (CK-2) < 1.0 ng/mL (0-4.0) 08/24/21 14:00 CK/CKMB % Calc 0.7 % (<4) 08/24/21 14:00 Troponin I High Sens 23.4 ng/L (4.0-60.0) 08/24/21 14:00 C-Reactive Protein 71.40 mg/L (0-3.0) H 08/30/21 03:37 Total Protein 6.2 g/dL (6.4-8.2) L 09/05/21 05:38 Albumin 2.9 g/dL (3.4-5.0) L 09/05/21 05:38 Globulin 3.3 g/dL (2.5-4.5) 09/05/21 05:38 Albumin/Globulin Ratio 0.9 Ratio (1.1-2.1) L 09/05/21 05:38 TSH 3rd Generation 1.547 uIU/mL (0.358-3.74) 08/24/21 14:00 Specimen Type Clean catch urine 09/02/21 21:25 Urine Color Yellow (YELLOW) 09/02/21 21:25 Urine Appearance Clear (CLEAR) 09/02/21 21:25 Urine pH 6.0 (5.0 - 8.0) 09/02/21 21:25 Ur Specific [place] 1.015 (1.000-1.030) 09/02/21 21: Urine Protein 1+ (NEGATIVE) 09/02/21 21:25 Urine Glucose (UA) 2+ (NEGATIVE) 09/02/21 21: Urine Ketones Negative (NEGATIVE) 09/02/21 21: Urine Occult Blood 2+ (NEGATIVE) 09/02/21 21: Urine Nitrite Negative (NEGATIVE) 09/02/21 21: Urine Bilirubin Negative (NEGATIVE) 09/02/21 21: Urine Urobilinogen Normal (NORMAL) 09/02/21 21: Ur Leukocyte Esterase Negative (NEGATIVE) 09/02/21 21: Urine RBC 3-5 /HPF (0-3) A 09/02/21 21: Urine WBC None seen /HPF (0-5) 09/02/21 21: Ur Squamous Epith Cells Rare /HPF (NEGATIVE) 09/02/21 21: Urine Bacteria Negative /HPF (NEGATIVE) 09/02/21 21:25 Ur Culture Indicated? No/not indicated 09/02/21 21:25 SARS CoV-2 RNA Rapid ANIBAL Negative (NEGATIVE) 08/24/21 15:05 Tissue Pathology To follow 08/28/21 11:15 - Plan (1) Osteomyelitis Status: Suspected Qualifiers: Osteomyelitis type: unspecified type Osteomyelitis location: foot Laterality: right Qualified Code(s): M86.9 - Osteomyelitis, unspecified Plan: IV FLUIDS, ANTIBIOTICS, ALBUMIN, WOUND CARE, NAUSEA CONTROL, BLOOD GLUCOSE CONTROL AND MONITORING. MANAGEMENT OF WOUND BY [employer] APPELLATE CLERK. (2) Cellulitis of right foot Status: Acute (3) Sepsis Status: Acute Qualifiers: Sepsis type: methicillin susceptible Staphylococcus aureus Sepsis acute organ dysfunction status: unspecified Qualified Code(s): A41.01 - Sepsis due to Methicillin susceptible Staphylococcus aureus (4) Abscess of right foot Status: Resolved (5) Pneumonia Status: Acute Qualifiers: Pneumonia type: due to unspecified organism Laterality: right Lung location: middle lobe of lung Qualified Code(s): J18.9 - Pneumonia, unspecified organism (6) Dehydration Status: Acute (7) Hypoalbuminemia Status: Resolved (8) Hyponatremia Status: Resolved (9) Hypertension Status: Chronic Qualifiers: Hypertension type: primary hypertension Qualified Code(s): I10 - Essential (primary) hypertension (10) Diabetic neuropathy Status: Chronic Qualifiers: Diabetes mellitus type: type 2 Diabetes mellitus complication detail: with other neurological complication Qualified Code(s): E11.49 - Type 2 diabetes mellitus with other diabetic neurological complication (11) Diabetes mellitus Status: Chronic Qualifiers: Diabetes mellitus type: type 2 Diabetes mellitus [facility] insulin use: with vermin exterminator use Diabetes mellitus complication status: with hyperglycemia Qualified Code(s): E11.65 - Type 2 diabetes mellitus with hyperglycemia; Z79.4 - retirement (current) use of insulin
[2021-09-05] MEDS ORDERED: ALLEGRA ONE (09:10)
[2021-09-05] MEDS: DUONEB 0.5 MG/3 MG (3 mL) NEB SCH ×4 (09:21→21:01)
[2021-09-05] MEDS: LEVAQUIN PREMIX IV 750 MG 750 MG/150 ML BAG IV SCH (09:24)
[2021-09-05] MEDS: REGLAN TAB 10 MG PO SCH ×4 (09:26→21:15)
[2021-09-05] MEDS: VITAMIN B-12 PO SCH (09:26)
[2021-09-05] MEDS: ZYVOX TAB 600 MG PO SCH ×2 (09:26→21:15)
[2021-09-05] MEDS: ZINC SULFATE PO SCH (09:26)
[2021-09-05] MEDS: TOPROL XL PO SCH (09:26)
[2021-09-05] MEDS: PROTONIX TAB 40 MG PO SCH ×2 (09:27→21:15)
[2021-09-05] MEDS: COZAAR PO SCH (09:27)
[2021-09-05] MEDS: VSL#3 PO SCH (09:27)
[2021-09-05] MEDS: SYNTHROID 75 mcg TAB PO SCH (09:27)
[2021-09-05] MEDS: LOPID PO SCH ×2 (09:27→21:15)
[2021-09-05] MEDS: PEPCID TAB 40 MG PO SCH ×2 (09:28→21:15)
[2021-09-05] MEDS: MAG-OX TAB PO SCH (09:28)
[2021-09-05] MEDS: VITAMIN D3 125 mcg (5,000 UNITS) PO SCH (09:29)
[2021-09-05] MEDS: ALLEGRA PO SCH (09:29)
[2021-09-05] MEDS: LOVENOX INJ 40 MG SYR SC SCH (09:40)
[2021-09-05] MEDS: NovoLIN R (or HumuLIN R) SUBCUT SCH ×3 (09:40→22:02)
[2021-09-05] MEDS: SAXAGLIPTIN 5 MG PO SCH (09:42)
[2021-09-05] MEDS: ALBUMIN HUMAN 25%- 100 ML 100 ML IV SCH (11:00)
[2021-09-05] MEDS: HEMOCYTE-PLUS PO SCH (11:30)
--- NOTE | 2021-09-05 20:12 | PCM.PROG ---
Progress Note Progress Note for Day of Date of Exam: 09/05/21 Subjective Subjective: Mr. Lynch is a 61 yo male with a PMHx of DM. He is s/p right foot debridement with bone biopsy. Dressings are c/d/i. He is doing well with no pain. He denies any f/c/n/v/sob/calf pain. Past Medical Family Social History Past Med/Fam/Surg Hx: No changes since H&P Allergies: Allergies codeine Adverse Reaction (Verified 01/28/19 16:32) RASH Review of Systems ROS: No change since H&P Vital Signs and I&O's Vital Signs: Temperature 98.2 F Pulse Rate [Left] 88 Pulse Rate 87 Respiratory Rate 18 Blood Pressure [Left Arm] 160/70 Blood Pressure 172/77 O2 Sat by Pulse Oximetry 93 Intake and Output: Intake & Output 09/02/21 09/03/21 09/04/21 09/05/21 23:59 23:59 23:59 23:59 Intake Total 2770 / 2770 3705 / 3705 3495 / 3495 2780 / 2780 Output Total 1860 / 1860 1760 / 1760 725 / 725 2260 / 2260 Balance 910 / 910 1945 / 1945 2770 / 2770 520 / 520 Physical Exam Oriented: Normal, Time and Person Eyes: Normal Ear: Normal Nose: Normal Throat: Normal Respiratory: Generalized and Diminished Cardiovascular: Other (Pulses are intact b/l. Cap fill immediate to the b/l digits. ) : Normal Auscultation: Bowel Sounds: Normal Tenderness: Normal Skin: Wound (Right foot with the skin well coapted and the sutures intact. Skin edges mildly macerated. Serous drainage noted. No malodor. No fluctuance. No erythema.) Musculoskeletal: Sensory Deficit (Sensation diminshed to the LE b/l.) Psychiatric: Normal Mood Description: Apathetic Affect: Quiet Speech Pattern: Clear Laboratory and Diagnostics Result Diagrams: 09/05/21 05:38 09/05/21 05:38 Labs: 08/29/21 00:46 Blood Blood Culture - Final 08/29/21 00:40 Blood Blood Culture - Final 08/28/21 11:21 Foot - Right Wound Gram Stain - Final 08/28/21 11:21 Foot - Right Wound Culture - Final Staphylococcus Aureus 08/24/21 18:20 Foot - Right Wound Gram Stain - Final 08/24/21 18:20 Foot - Right Wound Culture - Final Strep Agalactiae - (Group B) Staphylococcus Aureus 08/25/21 11:46 Foot - Right Wound Gram Stain - Final 08/25/21 11:46 Foot - Right Wound Culture - Final Strep Agalactiae - (Group B) Staphylococcus Aureus 08/24/21 20:10 Blood Blood Culture - Final Strep Agalactiae - (Group B) 08/24/21 20:00 Blood Blood Culture - Final Staphylococcus Aureus Laboratory WBC 4.0 X10^3/uL (3.6-10.0) 09/05/21 05:38 RBC 2.91 X10^6/uL (4.7-6.0) L 09/05/21 05:38 Hgb 7.7 g/dL (13.5-18.0) L 09/05/21 05:38 Hct 22.7 % (42.0-54.0) L 09/05/21 05:38 MCV 78.0 fL (80.0-100.0) L 09/05/21 05:38 MCH 26.6 pg (27.0-34.0) L 09/05/21 05:38 MCHC 34.1 g/dL (33.0-35.0) 09/05/21 05:38 RDW 16.5 % (11.6-16.5) 09/05/21 05:38 Plt Count 397 X10^3/uL (150.0-450.0) 09/05/21 05:38 Plt Count Comment Adequate (ADEQUATE) 09/01/21 05:30 MPV 6.2 fL (7.4-11.0) L 09/05/21 05:38 Neut % (Auto) 58.8 % (42.0-75.0) 09/05/21 05:38 Lymph % (Auto) 28.0 % (21.0-51.0) 09/05/21 05:38 [place] % (Auto) 9.6 % (0.0-13.0) 09/05/21 05:38 Eos % (Auto) 2.7 % (0.9-2.9) 09/05/21 05:38 Baso % (Auto) 0.9 % (0.2-1.0) 09/05/21 05:38 Neut # (Auto) 2.3 x10^3/uL (2.2-4.8) 09/05/21 05:38 Lymph # (Auto) 1.1 X10^3/uL (1.3-2.9) L 09/05/21 05:38 [place] # (Auto) 0.4 x10^3/uL (0.3-0.8) 09/05/21 05:38 Eos # (Auto) 0.1 x10^3/uL (0.0-0.2) 09/05/21 05:38 Baso # (Auto) 0.0 X10^3/uL (0.0-0.1) 09/05/21 05:38 Absolute Nucleated RBC 0.1 /100WBC 09/05/21 05:38 Total Counted 100 09/01/21 05:30 Neutrophils % (Manual) 56 % (39-76) 09/01/21 05:30 Band Neutrophils % 2 % (0-10) 09/01/21 05:30 Lymphocytes % (Manual) 30 % (13-43) 09/01/21 05:30 Monocytes % (Manual) 4 % (4-9) 09/01/21 05:30 Eosinophils % (Manual) 6 % (0-6) 09/01/21 05:30 Metamyelocytes % 2 09/01/21 05:30 Nucleated RBCs 2 08/30/21 03:37 Plt Morphology Comment Normal (NORMAL) 09/01/21 05:30 RBC Morphology Normal (NORMAL) 09/01/21 05:30 Sodium 142 mmol/L (136-145) 09/05/21 05:38 Corrected Sodium 143 mmol/L (136-145) 09/05/21 05:38 Potassium 3.8 mmol/L (3.5-5.1) 09/05/21 05:38 Chloride 105 mmol/L (98-107) 09/05/21 05:38 Carbon Dioxide 25.3 mmol/L (21-32) 09/05/21 05:38 BUN 10 mg/dL (7-18) 09/05/21 05:38 Creatinine 0.95 mg/dL (0.70-1.30) 09/05/21 05:38 Est GFR (MDRD) Af Amer > 60 (>60) 09/05/21 05:38 Est GFR (MDRD) Non-Af > 60 (>60) 09/05/21 05:38 Glucose 156 mg/dL (65-99) H 09/05/21 05:38 POC Glucose (mg/dL) 139 mg/dL (65-99) H 08/30/21 16:08 Calcium 8.3 mg/dL (8.5-10.1) L 09/05/21 05:38 Corrected Calcium 9.2 mg/dL (8.5-10.1) 09/05/21 05:38 Magnesium 1.8 mg/dL (1.7-2.9) 08/30/21 03:37 Total Bilirubin 0.60 mg/dL (0.2-1.0) 09/05/21 05:38 Direct Bilirubin 0.40 mg/dL (0-0.2) H 08/24/21 14:00 AST 19 Units/L (15-37) 09/05/21 05:38 ALT 42 Units/L (12-78) 09/05/21 05:38 Alkaline Phosphatase 164 Units/L (46-116) H 09/05/21 05:38 Creatine Kinase 144 Units/L (39-308) 08/24/21 14:00 CK-MB (CK-2) < 1.0 ng/mL (0-4.0) 08/24/21 14:00 CK/CKMB % Calc 0.7 % (<4) 08/24/21 14:00 Troponin I High Sens 23.4 ng/L (4.0-60.0) 08/24/21 14:00 C-Reactive Protein 71.40 mg/L (0-3.0) H 08/30/21 03:37 Total Protein 6.2 g/dL (6.4-8.2) L 09/05/21 05:38 Albumin 2.9 g/dL (3.4-5.0) L 09/05/21 05:38 Globulin 3.3 g/dL (2.5-4.5) 09/05/21 05:38 Albumin/Globulin Ratio 0.9 Ratio (1.1-2.1) L 09/05/21 05:38 TSH 3rd Generation 1.547 uIU/mL (0.358-3.74) 08/24/21 14:00 Specimen Type Clean catch urine 09/02/21 21:25 Urine Color Yellow (YELLOW) 09/02/21 21: Urine Appearance Clear (CLEAR) 09/02/21 21: Urine pH 6.0 (5.0 - 8.0) 09/02/21 21:25 Ur Specific [place] 1.015 (1.000-1.030) 09/02/21 21: Urine Protein 1+ (NEGATIVE) 09/02/21 21: Urine Glucose (UA) 2+ (NEGATIVE) 09/02/21 21: Urine Ketones Negative (NEGATIVE) 09/02/21 21: Urine Occult Blood 2+ (NEGATIVE) 09/02/21 21: Urine Nitrite Negative (NEGATIVE) 09/02/21 21: Urine Bilirubin Negative (NEGATIVE) 09/02/21 21: Urine Urobilinogen Normal (NORMAL) 09/02/21 21: Ur Leukocyte Esterase Negative (NEGATIVE) 09/02/21 21: Urine RBC 3-5 /HPF (0-3) A 09/02/21 21:25 Urine WBC None seen /HPF (0-5) 09/02/21 21:25 Ur Squamous Epith Cells Rare /HPF (NEGATIVE) 09/02/21 21:25 Urine Bacteria Negative /HPF (NEGATIVE) 09/02/21 21:25 Ur Culture Indicated? No/not indicated 09/02/21 21:25 SARS CoV-2 RNA Rapid ANIBAL Negative (NEGATIVE) 08/24/21 15:05 Tissue Pathology To follow 08/28/21 11:15 Plan (1) Osteomyelitis: Status: Suspected Qualifiers: Osteomyelitis type: unspecified type Osteomyelitis location: foot Laterality: right Qualified Code(s): M86.9 - Osteomyelitis, unspecified Plan: Mr. Lynch is a 61 yo male with DM , Right charcot foot. He is s/p right foot washout with placement of abx bead and dpc. He is with VSS and NAD. Wound is less macerated today. Antibiotic beads removed today without issues. Bone biopsy was negative for osteomyelitis. Plan: Strict NWB on the right Wound packed with plain packing and dressed with 4x4, cast padding and posterior splint with ana maria. He will need to do this dressing change every other day and may supplies or home health for assistance. Elevate x2 pillows He is to follow up with Dr. Guevara in [facility] Rx's in the chart. Will monitor Please do not hesitate to contact me with questions or concerns. Travis Faye DPM fellow [phone] (2) Cellulitis of right foot: Status: Acute Plan: IV FLUIDS, ANTIBIOTICS, ALBUMIN, WOUND CARE, NAUSEA CONTROL, BLOOD GLUCOSE CONTROL AND MONITORING (3) Sepsis: Status: Acute Qualifiers: Sepsis type: methicillin susceptible Staphylococcus aureus Sepsis acute organ dysfunction status: unspecified Qualified Code(s): A41.01 - Sepsis due to Methicillin susceptible Staphylococcus aureus (4) Abscess of right foot: Status: Resolved (5) Pneumonia: Status: Acute Qualifiers: Pneumonia type: due to unspecified organism Laterality: right Lung location: middle lobe of lung Qualified Code(s): J18.9 - Pneumonia, unspecified organism (6) Dehydration: Status: Acute (7) Hypoalbuminemia: Status: Resolved (8) Hyponatremia: Status: Resolved (9) Hypertension: Status: Chronic Qualifiers: Hypertension type: primary hypertension Qualified Code(s): I10 - Essential (primary) hypertension (10) Diabetic neuropathy: Status: Chronic Qualifiers: Diabetes mellitus type: type 2 Diabetes mellitus complication detail: with other neurological complication Qualified Code(s): E11.49 - Type 2 diabetes mellitus with other diabetic neurological complication (11) Diabetes mellitus: Status: Chronic Qualifiers: Diabetes mellitus complication status: with hyperglycemia Diabetes mellitus intermediate teacher insulin use: with mcfp use Diabetes mellitus type: type 2 Qualified Code(s): E11.65 - Type 2 diabetes mellitus with hyperglycemia; Z79.4 - USP (current) use of insulin
[2021-09-05] MEDS: SNACK - Diabetic Appropriate PO SCH (20:30)
[2021-09-05] MEDS: FLOMAX PO SCH (21:15)
[2021-09-05] MEDS: CRESTOR TAB 10 MG PO SCH (21:15)
[2021-09-05] MEDS: NEURONTIN CAP 100 MG PO SCH (21:15)
[2021-09-05] MEDS: TYLENOL 325 MG TAB PO PRN (22:15)
[2021-09-05] MEDS: ZOFRAN INJ 4 MG VIAL IVP PRN (22:15)
[2021-09-06] MEDS: ULTRAM PO PRN (01:47)
[2021-09-06] MEDS: NS 1,000 ML IV 1,000 ML IV SCH (05:50)
[2021-09-06 06:54] LABS: BASOPHILS % (AUTO) 0.7 % (0.2-1.0); EOSINOPHILS # (AUTO) 0.1 x10^3/uL (0.0-0.2); EOSINOPHILS % (AUTO) 1.7 % (0.9-2.9); HEMATOCRIT 23.7 % (42.0-54.0); HEMOGLOBIN 8.3 g/dL (13.5-18.0); LYMPHOCYTES % (AUTO) 19.8 % (21.0-51.0); MEAN CORPUSCULAR HEMOGLOBIN 27.3 pg (27.0-34.0); MEAN CORPUSCULAR HGB CONC 34.9 g/dL (33.0-35.0); MEAN CORPUSCULAR VOLUME 78.3 fL (80.0-100.0); MEAN PLATELET VOLUME 6.1 fL (7.4-11.0); MONOCYTES # (AUTO) 0.5 x10^3/uL (0.3-0.8); MONOCYTES % (AUTO) 10.9 % (0.0-13.0); NEUTROPHILS # (AUTO) 3.2 x10^3/uL (2.2-4.8); NEUTROPHILS % (AUTO) 66.9 % (42.0-75.0); RED BLOOD COUNT 3.03 X10^6/uL (4.7-6.0); RED CELL DISTRIBUTION WIDTH 16.4 % (11.6-16.5); WHITE BLOOD COUNT 4.8 X10^3/uL (3.6-10.0)
[2021-09-06 07:12] LABS: ALANINE AMINOTRANSFERASE 40 Units/L (12-78); ALBUMIN 3.2 g/dL (3.4-5.0); ALKALINE PHOSPHATASE 160 Units/L (46-116); ASPARTATE AMINO TRANSFERASE 21 Units/L (15-37); BLOOD UREA NITROGEN 13 mg/dL (7-18); CALCIUM 8.5 mg/dL (8.5-10.1); CARBON DIOXIDE 22.5 mmol/L (21-32); CHLORIDE 103 mmol/L (98-107); COR CA(FOR HYPOALB) 9.1 mg/dL (8.5-10.1); COR NA(FOR HYPERGLY) 140 mmol/L (136-145); CREATININE 0.99 mg/dL (0.70-1.30); SODIUM 138 mmol/L (136-145); TOTAL PROTEIN 6.5 g/dL (6.4-8.2); eGFR NON BLACK RACES > 60 (>60)
[2021-09-06] MEDS ORDERED: ALLEGRA ONE (08:51)
[2021-09-06] MEDS: LOPID PO SCH (08:58)
[2021-09-06] MEDS: ZINC SULFATE PO SCH (08:58)
[2021-09-06] MEDS: LOVENOX INJ 40 MG SYR SC SCH (08:58)
[2021-09-06] MEDS: SYNTHROID 75 mcg TAB PO SCH (08:59)
[2021-09-06] MEDS: COZAAR PO SCH (08:59)
[2021-09-06] MEDS: HEMOCYTE-PLUS PO SCH (08:59)
[2021-09-06] MEDS: VSL#3 PO SCH (09:00)
[2021-09-06] MEDS: VITAMIN B-12 PO SCH (09:00)
[2021-09-06] MEDS: REGLAN TAB 10 MG PO SCH (09:00)
[2021-09-06] MEDS: TOPROL XL PO SCH (09:00)
[2021-09-06] MEDS: ZYVOX TAB 600 MG PO SCH (09:01)
[2021-09-06] MEDS: VITAMIN D3 125 mcg (5,000 UNITS) PO SCH (09:01)
[2021-09-06] MEDS: PROTONIX TAB 40 MG PO SCH (09:01)
[2021-09-06] MEDS: MAG-OX TAB PO SCH (09:02)
[2021-09-06] MEDS: PEPCID TAB 40 MG PO SCH (09:02)
[2021-09-06] MEDS: ALLEGRA PO SCH (09:03)
[2021-09-06] MEDS: SAXAGLIPTIN 5 MG PO SCH (09:05)
[2021-09-06] MEDS: NovoLIN R (or HumuLIN R) SUBCUT SCH ×2 (09:06→11:25)
[2021-09-06] MEDS: LEVAQUIN PREMIX IV 750 MG 750 MG/150 ML BAG IV SCH (09:06)
[2021-09-06] MEDS: DUONEB 0.5 MG/3 MG (3 mL) NEB SCH (09:21)
[2021-09-06 10:45] VITALS: BP 166/97
[2021-09-06] MEDS: ALBUMIN HUMAN 25%- 100 ML 100 ML IV SCH (11:14)
== END 2021-09-06 11:35 | disposition home health service (06) | DRG 853 ==
LOC: MED/SURG 13:37 → ER 13:37 → OBSVTOIN 16:29 → MED/SURG 16:47
PROVIDERS: ADMIT Internal Medicine; ATTEND Internal Medicine
DX: J18.8 Other pneumonia, unspecified organism; E87.1 Hypo-osmolality and hyponatremia; M86.671 Other chronic osteomyelitis, right ankle and foot; E78.2 Mixed hyperlipidemia; B95.62 Methicillin resistant Staphylococcus aureus infection as the cause of diseases classified elsewhere; E11.49 Type 2 diabetes mellitus with other diabetic neurological complication; A41.01 Sepsis due to Methicillin susceptible Staphylococcus aureus; E03.8 Other specified hypothyroidism; B95.1 Streptococcus, group B, as the cause of diseases classified elsewhere; M24.571 Contracture, right ankle; R26.89 Other abnormalities of gait and mobility; L03.115 Cellulitis of right lower limb; L02.611 Cutaneous abscess of right foot; Z79.4 Long term (current) use of insulin; I48.91 Unspecified atrial fibrillation; M14.671 Charcot's joint, right ankle and foot; E86.0 Dehydration; E11.65 Type 2 diabetes mellitus with hyperglycemia; I87.2 Venous insufficiency (chronic) (peripheral); A48.0 Gas gangrene; I10 Essential (primary) hypertension

== ENCOUNTER 2021-11-13 10:45 | Observation (INO) ==
[2021-11-13 08:37] VITALS: BMI 27.8
[~2021-11-13 10:45] MED LIST: ANCEF VIAL 1 GRAM ONE; NS 1,000 ML IV 1,000 ML ONE; NS 100 ML IV 100 ML ONE
[2021-11-13] MEDS ORDERED: MARCAINE 0.25% INJ ONE (10:52)
[2021-11-13] MEDS ORDERED: BETADINE SOLN ONE (10:53)
[2021-11-13] MEDS ORDERED: DILAUDID INJ ONE ×2 (11:36→15:09)
[2021-11-13] MEDS ORDERED: ZEMURON 50 MG VIAL ONE (11:36)
[2021-11-13] MEDS ORDERED: EPHEDRINE SULFATE INJ ONE (11:36)
[2021-11-13] MEDS ORDERED: QUELICIN (OR ANECTINE) ONE (11:36)
[2021-11-13] MEDS ORDERED: VERSED ONE (11:36)
[2021-11-13] MEDS ORDERED: FENTANYL VIAL INJ 100 mcg ONE (11:36)
[2021-11-13] MEDS ORDERED: SUPRANE ONE (11:36)
[2021-11-13] MEDS ORDERED: PHENERGAN INJ 25 MG IM PRN (13:52)
[2021-11-13] MEDS ORDERED: REGLAN INJ 10 MG VIAL IVP PRN (13:52)
[2021-11-13] MEDS ORDERED: ZOFRAN INJ 4 MG VIAL IVP PRN ×2 (13:52→14:32)
[2021-11-13] MEDS ORDERED: BENADRYL INJ 50 MG VIAL IVP PRN (13:52)
[2021-11-13] MEDS ORDERED: DILAUDID INJ IVP PRN (13:52)
[2021-11-13] MEDS ORDERED: BARHEMSYS INJ IVP PRN (13:52)
[2021-11-13] MEDS ORDERED: NS 1,000 ML IV 1,000 ML ONE (14:15)
[2021-11-13] MEDS ORDERED: TYLENOL 325 MG TAB PO PRN (14:32)
[2021-11-13] MEDS: PERCOCET TAB 5/325 MG PO PRN ×2 (17:00→23:49)
[2021-11-13] MEDS: DILAUDID INJ IVP PRN (20:36)
[2021-11-13] MEDS: COLACE CAP 100 MG PO SCH (20:47)
[2021-11-13] MEDS: ZOFRAN INJ 4 MG VIAL IVP PRN (21:00)
[2021-11-14] MEDS: DILAUDID INJ IVP PRN ×3 (04:11→14:41)
[2021-11-14] MEDS: ZOFRAN INJ 4 MG VIAL IVP PRN ×2 (05:23→10:02)
[2021-11-14 06:03] LABS: BLOOD UREA NITROGEN 17 mg/dL (7-18); CARBON DIOXIDE 26.4 mmol/L (21-32); CHLORIDE 104 mmol/L (98-107); COR NA(FOR HYPERGLY) 140 mmol/L (136-145); CREATININE 1.12 mg/dL (0.70-1.30); SODIUM 139 mmol/L (136-145); eGFR NON BLACK RACES > 60 (>60)
[2021-11-14 06:17] LABS: BASOPHILS % (AUTO) 0.4 % (0.2-1.0); EOSINOPHILS # (AUTO) 0.1 x10^3/uL (0.0-0.2); HEMATOCRIT 31.8 % (42.0-54.0); HEMOGLOBIN 11.1 g/dL (13.5-18.0); LYMPHOCYTES # (AUTO) 0.9 X10^3/uL (1.3-2.9); LYMPHOCYTES % (AUTO) 14.6 % (21.0-51.0); MEAN CORPUSCULAR HEMOGLOBIN 28.5 pg (27.0-34.0); MEAN CORPUSCULAR HGB CONC 34.8 g/dL (33.0-35.0); MEAN CORPUSCULAR VOLUME 81.8 fL (80.0-100.0); MEAN PLATELET VOLUME 7.2 fL (7.4-11.0); MONOCYTES # (AUTO) 0.8 x10^3/uL (0.3-0.8); NEUTROPHILS # (AUTO) 4.4 x10^3/uL (2.2-4.8); RED BLOOD COUNT 3.89 X10^6/uL (4.7-6.0); RED CELL DISTRIBUTION WIDTH 16.8 % (11.6-16.5); WHITE BLOOD COUNT 6.4 X10^3/uL (3.6-10.0)
[2021-11-14] MEDS ORDERED: LOVENOX INJ 40 MG SYR SC SCH (09:00)
[2021-11-14] MEDS: NS 1,000 ML IV 1,000 ML IV SCH (14:31)
--- NOTE | 2021-11-14 14:43 | PCM.PROG ---
Progress Note Progress Note for Day of Date of Exam: 11/14/21 Subjective Subjective: Mr. Lynch is a 61 year old male who is s/p right LE charcot reconstruction, DOS was 11/13. He is doing well with no pain. He does have some nausea and vomiting. He denies any fever or chills, calf pain or sob. Past Medical Family Social History Past Med/Fam/Surg Hx: No changes since H&P Allergies: Allergies codeine Adverse Reaction (Verified 01/28/19 16:32) RASH Vital Signs and I&O's Vital Signs: Temperature 98.6 F Pulse Rate [Right Brachial] 108 Pulse Rate 95 Respiratory Rate 18 Blood Pressure [Right Arm] 133/66 Blood Pressure [Left Arm] 166/97 Blood Pressure 133/71 O2 Sat by Pulse Oximetry 94 Intake and Output: Intake & Output 11/11/21 11/12/21 11/13/21 11/14/21 23:59 23:59 23:59 23:59 Intake Total 3110 / 3110 30 / 30 Output Total 1249 / 1249 1060 / 1060 Balance 1861 / 1861 -1030 / -1030 Physical Exam Oriented: Normal, Time, Person and Place Skin: Other (Right LE dressing is c/d/ and intact. Very mild strike through noted laterally. ) Speech Pattern: Clear and Appropriate Laboratory and Diagnostics Result Diagrams: 11/14/21 04:47 11/14/21 04:47 Labs: Laboratory WBC 6.4 X10^3/uL (3.6-10.0) 11/14/21 04:47 RBC 3.89 X10^6/uL (4.7-6.0) L 11/14/21 04:47 Hgb 11.1 g/dL (13.5-18.0) L 11/14/21 04:47 Hct 31.8 % (42.0-54.0) L 11/14/21 04:47 MCV 81.8 fL (80.0-100.0) 11/14/21 04:47 MCH 28.5 pg (27.0-34.0) 11/14/21 04:47 MCHC 34.8 g/dL (33.0-35.0) 11/14/21 04:47 RDW 16.8 % (11.6-16.5) H 11/14/21 04:47 Plt Count 218 X10^3/uL (150.0-450.0) 11/14/21 04:47 MPV 7.2 fL (7.4-11.0) L 11/14/21 04:47 Neut % (Auto) 70.0 % (42.0-75.0) 11/14/21 04:47 Lymph % (Auto) 14.6 % (21.0-51.0) L 11/14/21 04:47 [place] % (Auto) 13.0 % (0.0-13.0) 11/14/21 04:47 Eos % (Auto) 2.0 % (0.9-2.9) 11/14/21 04:47 Baso % (Auto) 0.4 % (0.2-1.0) 11/14/21 04:47 Neut # (Auto) 4.4 x10^3/uL (2.2-4.8) 11/14/21 04:47 Lymph # (Auto) 0.9 X10^3/uL (1.3-2.9) L 11/14/21 04:47 [place] # (Auto) 0.8 x10^3/uL (0.3-0.8) 11/14/21 04:47 Eos # (Auto) 0.1 x10^3/uL (0.0-0.2) 11/14/21 04:47 Baso # (Auto) 0.0 X10^3/uL (0.0-0.1) 11/14/21 04:47 Absolute Nucleated RBC 0.0 /100WBC 11/14/21 04:47 Sodium 139 mmol/L (136-145) 11/14/21 04:47 Corrected Sodium 140 mmol/L (136-145) 11/14/21 04:47 Potassium 4.1 mmol/L (3.5-5.1) 11/14/21 04:47 Chloride 104 mmol/L (98-107) 11/14/21 04:47 Carbon Dioxide 26.4 mmol/L (21-32) 11/14/21 04:47 BUN 17 mg/dL (7-18) 11/14/21 04:47 Creatinine 1.12 mg/dL (0.70-1.30) 11/14/21 04:47 Est GFR (MDRD) Af Amer > 60 (>60) 11/14/21 04:47 Est GFR (MDRD) Non-Af > 60 (>60) 11/14/21 04:47 Glucose 152 mg/dL (65-99) H 11/14/21 04:47 Calcium 9.0 mg/dL (8.5-10.1) 11/14/21 04:47 SARS-CoV-2 (PCR) Negative (NEGATIVE) 11/13/21 08:16 Tissue Pathology To follow 11/13/21 13:37 Plan (1) Charcot's joint, right ankle and foot: Status: Acute Plan: Mr. Lynch is a 61 yo male who is s/p right charcot reconstruction, DOS was 11/13. Patient with some nausea and vomiting. He is with VSS and NAD. Plan: Patient is to keep his dressing c/d/i. NO dressing change until he follows up with Dr. Ismael LEWIS on the right Elevate x 2 pillows Rx's in the chart Pending PT evaluation If patient feels better later today and the nausea and vomiting has resolved he should be ok for discharge if he does not feel better he may need to stay one more night. Please do not hesitate to contact me with questions or concerns. Travis Faye DPM Fellow [phone]
[2021-11-14] MEDS ORDERED: COMPAZINE PO PRN (18:20)
[2021-11-14] MEDS ORDERED: BENTYL CAP 10 MG PO PRN (18:20)
[2021-11-14] MEDS ORDERED: [UNRECOGNIZED DRUG - OTHER] PO SCH (18:30)
[2021-11-14] MEDS ORDERED: ESOMEPRAZOLE MAGNESIUM PO SCH (18:30)
[2021-11-14] MEDS ORDERED: CLARITIN-D 12 HOUR TAB PO PRN (18:49)
[2021-11-14] MEDS: MOTRIN TAB 600 MG PO PRN (18:50)
[2021-11-14] MEDS ORDERED: MELATONIN PO PRN (18:52)
[2021-11-14] MEDS ORDERED: INSULIN REGULAR HUM U SUBCUT SCH (21:00)
[2021-11-14] MEDS ORDERED: LANTUS SC SCH (21:00)
[2021-11-14] MEDS ORDERED: CRESTOR TAB 10 MG PO SCH (21:00)
[2021-11-14] MEDS: PATIENT'S HOME MEDICATION (Icosapent Ethyl [Vascepa] 1 gram Capsule) PO SCH (21:00)
[2021-11-14] MEDS: ELIQUIS PO SCH (21:00)
[2021-11-14] MEDS ORDERED: NEURONTIN CAP 100 MG PO SCH (21:00)
[2021-11-14] MEDS ORDERED: FLOMAX PO SCH (21:00)
[2021-11-14] MEDS ORDERED: GLUCOPHAGE ONE (21:21)
[2021-11-14] MEDS: GLUCOPHAGE PO SCH (21:31)
[2021-11-14] MEDS: COZAAR PO SCH (21:31)
[2021-11-14] MEDS: COLACE CAP 100 MG PO SCH (21:32)
[2021-11-14] MEDS: SYNTHROID 75 mcg TAB PO SCH (21:32)
[2021-11-14] MEDS: TOPROL XL PO SCH (21:32)
[2021-11-14] MEDS: PROTONIX TAB 40 MG PO SCH (21:33)
[2021-11-14] MEDS: PEPCID TAB 40 MG PO SCH (21:33)
[2021-11-14] MEDS: REGLAN TAB 10 MG PO SCH (21:33)
[2021-11-15] MEDS: NS 1,000 ML IV 1,000 ML IV SCH (03:23)
[2021-11-15 05:39] LABS: BASOPHILS % (AUTO) 0.4 % (0.2-1.0); EOSINOPHILS # (AUTO) 0.2 x10^3/uL (0.0-0.2); EOSINOPHILS % (AUTO) 4.4 % (0.9-2.9); HEMATOCRIT 29.6 % (42.0-54.0); HEMOGLOBIN 10.3 g/dL (13.5-18.0); LYMPHOCYTES # (AUTO) 1.4 X10^3/uL (1.3-2.9); LYMPHOCYTES % (AUTO) 24.6 % (21.0-51.0); MEAN CORPUSCULAR HEMOGLOBIN 28.7 pg (27.0-34.0); MEAN CORPUSCULAR HGB CONC 34.8 g/dL (33.0-35.0); MEAN CORPUSCULAR VOLUME 82.3 fL (80.0-100.0); MEAN PLATELET VOLUME 7.1 fL (7.4-11.0); MONOCYTES # (AUTO) 0.9 x10^3/uL (0.3-0.8); MONOCYTES % (AUTO) 15.8 % (0.0-13.0); NEUTROPHILS # (AUTO) 3.1 x10^3/uL (2.2-4.8); NEUTROPHILS % (AUTO) 54.8 % (42.0-75.0); RED BLOOD COUNT 3.59 X10^6/uL (4.7-6.0); RED CELL DISTRIBUTION WIDTH 16.5 % (11.6-16.5); WHITE BLOOD COUNT 5.6 X10^3/uL (3.6-10.0)
[2021-11-15 05:43] LABS: ALANINE AMINOTRANSFERASE 28 Units/L (12-78); ALKALINE PHOSPHATASE 75 Units/L (46-116); ASPARTATE AMINO TRANSFERASE 11 Units/L (15-37); BLOOD UREA NITROGEN 16 mg/dL (7-18); CALCIUM 9.1 mg/dL (8.5-10.1); CARBON DIOXIDE 28.6 mmol/L (21-32); CHLORIDE 101 mmol/L (98-107); COR CA(FOR HYPOALB) 9.9 mg/dL (8.5-10.1); COR NA(FOR HYPERGLY) 138 mmol/L (136-145); CREATININE 0.94 mg/dL (0.70-1.30); SODIUM 137 mmol/L (136-145); TOTAL PROTEIN 6.1 g/dL (6.4-8.2); eGFR NON BLACK RACES > 60 (>60)
[2021-11-15] MEDS ORDERED: GLUCOPHAGE ONE (05:56)
[2021-11-15] MEDS: GLUCOPHAGE PO SCH (06:02)
[2021-11-15] MEDS ORDERED: MAG-OX TAB ONE (06:52)
[2021-11-15] MEDS ORDERED: HEMOCYTE-PLUS ONE (06:52)
[2021-11-15] MEDS ORDERED: HYDROCHLOROTHIAZIDE 25 MG TAB ONE (06:53)
[2021-11-15] MEDS ORDERED: VITAMIN D3 125 mcg (5,000 UNITS) ONE (06:54)
[2021-11-15 08:15] VITALS: BP 132/63
[2021-11-15] MEDS: ELIQUIS PO SCH (08:45)
[2021-11-15] MEDS: COZAAR PO SCH (08:45)
[2021-11-15] MEDS: PATIENT'S HOME MEDICATION (Icosapent Ethyl [Vascepa] 1 gram Capsule) PO SCH (08:46)
[2021-11-15] MEDS: PEPCID TAB 40 MG PO SCH (08:47)
[2021-11-15] MEDS: PROTONIX TAB 40 MG PO SCH (08:47)
[2021-11-15] MEDS: REGLAN TAB 10 MG PO SCH (08:47)
[2021-11-15] MEDS: SYNTHROID 75 mcg TAB PO SCH (08:48)
[2021-11-15] MEDS: TOPROL XL PO SCH (08:48)
[2021-11-15] MEDS ORDERED: HEMOCYTE-PLUS PO SCH (09:00)
[2021-11-15] MEDS ORDERED: SAXAGLIPTIN 5 MG PO SCH (09:00)
[2021-11-15] MEDS ORDERED: CIALIS PO SCH (09:00)
[2021-11-15] MEDS ORDERED: MAG-OX TAB PO SCH (09:00)
[2021-11-15] MEDS ORDERED: VITAMIN D3 125 mcg (5,000 UNITS) PO SCH (09:00)
[2021-11-15] MEDS ORDERED: HYDROCHLOROTHIAZIDE 25 MG TAB PO SCH (09:00)
[2021-11-15] MEDS ORDERED: VSL#3 PO SCH (09:00)
[2021-11-15] MEDS: MOTRIN TAB 600 MG PO PRN (09:16)
[2021-11-15] MEDS ORDERED: INSULIN REGULAR HUM U SUBCUT SCH (12:00)
== END 2021-11-15 10:04 | disposition home or self-care (01) ==
LOC: MED/SURG
PROVIDERS: ADMIT Podiatrist; ATTEND Internal Medicine
DX: M19.271 Secondary osteoarthritis, right ankle and foot; Z20.822 Contact with and (suspected) exposure to COVID-19; E11.610 Type 2 diabetes mellitus with diabetic neuropathic arthropathy; R26.89 Other abnormalities of gait and mobility; M86.8X7 Other osteomyelitis, ankle and foot; E11.65 Type 2 diabetes mellitus with hyperglycemia